=== PATIENT | male | born 2000 | race Caucasian/White ===

== ENCOUNTER 2021-03-15 12:46 | Outpatient (REF) | payer OTHER, SELFPAY ==
[2021-03-15 13:57] LABS: MANUAL DIFF FLAG NO
[2021-03-15 14:10] LABS: Basophils Percent Auto 0.5 % (0-2); Eosinophils Absolute Auto 0.2 X10*3/uL (0.0-0.4); Eosinophils Percent Auto 3.3 % (0-4); Hemoglobin 12.9 g/dl (14.0-18.0); Imm Gran Abs Auto 0.02 X10*3/uL (0.00-0.03); Imm Gran Pct Auto 0.3 % (0.0-0.4); Lymphocytes Absolute Auto 1.9 X10*3/uL (1.2-4.9); Lymphocytes Percent Auto 29.6 % (20-40); Mean Corpuscular HGB Conc 33.9 g/dl (31.0-36.0); Mean Corpuscular Hemoglobin 30.3 pg (27.0-33.0); Mean Corpuscular Volume 89.2 fL (80-98); Mean Platelet Volume 10.9 fL (9.4-12.4); Monocytes Absolute Auto 0.5 X10*3/uL (0.1-1.2); Monocytes Percent Auto 8.4 % (2-11); Neutrophils Absolute Auto 3.7 X10*3/uL (2.0-8.3); Neutrophils Percent Auto 57.9 % (45-73); Platelet Count 269 X10*3/uL (160-400); Red Blood Count 4.26 X10*6/uL (4.60-5.80); Red Cell Distribution Width 13.1 % (11.0-16.0); White Blood Count 6.3 X10*3/uL (4.8-10.8)
[2021-03-15 14:43] LABS: Alanine Aminotransferase 18 U/L (0-40); Albumin Level 4.5 g/dL (3.5-5.0); Alkaline Phosphatase 120 U/L (39-117); Anion Gap 13 (12-20); Aspartate Amino Transferase 21 U/L (5-37); Bilirubin Total 0.5 mg/dL (0.0-1.0); Blood Urea Nitrogen 10 mg/dL (9-16); Calcium 10.3 mg/dL (8.4-10.2); Carbon Dioxide 28 mmol/L (22-29); Chloride 104 mmol/L (96-108); Estimated Glomerular Filt Rate > 60; Glucose Fasting 81 mg/dL (60-99); Potassium 4.2 mmol/L (3.3-5.1); Sodium 141 mmol/L (135-145)
[2021-03-15 15:05] LABS: TSH reflex Free T4 0.31 uIU/mL (0.32-4.0)
[2021-03-15 16:21] LABS: Free T4 (Free Thyroxine) 0.91 ng/dL (0.71-1.85)
== END 2021-03-15 12:47 | disposition home or self-care (01) ==
LOC: HO.WFDLDS 12:46
PROVIDERS: Visit Provider Family Medicine
DX: Z00.00 Encounter for general adult medical examination without abnormal findings (principal); Z15.09 Genetic susceptibility to other malignant neoplasm
CPT/HCPCS: 36415; 80053; 84439; 84443; 85025

== ENCOUNTER 2022-07-12 09:28 | Outpatient (REF) | payer MEDICARE, MEDICAID, SELFPAY ==
[2022-07-12 11:24] LABS: MANUAL DIFF FLAG NO
[2022-07-12 11:41] LABS: Appearance Urine Clear; Color Urine Yellow; Glucose Urine UA Negative (Negative); Leukocyte Esterase Urine Negative (Negative); Nitrite Urine Negative (Negative); PH 6.5 (5.0-9.0); Specific Gravity - Urine 1.025 (1.005-1.025); Urine Blood Negative (Negative); Urine Ketones Negative (Negative); Urine Protein Negative (Neg-Trace)
[2022-07-12 11:47] LABS: Basophils Percent Auto 0.4 % (0-2); Eosinophils Absolute Auto 0.2 X10*3/uL (0.0-0.4); Eosinophils Percent Auto 3.4 % (0-4); Hematocrit 39.8 % (42.0-52.0); Hemoglobin 13.2 g/dl (14.0-18.0); Imm Gran Abs Auto 0.01 X10*3/uL (0.00-0.03); Imm Gran Pct Auto 0.2 % (0.0-0.4); Lymphocytes Absolute Auto 1.8 X10*3/uL (1.2-4.9); Lymphocytes Percent Auto 35.8 % (20-40); Mean Corpuscular HGB Conc 33.2 g/dl (31.0-36.0); Mean Corpuscular Hemoglobin 28.1 pg (27.0-33.0); Mean Corpuscular Volume 84.7 fL (80.0-98.0); Monocytes Absolute Auto 0.4 X10*3/uL (0.1-1.2); Monocytes Percent Auto 7.1 % (2-11); Neutrophils Absolute Auto 2.6 x10*3/uL (2.0-8.3); Neutrophils Percent Auto 53.1 % (45-73); Platelet Count 294 X10*3/uL (160-400); Red Cell Distribution Width 11.9 % (11.0-16.0); White Blood Count 4.9 X10*3/uL (4.8-10.8)
[2022-07-12 13:48] LABS: Alanine Aminotransferase 13 U/L (0-40); Albumin Level 4.6 g/dL (3.5-5.0); Alkaline Phosphatase 116 U/L (39-117); Anion Gap 11 (12-20); Aspartate Amino Transferase 16 U/L (5-37); Bilirubin Total 0.5 mg/dL (0.0-1.0); Blood Urea Nitrogen 18 mg/dL (9-16); Calcium 10.7 mg/dL (8.4-10.2); Carbon Dioxide 31 mmol/L (22-29); Chloride 100 mmol/L (96-108); Cholesterol 159 mg/dL; Estimated Glomerular Filt Rate > 60; Glucose Fasting 93 mg/dL (60-99); HDL Cholesterol 63 mg/dL; LDL Cholesterol Calculated 81 mg/dl; Potassium 4.4 mmol/L (3.3-5.1); Sodium 138 mmol/L (135-145); TSH reflex Free T4 1.69 uIU/mL (0.32-4.0); Total Protein 7.1 g/dL (6.5-8.0); Triglycerides 75 mg/dL
[2022-07-15 08:14] LABS: HBS Num1 0.38 mIU/mL (0-7.99); HBc Num1 0.07 S/CO (0.00-0.79); HBsAGNum1 0.31 S/CO (0.00-0.99); HIV AB/AG Nonreactive (Nonreactive); HIV Num 1 0.08 S/CO (0.00-0.99); Hepatitis B Core Antibody Nonreactive (Nonreactive); Hepatitis B Surface Antigen Negative (Negative); ~HepC Num1 0.08 S/CO (0.00-0.79); ~Hepatitis B Surface Antibody NONREACTIVE (Nonreactive); ~Hepatitis C Antibody Nonreactive (Nonreactive)
[2022-07-15 08:42] LABS: Syphilis Screen Nonreactive (Nonreactive)
== END 2022-07-12 09:29 | disposition home or self-care (01) ==
LOC: HO.WFDLDS 09:28
PROVIDERS: Visit Provider Family Medicine
DX: Z00.00 Encounter for general adult medical examination without abnormal findings (principal); N50.812 Left testicular pain; Z11.3 Encounter for screening for infections with a predominantly sexual mode of transmission
CPT/HCPCS: 36415; 80053; 80061; 81003; 84443; 85025; 86704; 86706; 86780; 86803; 87340; 87389

== ENCOUNTER 2022-08-13 13:16 | Outpatient (REF) | payer MEDICARE, MEDICAID, SELFPAY ==
--- NOTE | ~2022-08-13 | US_ITS ---
EXAMINATION: US SCROTUM CLINICAL INFORMATION: Left testicular lump. COMPARISON: None TECHNIQUE: A sonogram of the scrotum was performed assessing roger-scale appearance and color Doppler flow. Spectral Doppler analysis of the arterial and venous flow were performed in the testes bilaterally. FINDINGS: RIGHT: Right testicle measures 1.5 x 0.6 x 1.1 cm, volume 0.5 mL. No focal testicular parenchymal lesions are visualized. Spectral Doppler analysis of the arterial and venous flow is normal in the right testis. Right epididymal head is normal in size. No right hydrocele or varicocele is seen. Right epididymal Doppler flow is normal. LEFT: Left testicle measures 1.7 x 0.9 x 1.3 cm, volume 1.1 mL. No focal testicular parenchymal lesions are visualized. Spectral Doppler analysis of the arterial and venous flow is normal in the left testis. Left epididymal is not visualized. No left hydrocele or varicocele is seen. Left epididymal Doppler flow is normal. US/US scrotum IMPRESSION: 1. Unremarkable bilateral testes and right epididymis. 2. The left epididymis is not visualized.
== END 2022-08-13 13:17 | disposition home or self-care (01) ==
LOC: HO.US 13:16
PROVIDERS: PCP Family Medicine; Visit Provider Family Medicine
DX: N50.812 Left testicular pain (principal)
CPT/HCPCS: 76870

== ENCOUNTER 2022-12-26 10:06 | Outpatient (REF) | payer MEDICARE, MEDICAID, SELFPAY ==
[2022-12-26 11:15] LABS: MANUAL DIFF FLAG NO
[2022-12-26 11:37] LABS: Basophils Percent Auto 0.8 % (0-2); Eosinophils Absolute Auto 0.2 X10*3/uL (0.0-0.4); Eosinophils Percent Auto 3.6 % (0-4); Hematocrit 37.5 % (42.0-52.0); Hemoglobin 12.8 g/dl (14.0-18.0); Imm Gran Abs Auto 0.01 X10*3/uL (0.00-0.03); Imm Gran Pct Auto 0.2 % (0.0-0.4); Lymphocytes Absolute Auto 1.9 X10*3/uL (1.2-4.9); Lymphocytes Percent Auto 38.4 % (20-40); Mean Corpuscular HGB Conc 34.1 g/dl (31.0-36.0); Mean Corpuscular Hemoglobin 29.2 pg (27.0-33.0); Mean Corpuscular Volume 85.6 fL (80.0-98.0); Mean Platelet Volume 10.7 fL (9.4-12.4); Monocytes Absolute Auto 0.4 X10*3/uL (0.1-1.2); Monocytes Percent Auto 7.6 % (2-11); Neutrophils Absolute Auto 2.5 x10*3/uL (2.0-8.3); Neutrophils Percent Auto 49.4 % (45-73); Platelet Count 319 X10*3/uL (160-400); Red Blood Count 4.38 X10*6/uL (4.60-5.80); Red Cell Distribution Width 12.7 % (11.0-16.0)
[2022-12-26 11:47] LABS: Alanine Aminotransferase 18 U/L (0-40); Albumin Level 4.6 g/dL (3.5-5.0); Alkaline Phosphatase 128 U/L (39-117); Anion Gap 13 (12-20); Aspartate Amino Transferase 19 U/L (5-37); Bilirubin Total 0.4 mg/dL (0.0-1.0); Blood Urea Nitrogen 11 mg/dL (9-16); Calcium 10.3 mg/dL (8.4-10.2); Carbon Dioxide 28 mmol/L (22-29); Chloride 106 mmol/L (96-108); Estimated Glomerular Filt Rate > 60; Glucose Random 97 mg/dL (60-115); Iron 79 mcg/dL (45-160); Percent Iron Saturation 24 % (15-50); Potassium 3.8 mmol/L (3.3-5.1); Sodium 143 mmol/L (135-145); Total Iron Binding Capacity 326 mcg/dL (228-428); Total Protein 7.2 g/dL (6.5-8.0); Unsaturated Iron Binding 247 ug/dL
[2022-12-26 12:21] LABS: Folate 14.5 ng/mL (> or = 4.0); Vitamin B12 674 pg/mL (200-900); Vitamin D 25-OH Total 26.8 ng/mL (>30)
== END 2022-12-26 10:07 | disposition home or self-care (01) ==
LOC: HO.WFDLDS 10:06
PROVIDERS: Visit Provider Family Medicine
DX: Z00.00 Encounter for general adult medical examination without abnormal findings (principal); R10.13 Epigastric pain; E55.9 Vitamin D deficiency, unspecified; E53.8 Deficiency of other specified B group vitamins; D64.9 Anemia, unspecified; R10.9 Unspecified abdominal pain
CPT/HCPCS: 36415; 80053; 82306; 82607; 82746; 83540; 85025

== ENCOUNTER 2023-02-03 08:05 | Outpatient (REF) | payer OTHER, SELFPAY | END 2023-02-03 08:06 | disposition home or self-care (01) | LOC: HO.WFDLNP 08:05 | PROVIDERS: Visit Provider Family Medicine | DX: R10.13 Epigastric pain (principal) | CPT/HCPCS: 87338 ==

== ENCOUNTER 2023-03-04 15:18 | Outpatient (AMB) | payer OTHER, SELFPAY ==
--- NOTE | 2023-03-04 15:20 | MHC.PC.OV ---
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 Accompanied by: Self / Same As Patient Allergies lorazepam [From Ativan] Allergy (Severe, Verified 03/04/23 15:20) Vomiting codeine [CODEINE] Allergy (Unknown, Verified 03/04/23 15:20) UNKNOWN Codeine Phosphate Allergy (Intermediate, Uncoded 03/04/23 10:23) vomitting Tobacco use date assessed: 01/28/23 Dental Screening Dental Screen Date: 03/04/23 Did you have a dental visit in the last 12 months?: Yes Did you have a dental problem in the last 6 months where you did not have access to dental care?: No Was dental information given to patient?: Patient has dentist HPI f/u anemia, labs, chronic conditions HPI Details Patient had recent visit to [facility] for abdominal pain and nausea with vertigo. Had moved his head while sleeping and vertigo started. He was told he had significant nystagmus at home. He went to [place] and was given fluids and ondansetron. Began to feel better and was sent home. 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 Scheduled for follow-up in a few weeks. Still has ongoing mild anemia which Hematology-Oncology is also working up. Elevated calcium level. He is no longer on a calcium Supplement. 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 History of partial surgical removal of colon Family History Mother Brain cancer Lung cancer Maternal Grandmother Lung cancer Sister Bone cancer Social History (Updated 03/04/23 @ 15:27 by Mekhi Serra CMA) Household Members: None Housing: Other Alcohol intake: never Patient Tobacco Use Status: Current everyday Tobacco user Tobacco use type: Cigarette Years Smoked: 6 e-Cigarette/Vaping Use: Currently Using Second Hand Smoke Exposure: No Substance Use Type: Marijuana service: No Current occupational status: unemployed and disabled Current occupational exposures/hazards: No Cognitive needs: No Hearing needs: No Vision needs: No Questionnaire PHQ-9 Over the last 2 weeks, how often have you been bothered by any of the following problems? 1. Little interest or pleasure in doing things: several days 2. Feeling down, depressed, or hopeless: several days 3. Trouble falling or staying asleep, or sleeping too much: several days 4. Feeling tired or having little energy: more than half the days 5. Poor appetite or overeating: several days 6. Feeling bad about yourself - or that you are a failure or have let yourself or your family down: not at all 7. Trouble concentrating on things, such as reading the newspaper or watching television: several days 8. Moving or speaking so slowly that other people could have noticed. Or the opposite - being so fidgety or restless that you have been moving around a lot more than usual: not at all 9. Thoughts that you would be better off or of hurting yourself in some way: not at all Total score: 7 Depression Screening Interpretation: Positive 81949 - PHQ-9 Billing: Yes Source: Developed by Drs. Harris Higginbotham, Carina Hernandez, Burton Martinez and colleagues, with an educational meg from [employer] 6. Thrive Questionnaire Date Thrive assessed: 03/04/23 I am a: Patient What is your living situation today?: I have a steady place to live Within the past 12 months, did the food you bought not last and you didn't have the money to get more?: Never true Within the past 12 months, did you worry whether your food would run out before you got money to buy more?: Never true Do you have trouble paying for medicines?: No Do you have trouble getting transportation to medical appointments?: No Do you have trouble paying your heating and electricity bill?: No Do you have trouble taking care of your child, family member or friend?: No Do you have trouble with day-to-day activities such as bathing, preparing meals, shopping, managing finances, etc.?: No Are you currently unemployed and looking for a job?: No Are you interested in more education?: No Please select the resources that you would like help with: None Currently or been in a relationship where the following occur: no concerns reported LEX-7 AMB Questionnaire LEX-7 Date LEX - 7 assessed: 03/04/23 Feeling nervous, anxious, or on edge: 3 = Nearly every day Not being able to stop or control worryin = Nearly every day Worrying too much about different things: 3 = Nearly every day Trouble relaxin = Several days Being so restless that it is hard to sit still: 0 = Not at all Becoming easily annoyed or irritable: 1 = Several days Feeling afraid as if something awful might happen: 1 = Several days Total LEX-7 score (0-4 normal; 5-9 mild; 10-14 moderate; 15-21 severe): 12 Source: Developed by Drs. Harris Higginbotham, Carina Hernandez, Burton Martinez and colleagues, with an educational meg from [employer] 6. LEX-7 Assessment Billing LEX-7 Assessment Tool: LEX-7 Assessment 38341 Review of Systems Const Denies chills, Denies fatigue, Denies fever(s), Denies headache(s) and Denies weakness ENT Denies dizziness and Denies headache(s) Card Denies chest pain, Denies lightheadedness, Denies dyspnea and Denies other (Palpitations) Resp Denies cough, Denies dyspnea, Denies wheezing and Denies other ( shortness of breath) Musc Denies numbness and Denies tingling Neuro Denies dizziness, Denies headache(s), Denies numbness, Denies tingling, Denies paresthesias and Denies weakness Psych Denies anxiety and Denies depression Endo Denies fatigue Aller/Immun Denies wheezing Physical exam (Primary Care) Vital Signs: Last Vital Signs Pulse 82 03/04/23 15:25 BP 112/60 03/04/23 15:25 Pulse Ox 98 03/04/23 15:25 BMI result Body Mass Index 15.8 Tobacco/Smoking Status: Tobacco use Status Tobacco use date assessed 01/28/23 03/04/23 15:21 Patient Tobacco Use Status Current everyday Tobacco 03/04/23 15:31 Tobacco use type Cigarette 08/01/23 15:27 e-Cigarette/Vaping Use Currently Using 03/04/23 15:27 PHQ-9: PHQ-9 Score PHQ-9: Total score 7 03/04/23 16:18 Depression Screening Interpretation: Positive Thrive Assessment: Date of Thrive Assessment Date Thrive assessed 03/04/23 03/04/23 15:31 Currently or been in a relationship where the following occur: no concerns reported Const General: no acute distress and well developed Nutritional Appearance: well nourished Orientation/consciousness: patient oriented x3 HENMT Head: Yes normocephalic and Yes atraumatic Eyes General: appearance normal, both eyes and all related structures Pupils: Equal, round and reactive pupils present EOM: EOMs intact bilaterally Resp Effort & Inspection: normal respiratory effort Auscultation: clear to auscultation bilaterally Cardio Rate: regular rate Rhythm: regular rhythm Heart sounds: S1 normal heart sound present, S2 normal heart sound present, no gallops, no murmurs and no rubs Neuro General: patient oriented x3 and gait normal Cranial nerves: Yes Equal, round and reactive pupils present Gait exam (Neuro): gait abnormal and Assisted gait required (Ambulates with crutches) Psych Affect: normal affect Assessment and Plan Assessment & Plan (1) Li-Fraumeni syndrome: Code(s): Z15.01 - Genetic susceptibility to malignant neoplasm of breast Plan: Follow-up with Hematology-Oncology (2) Mild anemia: Code(s): D64.9 - Anemia, unspecified Plan: Stable Follow-up with Heme-Onc (3) Vertigo: Code(s): R42 - Dizziness and giddiness Plan: Is symptoms have abated. Has had vertigo previously as well. He will let me know if he has any new symptoms-would refer for vestibular rehab (4) Hypercalcemia: Code(s): E83.52 - Hypercalcemia Plan: Increase hydration Avoid calcium supplements Parathyroid hormone lab still pending Coding Level of Care Code Est Pt Level 4 (26872) Diagnoses Li-Fraumeni syndrome Z15.01 Mild anemia D64.9 Vertigo R42 Hypercalcemia E83.52 Additional Codes LEX-7 Assessment Billing - LEX-7 Assessment Tool: LEX-7 Assessment [id number] ([id number])
[2023-03-04 15:25] VITALS: BP 112/60; PULSE 82; O2SAT 98; BMI 15.8
== END 2023-03-04 16:23 | disposition home or self-care (01) ==
PROVIDERS: PCP Family Medicine; Visit Provider Family Medicine
DX: Z15.01 Genetic susceptibility to malignant neoplasm of breast (principal); D64.9 Anemia, unspecified; R42 Dizziness and giddiness; E83.52 Hypercalcemia
CPT/HCPCS: 99214

== ENCOUNTER → 2023-03-18 10:20 | Outpatient (BNV) | payer OTHER, SELFPAY | PROVIDERS: PCP Family Medicine; Referring Provider Family Medicine; Visit Provider Internal Medicine Medical Oncology | DX: N50.89 Other specified disorders of the male genital organs (principal) | CPT/HCPCS: 99204; 99212; 99213 ==

== ENCOUNTER 2023-03-18 11:02 | Outpatient (REF) | payer OTHER, SELFPAY ==
--- NOTE | ~2023-03-18 | US_ITS ---
EXAMINATION: US SCROTUM CLINICAL INFORMATION: Left testicular mass; history of undescended testes. COMPARISON: Scrotal ultrasound dated 08/13/2022. TECHNIQUE: A sonogram of the scrotum was performed assessing roger-scale appearance and color Doppler flow. Spectral Doppler analysis of the arterial and venous flow were performed in the testes bilaterally. FINDINGS: RIGHT: Right testicle measures 2.1 x 0.6 x 1.7 cm, volume 1.0 mL. No focal testicular parenchymal lesions are visualized. Spectral Doppler analysis of the arterial and venous flow is normal in the right testis. Right epididymal head is normal in size. No right hydrocele or varicocele is seen. Right epididymal Doppler flow is normal. LEFT: Left testicle measures 2.1 x 1.0 x 1.3 cm, volume 1.4 mL. No focal testicular parenchymal lesions are visualized. Spectral Doppler analysis of the arterial and venous flow is normal in the left testis. The left epididymal head is suboptimally visualized but appears to be normal in size. No left hydrocele or varicocele is seen. Left epididymal Doppler flow is normal. US/US scrotum IMPRESSION: Unremarkable ultrasound examination of the bilateral testes and right epididymis. The left epididymis is again suboptimally visualized, without obvious focal finding.
== END 2023-03-18 11:03 | disposition home or self-care (01) ==
LOC: HO.US 11:02
PROVIDERS: PCP Family Medicine; Visit Provider Internal Medicine Medical Oncology
DX: N50.89 Other specified disorders of the male genital organs (principal)
CPT/HCPCS: 76870

== ENCOUNTER 2023-03-24 09:02 | Outpatient (AMB) | payer OTHER, SELFPAY ==
--- NOTE | 2023-03-24 02:10 | A.OFFVIS_ITS ---
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 Intake Note: NEW Patient presents today to established treatment for Testicular Pain: Meds- None Allergies to Antibiotic- No Known Allergies Blood Thinner- None Cone Examiner Required: No Accompanied by: Self / Same As Patient Allergies lorazepam [From Ativan] Allergy (Severe, Verified 03/24/23 09:17) Vomiting codeine [CODEINE] Allergy (Unknown, Verified 03/24/23 09:17) UNKNOWN Codeine Phosphate Allergy (Intermediate, Uncoded 03/24/23 09:17) vomitting HPI HPI Comments History of Present Illness Details Darius is a 23-year-old male who presents today to the office to establish as a new patient for an evaluation of testicular pain. 03/24/2023? 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 He states that at age 1, he had cancer which was removed from the bladder. He states that he went to ER in the past for testicular pain and lump. He states that the lump has recurred 4 weeks ago. He rates the discomfort as 2/10; rarely does he rate the discomfort as 10/10. He has a history of colon cancer and had a total colectomy 12 years ago. He was seen by the oncologist Dr. Driver and underwent a scrotal ultrasound. His family history is significant for bone, lung, and brain cancer. He is currently smoking marijuana and vaping. He is scheduled for a whole body MRI. I discussed further evaluation with him, recommending outpatient Cystoscopy due to his h/o bladder cancer; however he declined at this time. He states that he may consider this pending MRI results. I reviewed the scrotum US results from 03/18/2023 revealed unremarkable ultrasound examination of the bilateral testes and right epididymis. The left epididymis suboptimally visualized, without obvious focal finding. Examination: There was a cyst at the head of left epididymis which was non tender. Evaluation today?UA? leukocytes: negative; blood: negative. Plan: Will send urine for cytology. I have discussed that the lump his is feeling is the left epidydmal cyst Reassured him that there are no testicular masses palpable or noted on US Advised to take Motrin and Tylenol if he experiences the discomfort. He has MRI scheduled thru Oncology. Discussed FU outpatient cystoscopy. Pt declines at this time [facility] Medical History (Updated 03/25/23 @ 17:58 by Nancy Driver MD) Mandibular bone loss Li-Fraumeni syndrome Surgical History History of partial surgical removal of colon Amputated left leg Family History Mother Brain cancer Lung cancer Maternal Grandmother Lung cancer Sister Bone cancer Social History Household Members: None Housing: Other Alcohol intake: never Patient Tobacco Use Status: Current everyday Tobacco user Tobacco use type: Cigarette Years Smoked: 6 e-Cigarette/Vaping Use: Currently Using Second Hand Smoke Exposure: No Substance Use Type: Marijuana service: No Current occupational status: unemployed and disabled Current occupational exposures/hazards: No Cognitive needs: No Hearing needs: No Vision needs: No Review of Systems Const All systems reviewed & are unremarkable except as noted in HPI and below Reports no additional complaints Eyes Reports no additional complaints ENT Reports no additional complaints Card Denies dyspnea Resp Denies cough and Denies dyspnea GI Reports no additional complaints Musc Reports no additional complaints Skin/Breast Denies rash and Denies unusual bruising Neuro Reports no additional complaints Psych Reports no additional complaints Endo Reports no additional complaints Andrew/Lymph Reports no additional complaints Aller/Immun Reports no additional complaints Physical Exam Const General: healthy appearing, no acute distress and well developed Orientation/consciousness: patient oriented x3 HEENT Head: Yes normocephalic and Yes atraumatic Eyes Conjunctivae: conjunctivae normal Neck Neck: Yes normal visual inspection Chest Chest palpation & inspection: normal inspection of the chest Resp Effort & Inspection: normal respiratory effort Cardio Rate: regular rate GI Inspection: Yes normal to inspection Palpation (GI): Soft to palpation Other: Left epidydmal cyst Scrotum: scrotum normal Skin General skin exam: no rashes or lesions noted Neuro General: patient oriented x3 Extrem Other: left leg amputated General: No pedal edema Psych Appearance: grossly normal Affect: normal affect Results AMB Urinalysis, Automated UA Leukoctes 0 Ruby/uL Last Edit by GEETA Ng on 03/24/23 09:33 UA Nitrite Negative Last Edit by GEETA Ng on 03/24/23 09:33 UA Urobilinogen 0.2 mg/dL Last Edit by GEETA Ng on 03/24/23 09:3 3 UA Protein 0 mg/dL Last Edit by GEETA Ng on 03/24/23 09:33 UA pH 6.0 Last Edit by GEETA Ng on 03/24/23 09:33 UA Blood 0 Andrea/uL Last Edit by GEETA Ng on 03/24/23 09:33 UA Specific Nicholson 1.020 Last Edit by GEETA Ng on 03/24/23 09: 33 UA Ketone Negative Last Edit by GEETA Ng on 03/24/23 09:33 UA Bilirubin 0 mg/dL Last Edit by GEETA Ng on 03/24/23 09:33 UA Glucose 0 mg/dL Last Edit by GEETA Ng on 03/24/23 09:33 Results Reviewed Results Reviewed: Laboratory Last Values Urine pH (Auto) 6.0 03/24/23 09:17 Specific Nicholson (Auto) 1.020 03/24/23 09:17 Urine Protein (Auto) 0 mg/dL 03/24/23 09:17 Glucose (UA)(Auto) 0 mg/dL 03/24/23 09:17 Urine Ketones (Auto) Negative 03/24/23 09:17 Urine Blood (Auto) 0 Andrea/uL 03/24/23 09:17 Urine Nitrite (Auto) Negative 03/24/23 09:17 Urine Bilirubin (Auto) 0 mg/dL 03/24/23 09:17 Urine Urobilinogen (Auto) 0.2 mg/dL 03/24/23 09:17 Leukocyte Esterase (Auto) 0 Ruby/uL 03/24/23 09:17 Date of Service: 03/18/23 EXAMINATION: US SCROTUM CLINICAL INFORMATION: Left testicular mass; history of undescended testes. COMPARISON: Scrotal ultrasound dated 08/13/2022. FINDINGS: RIGHT: Right testicle measures 2.1 x 0.6 x 1.7 cm, volume 1.0 mL. No focal testicular parenchymal lesions are visualized. Spectral Doppler analysis of the arterial and venous flow is normal in the right testis. Right epididymal head is normal in size. No right hydrocele or varicocele is seen. Right epididymal Doppler flow is normal. LEFT: Left testicle measures 2.1 x 1.0 x 1.3 cm, volume 1.4 mL. No focal testicular parenchymal lesions are visualized. Spectral Doppler analysis of the arterial and venous flow is normal in the left testis. The left epididymal head is suboptimally visualized but appears to be normal in size. No left hydrocele or varicocele is seen. Left epididymal Doppler flow is normal. IMPRESSION: Unremarkable ultrasound examination of the bilateral testes and right epididymis. The left epididymis is again suboptimally visualized, without obvious focal finding. Assessment & Plan Assessment & Plan (1) Left testicular pain: Code(s): N50.812 - Left testicular pain (2) History of bladder cancer: Code(s): Z85.51 - Personal history of malignant neoplasm of bladder Plan Will send urine for cytology. I have discussed that the lump his is feeling is the left epidydmal cyst Reassured him that there are no testicular masses palpable or noted on US Advised to take Motrin and Tylenol if he experiences the discomfort. He has MRI scheduled thru Oncology. Discussed FU outpatient cystoscopy. Pt declines at this time Orders: Orders AMB Urinalysis Automated 03/24/23 Z13.9 - Encounter for screening, unspecified Urine Cytology 03/24/23 Z85.51 - Personal history of malignant neoplasm of bladder Patient Instructions: The patient had an opportunity to ask questions regarding treatment plan. All questions were answered. Imaging, Laboratory studies and physical exam results were discussed and reviewed in detail. No major barriers to understanding were identified. The patient expressed understanding and agreement with the above treatment plan.? ? ? The patient is aware they should contact our office by phone for worsening of their current condition or the appearance of new symptoms. Compliance is encouraged with any medications and followup testing that is ordered.? ? ? It is a privilege to be allowed the opportunity to participate in the urologic care of your patient. If you have any questions or concerns regarding treatment for the above conditions please do not hesitate to contact me. The office telephone contact is [phone].? ? ? This note is constructed in part using voice recognition software. While every effort has been made to ensure accuracy medical records supervisor errors may have been included.? ? ? Yours sincerely,? ? ? Yanelis Ramachandran MD? Coding Level of Care Code New Pt Level 4 (64926) Diagnoses Left testicular pain N50.812 History of bladder cancer Z85.51
== END 2023-03-24 11:10 | disposition home or self-care (01) ==
PROVIDERS: PCP Family Medicine; Visit Provider Urology
DX: N50.812 Left testicular pain (principal); Z85.51 Personal history of malignant neoplasm of bladder
CPT/HCPCS: 99204

== ENCOUNTER 2023-03-24 09:02 | Outpatient (REF) | payer MEDICARE, MEDICAID, SELFPAY ==
[2023-03-24 17:52] LABS: Urine Cytology See Pathology rpt
== END 2023-03-24 09:03 | disposition home or self-care (01) ==
LOC: HO.LAB 09:02
PROVIDERS: PCP Family Medicine; Visit Provider Urology
DX: N50.812 Left testicular pain (principal); Z85.51 Personal history of malignant neoplasm of bladder
CPT/HCPCS: 81003; 88112; 99202

== ENCOUNTER 2023-06-23 08:19 | Outpatient (AMB) | payer OTHER, SELFPAY ==
[2023-06-23 08:26] VITALS: BP 102/64; PULSE 78; RESP 13; O2SAT 99
--- NOTE | 2023-06-23 08:26 | MHC.PC.OV ---
Vital Signs 06/23/23 08:26 Height 5 ft 5 in BP 102/64 Blood Pressure Location Lt brachial Position Sitting Respiration 13 Pulse 78 Pulse Source Pulse Oximeter Pulse Oximetry (%) 99 Oxygen Delivery Method Room Air Intake Visit Reasons: [facility] [place] Urology - cystoscopy Accompanied by: Self / Same As Patient Allergies lorazepam [From Ativan] Allergy (Severe, Verified 06/23/23 08:36) Vomiting codeine [CODEINE] Allergy (Unknown, Verified 06/23/23 08:36) UNKNOWN Codeine Phosphate Allergy (Intermediate, Uncoded 06/23/23 08:36) vomitting Tobacco use date assessed: 01/28/23 HPI [facility] [place] Urology - cystoscopy HPI Details Li Fraumeni Syndrome [facility] Should have Whole Body MRI Annually Should have GI screening SOB Likely 2nd to Late Chemo effects and Smoking. Should get chest CT Testiculat lump: U/S shows likely Epidydimal cyst MRI shows R Kidney Cyst. Renal U/S Urinary changes and will get Cystoscopy Patient is here for a pre-op for upcoming cystoscopy. Patient reports he was seen by another provider and was concerned for his right lung- way of breathing. Patient reports he has lactating nipples and he would like to have that checked out. They are painful, pressure builds up and he has to squeeze the liquid from his chest. Patient reports he has a painful foot after banging it on metal. Patient reports this hurts more with pressure. Patient is requesting a new RX for [place] crutches/forearm crutches as the ones he currently has are falling apart. [facility] Medical History (Updated 06/23/23 @ 09:28 by Leonel Booth) Mandibular bone loss Li-Fraumeni syndrome Surgical History History of partial surgical removal of colon Amputated left leg Family History Mother Brain cancer Lung cancer Maternal Grandmother Lung cancer Sister Bone cancer Social History Household Members: None Housing: Other Alcohol intake: never Patient Tobacco Use Status: Current everyday Tobacco user Tobacco use type: Cigarette Years Smoked: 6 e-Cigarette/Vaping Use: Currently Using Second Hand Smoke Exposure: No Substance Use Type: Marijuana service: No Current occupational status: unemployed and disabled Current occupational exposures/hazards: No Cognitive needs: No Hearing needs: No Vision needs: No Questionnaire Thrive Questionnaire Date Thrive assessed: 03/04/23 LEX-7 AMB Questionnaire LEX-7 Date LEX - 7 assessed: 03/04/23 Source: Developed by Drs. Harris Higginbotham, Carina Hernandez, Burton Martinez and colleagues, with an educational meg from [employer]. Review of Systems Const Denies chills, Denies fatigue, Denies fever(s), Denies headache(s) and Denies weakness ENT Denies dizziness and Denies headache(s) Card Reports dyspnea Resp Denies cough, Reports dyspnea, Denies wheezing and Denies other (shortness of breath) Musc Denies numbness and Denies tingling Neuro Denies dizziness, Denies headache(s), Denies numbness, Denies tingling and Denies weakness Psych Denies anxiety and Denies depression Endo Denies fatigue Aller/Immun Denies wheezing Physical exam (Primary Care) Vital Signs: Last Vital Signs Pulse 78 06/23/23 08:26 Resp 13 06/23/23 08:26 BP 102/64 06/23/23 08:26 Pulse Ox 99 06/23/23 08:26 Oxygen Delivery Method Room Air 06/23/23 08:26 Tobacco/Smoking Status: Tobacco use Status Tobacco use date assessed 01/28/23 06/23/23 08:39 Patient Tobacco Use Status Current everyday Tobacco 06/23/23 08:39 Tobacco use type Cigarette 06/23/23 08:39 e-Cigarette/Vaping Use Currently Using 06/23/23 08:39 Thrive Assessment: Date of Thrive Assessment Date Thrive assessed 03/04/23 06/23/23 08:39 Const General: well developed; No acute distress Nutritional Appearance: well nourished Orientation/consciousness: patient oriented x3 HENMT Head: Yes normocephalic and Yes atraumatic Eyes General: appearance normal, both eyes and all related structures Pupils: Equal, round and reactive pupils present EOM: EOMs intact bilaterally Resp Other: Crackles down at the bases bilateral bases Effort & Inspection: normal respiratory effort Cardio Rate: regular rate Rhythm: regular rhythm Heart sounds: S1 normal heart sound present, S2 normal heart sound present, no gallops, no murmurs and no rubs Neuro General: patient oriented x3 and gait normal Cranial nerves: Yes Equal, round and reactive pupils present Psych Affect: normal affect Assessment and Plan Assessment & Plan (1) 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 Encouraged?ongoing?cessation. (4) SOB (shortness of breath): Code(s): R06.02 - Shortness of breath Plan: Likely?a?combination?of?late?chemo?affects?and?smoking/vaping Has?CT?scan?schedule Added?PFTs Encouraged?smoking?cessation (5) Cyst of right kidney: Code(s): N28.1 - Cyst of kidney, acquired Plan: Cyst?on?right?kidney?seen?on?whole-body?MRI?this?year. Checking?ultrasound (6) Shortness of breath: Code(s): R06.02 - Shortness of breath Plan: As?above (7) Nipple discharge in male: Code(s): N64.52 - Nipple discharge Plan: Breast?swelling?and?nipple?discharge. Check?prolactin?level Referred?to Endocrine Can?use?hot?water?in?shower?or?how?compresses (8) Breast swelling: Code(s): N63.0 - Unspecified lump in unspecified breast Plan: As?above (9) Amputated left leg: Code(s): S88.912A - Complete traumatic amputation of left lower leg, level unspecified, initial encounter Plan: Needs?new?Mauritian?crutches-ordered (10) Nicotine dependence: Code(s): F17.200 - Nicotine dependence, unspecified, uncomplicated Plan: As?above (11) Anemia: Code(s): D64.9 - Anemia, unspecified Plan: Check?CBC Orders: Orders Pulmonary Test/Procedure Today R06.02 - Shortness of breath Complete Blood Count Auto Diff Today D64.9 - Anemia, unspecified, Z00.00 - Encounter for general adult medical examination without abnormal findings Prolactin Today N64.52 - Nipple discharge Comprehensive Met. Panel Today N64.52 - Nipple discharge Medications: Refilled crutches Walk Easy Crutches - 1 Pair 1 ea 0RF S88.912A - Complete traumatic amputation of left lower leg, level unspecified, initial encounter Coding Level of Care Code Est Pt Level 4 (62710) Diagnoses Li-Fraumeni syndrome Z15.01 History of bladder cancer Z85.51 Smoker F17.200 SOB (shortness of breath) R06.02 Cyst of right kidney N28.1 Nipple discharge in male N64.52 Breast swelling N63.0 Amputated left leg S88.912A Nicotine dependence F17.200 Anemia D64.9
== END 2023-06-23 09:36 | disposition home or self-care (01) ==
PROVIDERS: PCP Family Medicine; Visit Provider Family Medicine
DX: N64.52 Nipple discharge (principal); S88.912A Complete traumatic amputation of left lower leg, level unspecified, initial encounter; Z15.01 Genetic susceptibility to malignant neoplasm of breast; Z85.51 Personal history of malignant neoplasm of bladder; F17.210 Nicotine dependence, cigarettes, uncomplicated; R06.02 Shortness of breath; N28.1 Cyst of kidney, acquired; D64.9 Anemia, unspecified
CPT/HCPCS: 99214

== ENCOUNTER 2023-06-23 09:30 | Outpatient (REF) | payer OTHER, SELFPAY ==
[2023-06-23 11:22] LABS: MANUAL DIFF FLAG NO
[2023-06-23 11:39] LABS: Basophils Percent Auto 0.6 % (0-2); Eosinophils Absolute Auto 0.4 X10*3/uL (0.0-0.4); Eosinophils Percent Auto 5.2 % (0-4); Hemoglobin 13.2 g/dl (14.0-18.0); Imm Gran Abs Auto 0.02 X10*3/uL (0.00-0.03); Imm Gran Pct Auto 0.3 % (0.0-0.4); Lymphocytes Absolute Auto 2.7 X10*3/uL (1.2-4.9); Lymphocytes Percent Auto 40.2 % (20-40); Mean Corpuscular Hemoglobin 28.4 pg (27.0-33.0); Mean Corpuscular Volume 86.2 fL (80.0-98.0); Mean Platelet Volume 10.7 fL (9.4-12.4); Monocytes Absolute Auto 0.5 X10*3/uL (0.1-1.2); Monocytes Percent Auto 6.7 % (2-11); Neutrophils Absolute Auto 3.2 x10*3/uL (2.0-8.3); Platelet Count 366 X10*3/uL (160-400); Red Blood Count 4.64 X10*6/uL (4.60-5.80); Red Cell Distribution Width 13.3 % (11.0-16.0); White Blood Count 6.8 X10*3/uL (4.8-10.8)
[2023-06-23 12:54] LABS: Alanine Aminotransferase 46 U/L (0-40); Albumin Level 4.8 g/dL (3.5-5.0); Alkaline Phosphatase 122 U/L (39-117); Anion Gap 10 (12-20); Aspartate Amino Transferase 33 U/L (5-37); Bilirubin Total 0.3 mg/dL (0.0-1.0); Blood Urea Nitrogen 12 mg/dL (9-16); Calcium 10.9 mg/dL (8.4-10.2); Carbon Dioxide 28 mmol/L (22-29); Chloride 106 mmol/L (96-108); Estimated Glomerular Filt Rate > 60; Glucose Random 90 mg/dL (60-115); Potassium 3.8 mmol/L (3.3-5.1); Sodium 140 mmol/L (135-145); Total Protein 7.7 g/dL (6.5-8.0)
[2023-06-24 08:08] LABS: Prolactin 19.2 ng/mL (2.0-18.0)
== END 2023-06-23 09:31 | disposition home or self-care (01) ==
LOC: HO.WFDLDS 09:30
PROVIDERS: Visit Provider Family Medicine
DX: Z00.00 Encounter for general adult medical examination without abnormal findings (principal); N64.52 Nipple discharge; D64.9 Anemia, unspecified
CPT/HCPCS: 36415; 80053; 84146; 85025

== ENCOUNTER → 2023-06-30 09:53 | Outpatient (REF) | payer OTHER, SELFPAY ==
--- NOTE | ~2023-06-30 | US_ITS ---
EXAMINATION: US RETROPERITONEAL LIMITED (RENAL ONLY) CLINICAL INFORMATION: Renal cyst. COMPARISON: None available. TECHNIQUE: Real-time imaging of the kidneys. FINDINGS: RIGHT KIDNEY: 9.1 x 4.0 x 4.3 cm (SAG x AP x TRV). The kidney is normal in size, contour, and echogenicity. Renal cortical thickness is normal. No calculi or focal parenchymal lesions. No hydronephrosis. LEFT KIDNEY: 9.2 x 4.2 x 4.0 cm (SAG x AP x TRV). The kidney is normal in size, contour, and echogenicity. Renal cortical thickness is normal. At the upper pole, a 6 mm benign, simple cyst is seen, which requires no imaging follow-up. No renal calculi. There is very mild hydronephrosis. US/US renal BI IMPRESSION: 1. There is very mild hydronephrosis. No left hydronephrosis is seen. 2. No solid mass or calculus is seen of the bilateral kidneys.
--- NOTE | 2023-06-30 09:56 | CA_ITS ---
Transthoracic Echocardiogram Patient (Last, First, Middle): Darius Horta, Gender: Male Date of : 2000 Age: 23 Procedure Date: 06/30/2023 Procedure Type: Transthoracic Echocardiogram Location: OP Height: 165.1 cm Weight: 45.36 kg BSA: 1.47 m2 Heart Rate: 61 bpm BP: 130 / 80 mmHg Rn Telephonic: DARLENE/BILL Referring MD: Nancy Driver MD Outsole Flexer: Luis Rutledge MD Symptoms: had adriamycin Study Quality: Adequate ECG Rhythm: Sinus Conclusions: - Normal study Findings Left Ventricle Normal left ventricular size, thickness, and systolic function. The visually estimated ejection fraction is between 60-65%. Diastolic function is normal for age. Peak GLS is -18.8%, within normal limits. Right Ventricle Normal right ventricular cavity size and systolic function. Atria Both atria are normal in size. Interatrial shunt cannot be excluded. Aortic Valve Normal aortic valve structure and function. There is no aortic valve stenosis. There is no aortic valve regurgitation. Mitral Valve Normal mitral valve structure and function. There is trace mitral valve regurgitation. There is no mitral valve stenosis. Pulmonic Valve The pulmonic valve is likely normal. There is trace pulmonic valve regurgitation. Tricuspid Valve Normal tricuspid valve structure. There is trace tricuspid valve regurgitation. The right ventricular systolic pressure is normal. The right ventricular systolic pressure is 19 mmHg. Normal right atrial pressure. There is no evidence of pulmonary hypertension. Great Vessels All visible segments of the aorta are normal in size. The visualized portions of the pulmonary artery and branches are normal. Venous The inferior vena cava is normal in size and collapses greater than 50% with inspiration. Pericardium/Pleural There is no evidence of pericardial effusion. Prior Study Comparison No prior study available for comparison. Measurements 2D Linear Measurements IVSd: 0.53 0.6-0.9/0.6-1.0 cm LVIDd: 4.56 3.9-5.3/4.2-5.9 cm LVIDd Index: 3.10 2.4-3.2/2.2-3.1 cm/m2 LVIDs: 3.39 2.0-3.6 cm LVPWd: 0.63 0.7-1.1 cm LA Diam: 2.80 2.7-3.8/3.0-4.0 cm LAIDs Index: 1.90 1.5-2.3 cm/m2 LV Mass: 95.82 67-162/88-224 g LV Mass Index: 65.18 43-95/49-115 g/m2 LVOT Diam: 1.80 3.0+(-)1.3 cm Mitral Valve MV Pk E: 1.17 MV PK A: 0.35 MV Decel Time: 180.00 E/A: 3.30 E'Lateral: 15.00 E'Medial: 10.10 E/E' Med: 11.60 E/E' Lat: 7.80 PHT: 53.00 MVA PHT: 4.15 Decel Nuckolls: 6.54 Aortic Valve AoV Pk Mario: 0.99 AoV Mn Mario: 0.73 AoV VTI: 0.23 AoV Pk Grad: 4.00 Aov Mn Grad: 2.00 FORTUNATO Cont.VTI: 1.82 LVOT LVOT Pk Mario: 0.78 LVOT Mn Mario: 0.53 LVOT VTI: 0.16 LVOT Pk Grad: 2.00 LVOT Mn Grad: 1.00 LVOT Diam: 1.80 LVOT Area: 2.54 Diastolic Function MV Pk E: 1.17 MV Pk A: 0.35 E/A: 3.30 E'Medial: 10.10 E/E' Med: 11.60 E' Laterial: 15.00 E/E' Lat: 7.80 Right Ventricle TAPSE (mm): 19.90 TVS' Mario: 12.30 Tricuspid Valve TR Pk Mario: 2.02 TR Pk Grad: 16.00 RA Press: 3.00 RVSP: 19.00 Great Vessels Aorta Sinus of Valsalva: 2.58 2.0-3.5 cm Ao Asc: 2.20 2.1-3.4 cm Ao Arch: 2.20 Updated in Other Vendor System with Status of Final Luis Rutledge MD electronically signed on 06/30/2023 3:50:21 PM with status of Final
== END ==
LOC: HO.CARD 09:53
PROVIDERS: PCP Family Medicine; Visit Provider Internal Medicine Medical Oncology
DX: N28.1 Cyst of kidney, acquired (principal); I50.9 Heart failure, unspecified
CPT/HCPCS: 76775; 93306; 93356

== ENCOUNTER → 2023-06-30 09:56 | Outpatient (BNV) | payer OTHER, SELFPAY | PROVIDERS: PCP Family Medicine; Visit Provider Internal Medicine Cardiovascular Disease | DX: I50.9 Heart failure, unspecified (principal) | CPT/HCPCS: 93306 ==

== ENCOUNTER 2023-07-09 10:18 | Outpatient (REF) | payer OTHER, SELFPAY ==
--- NOTE | ~2023-07-09 | CT_ITS ---
EXAMINATION: CT CHEST WITH CONTRAST CLINICAL INFORMATION: Shortness of breath. COMPARISON: None available. TECHNIQUE: Multidetector volumetric CT imaging of the chest was obtained after the administration of 65 mL of Omnipaque 350 intravenous contrast without immediate adverse reactions. Axial MIP volume rendering provided. Sagittal and coronal reformatted images were obtained. This CT examination was performed using dose optimization techniques as appropriate, variously including the following: *Automated exposure control *Adjustment of mA and/or kV according to patient size (this includes techniques or standardized protocols for targeted exams where dose is matched to indication/reason for exam; i.e. extremities or head) *Use of iterative reconstruction technique DLP: 98 mGy-cm FINDINGS: LUNGS: Mildly thick-walled airways with subtle mosaic attenuation suggesting air trapping. No consolidation. Triangular subpleural nodule in the right lower lobe measures 5 mm and is consistent with a parenchymal lymph node. No follow-up imaging is recommended. MEDIASTINUM: Residual thymic tissue in the anterior mediastinum. No mass. No lymphadenopathy. No pericardial effusion. PLEURA: There is no pleural effusion. No pleural mass or thickening. AXILLA: No lymphadenopathy. UPPER ABDOMEN: 1 cm hypoattenuating lesion in segment 7 of the liver likely hemangioma. OSSEOUS STRUCTURES: Unremarkable. CT/CT chest w IV con IMPRESSION: Mild airways disease. No focal pneumonia. 1 cm hypoattenuating lesion in segment 7 of the liver is most likely hemangioma in the absence of a personal history of malignancy and/or chronic liver disease. Correlate clinically. Consider follow-up ultrasound if clinically indicated. Fleischner guidelines were followed.
[2023-07-09] MEDS: iohexoL 350 MG/ML 100 ML INFUS..BTL IV (11:34)
== END 2023-07-09 10:19 | disposition home or self-care (01) ==
LOC: HO.CT 10:18
PROVIDERS: PCP Family Medicine; Visit Provider Internal Medicine Medical Oncology
DX: R06.02 Shortness of breath (principal)
CPT/HCPCS: 71260; Q9967

== ENCOUNTER 2023-07-10 15:41 | Outpatient (AMB) | payer OTHER, SELFPAY ==
--- NOTE | 2023-07-10 15:42 | A.OFFVIS_ITS ---
Intake Intake Visit Reasons: Discuss Cysto hydrodistention Intake Note: Patient presents today via phone to discuss Cystoscopy Meds- None Allergies to Antibiotic- No Known Allergies Blood Thinner- None Hand Model Required: No Accompanied by: Self / Same As Patient Allergies lorazepam [From Ativan] Allergy (Severe, Verified 08/01/23 09:44) Vomiting, manic Codeine Phosphate Allergy (Severe, Uncoded 08/01/23 09:44) vomitting HPI HPI Comments History of Present Illness Details Darius is a 23-year-old male who presents today via Tele-health visit for a follow-up. 07/10/2023? He is followed today to discuss cystoscopy. He was last seen by me on 03/24/2023, urine was sent for cytology which came back with atypical cells. 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 He states that at age 1, he had cancer which was removed from the bladder. His family history is significant for bone, lung, and brain cancer. He is currently smoking marijuana and vaping. I previously recommended outpatient Cystoscopy due to his h/o bladder cancer; which he declined but agrees to proceed at this time Whole body MRI results 05/26/23-- new 9 mm indeterminal left kidney lesion. 06/30/23 US RENAL --At the upper pole, a 6 mm benign, simple cyst is seen, which requires no imaging follow-up. No renal calculi. There is very mild hydronephrosis. Review of charts: Last visit: 03/24/2023? He states that he went to ER in the past for testicular pain and lump. He states that the lump has recurred 4 weeks ago. He rates the discomfort as 2/10; rarely does he rate the discomfort as 10/10. He has a history of colon cancer and had a total colectomy 12 years ago. He was seen by the oncologist Dr. Driver and underwent a scrotal ultrasound. I reviewed the scrotum US results from 03/18/2023 revealed unremarkable ultrasound examination of the bilateral testes and right epididymis. The left epididymis suboptimally visualized, without obvious focal finding. Examination: There was a cyst at the head of left epididymis which was non tender. 07/10/2023: Plan: I reviewed the plan for cystoscopy in OR under anaesthesia and possible bladder biopsy and this will be arranged through office staff. Left kidney lesion on MRI corresponds to simple cyst on fu renal ultrasound [facility] Medical History (Updated 08/03/23 @ 08:13 by Yanelis Ramachandran MD) Multiple body piercings History of colon cancer History of bone cancer Hx of bladder cancer Anxiety Chronic bronchitis Renal cyst History of chemotherapy PONV (postoperative nausea and vomiting) PTSD (post-traumatic stress disorder) Colostomy in place Nausea and vomiting Abdominal pain ADHD Depression Mandibular bone loss Li-Fraumeni syndrome Surgical History (Updated 08/01/23 @ 09:37 by Yecenia Abraham, RN) Hx of abdominal surgery History of removal of Port-a-Cath History of left lower limb amputation Hx of colectomy History of partial surgical removal of colon Amputated left leg Family History Mother Brain cancer Lung cancer Maternal Grandmother Lung cancer Sister Bone cancer Social History (Updated 08/01/23 @ 09:42 by Yecenia Abraham, RN) Household Members: None Housing: Other Are you a primary geriatric personal care aide to a significant other at home: No Do you presently have visiting nurse or other home services: No Alcohol intake: never Comment: aware of trip hazard Patient Tobacco Use Status: Former Tobacco user Tobacco use type: Cigarette Years Smoked: 6 e-Cigarette/Vaping Use: Currently Using Frequency of e-Cigarette/Vaping Use: vapes daily marijuana and nicotine Second Hand Smoke Exposure: No Use of substances other than those prescribed or required for medical reasons: Yes Substance Use Type: Marijuana Substance Use Frequency: Daily Have you been hit, kicked, punched, or otherwise hurt by someone within the past year? If so, by whom?: No Are you DNR?: No Advance Directives: No Advance Directives Information Provided: Yes Advance Directives on File: No Recently lost weight without trying: No Poor oral hygiene: No service: No Current occupational status: unemployed and disabled Current occupational exposures/hazards: No Cognitive needs: No Hearing needs: No Vision needs: No Review of Systems Const All systems reviewed & are unremarkable except as noted in HPI and below Reports no additional complaints Eyes Reports no additional complaints ENT Reports no additional complaints Card Denies dyspnea Resp Denies cough and Denies dyspnea GI Reports no additional complaints Musc Reports no additional complaints Skin/Breast Denies rash and Denies unusual bruising Neuro Reports no additional complaints Psych Reports no additional complaints Endo Reports no additional complaints Andrew/Lymph Reports no additional complaints Aller/Immun Reports no additional complaints Results Reviewed Results Reviewed: Date of Service: 06/30/23 EXAMINATION: US RETROPERITONEAL LIMITED (RENAL ONLY) CLINICAL INFORMATION: Renal cyst. COMPARISON: None available. FINDINGS: RIGHT KIDNEY: 9.1 x 4.0 x 4.3 cm (SAG x AP x TRV). The kidney is normal in size, contour, and echogenicity. Renal cortical thickness is normal. No calculi or focal parenchymal lesions. No hydronephrosis. LEFT KIDNEY: 9.2 x 4.2 x 4.0 cm (SAG x AP x TRV). The kidney is normal in size, contour, and echogenicity. Renal cortical thickness is normal. At the upper pole, a 6 mm benign, simple cyst is seen, which requires no imaging follow-up. No renal calculi. There is very mild hydronephrosis. IMPRESSION: 1. There is very mild hydronephrosis. No left hydronephrosis is seen. 2. No solid mass or calculus is seen of the bilateral kidneys. Collected:03/24/23 Diagnosis Urine, cytology: Rare atypical urothelial cells. COMMENT: Review of the cytology preparation demonstrates a mildly cellular specimen composed of few squames and urothelial cells in a background of abundant crystals. A rare group of urothelial cells show mild cytologic atypia. Clinical History History of malignant neoplasm of bladder Material Received Urine Gross Description 35 cc clear yellow fluid Assessment & Plan Assessment & Plan (1) History of bladder cancer: Code(s): Z85.51 - Personal history of malignant neoplasm of bladder (2) Abnormal urine cytology: Code(s): R82.89 - Other abnormal findings on cytological and histological examination of urine (3) Renal cyst, left: Code(s): N28.1 - Cyst of kidney, acquired Plan I reviewed the plan for cystoscopy in OR under anaesthesia and possible bladder biopsy and this will be arranged through office staff. Patient Instructions: The patient had an opportunity to ask questions regarding treatment plan. All questions were answered. Imaging, Laboratory studies and physical exam results were discussed and reviewed in detail. No major barriers to understanding were identified. The patient expressed understanding and agreement with the above treatment plan. The patient is aware they should contact our office by phone for worsening of their current condition or the appearance of new symptoms. Compliance is encouraged with any medications and followup testing that is ordered. It is a privilege to be allowed the opportunity to participate in the urologic care of your patient. If you have any questions or concerns regarding treatment for the above conditions please do not hesitate to contact me. The office telephone contact is [phone]. This note is constructed in part using voice recognition software. While every effort has been made to ensure accuracy supervisor braiding errors may have been included. Yours sincerely, Yanelis Ramachandran MD Telehealth Telehealth Location of provider rendering services: practice address Location of patient: address on file Patient Identification confirmed using: Name, : Yes Telehealth method: voice only Patient verbally consented to treatment: Yes Patient verbally consented to billing insurance company: Yes Patient informed of any privacy concerns related to visit: Yes Minutes spent on Phone/Video with Pt.: 24 Coding Level of Care Code Tele Est Pt Level 4 (85266) Diagnoses History of bladder cancer Z85.51 Abnormal urine cytology R82.89 Renal cyst, left N28.1
--- OUTSIDE RECORDS SUMMARY | 2023-07-10 15:43 | XMS_ITS | Continuity of Care Document ---
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 wash hands thoroughly after application apply to clean, dry, intact skin, # 30 application, 5 Refills, Maintenance, 06/09/17 16:27:27 Start Date: 06/09/17 Status: Ordered clonidine 0.2 mg oral tablet 1 tablet = 0.2 mg, By Mouth, Daily at bedtime, # 90 tablet, 0 Refills, Maintenance Start Date: 02/19/12 Stop Date: 05/19/12 Status: Ordered cyproheptadine 4 mg oral tablet 1 tablet = 4 mg, By Mouth, 2 times a day, for 30 days, # 60 tablet, 11 Refills, Acute 10/05/16 16:49:05, 10/11/15 16:49:05, Tablet, 1 tablet By Mouth 2 times a day,x30 days Start Date: 10/11/15 Stop Date: 10/05/16 Status: Ordered Detrol By Mouth, 2 times a day, 0 Refills, Maintenance, 10/07/13 13:56:29 Start Date: 10/07/13 Status: Ordered Detrol 1 mg oral tablet 1 tablet = 1 mg, By Mouth, 2 times a day, 0 Refills, Maintenance Start Date: 07/19/11 Status: Ordered fluoxetine 10 mg oral tablet 1 tablet = 10 mg, By Mouth, Daily, # 30 tablet, 1 Refills, Maintenance Start Date: 02/17/12 Status: Ordered Gloves See Instructions, PRN, # 1 box, Refills 11, Tot. Refills 11, Maintenance, for ostomy care, Medical gloves for 0stomy care disp # 1 month supply, 01/22/16 12:01:00, Compound Start Date: 01/22/16 Status: Ordered methylphenidate 10 mg oral tablet See Instructions, 1/2 tablet By Mouth at noon after lunch, for ADHD, # 30 tablet, 0 Refills, Maintenance, Tablet Start Date: 02/17/12 Status: Ordered Multivitamin By Mouth, Daily, 0 Refills, Maintenance, 10/27/14 16:59:32 Start Date: 10/27/14 Status: Ordered Nutritional Supplements See Instructions, # 62 bottle, Refills 11, Tot. 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 Refills 11, Maintenance, Jennifer colostomy bags #[id number] and all associated supplies change bag as directed disp# 1 month supply DX: Colon Cancer; Li Fraumeni Syndrome, 02/16/18 17:02:41 EDT, Compound Start Date: 02/16/18 Status: Ordered Periactin Tablet 4 mg, By Mouth, 3 times a day, Maintenance, 10/07/13 13:56:22 Start Date: 10/07/13 Status: Ordered Ritalin LA 20 mg oral capsule, extended release 1 capsule = 20 mg, By Mouth, Daily in AM, # 60 capsule, 0 Refills, Maintenance, CR Capsule Start Date: 02/17/12 Status: Ordered Wellbutrin By Mouth, 0 Refills, Maintenance, 10/27/14 16:58:50 Start Date: 10/27/14 Status: Ordered Problem List Condition Effective Dates Status Health Status Inform ant ADHD - Attention deficit dis order with hyperactivity(Confirmed) Active 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) 06/23/10 Active Clostridium difficile colitis(Confirmed) Active Deferred condition on [place] II(Confirmed) Active Delayed puberty(Confirmed) Active Depressive Disorder, Not Els ewhere Classified(Confirmed) Active Depressive Disorder, Not Els ewhere Classified(Confirmed) 06/23/10 Active Oppositional defiant disorder(Confirmed) Active Osteogenic sarcoma(Confirmed) Active Phantom pain(Confirmed) Active 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 inhaled glass yesterday from a broken weed jar. No sob or diff breathing; Reason: Other:; Chest Pain; ClinicalQuestion(s): Other: COMPARISON: 05/06/2009. FINDINGS: LINES AND TUBES: None. LUNGS AND PLEURA: Clear lungs. Normal pulmonary vascularity. No pleural effusion. No pneumothorax. HEART, MEDIASTINUM AND JAN: Heart is normal in size. Normal upper mediastinal and hilar contour. BONES AND SOFT TISSUES: No acute abnormality. IMPRESSION: No acute abnormality. WSN: [id number] Ordering Physician: Shea Craig Dictated By: Kermit Merrill MD Dictated Date/Time: 10/14/21 10:50 p Reviewed By: Kermit Merrill MD Signed By: Kermit Merrill MD Signed Date/Time: 10/14/21 10:50 pm Transcribed By: BIRGIT Transcribed Date/Time: 10/14/21 10:49 pm Vital Signs Most recent to oldest [Reference Range]: 1 2 3 Oxygen Saturation [94-100 %] 98 % (10/14/21 11:07 PM) 99 % (10/14/21 9:43 PM) 99 % (10/14/21 9:26 PM) Pulse Rate [55-90 bpm] 92 bpm *H* (10/14/21 11:07 PM) 100 bpm *H* (10/14/21 9:43 PM) 81 bpm (10/14/21 9:26 PM) Blood Pressure [90-138/55-84 mm Hg] 145/92mm Hg *H* (10/14/21 11:07 PM) 146/100mm Hg *H* (10/14/21 9:43 PM) 156/109mm Hg *H* (10/14/21 9:26 PM) Respiratory Rate [16-30 br/min] 18 br/min (10/14/21 11:07 PM) 20 br/min (10/14/21 9:43 PM) 16 br/min (10/14/21 9:26 PM) Temperature [96.8-100.4 DegF] 98.2 DegF (10/14/21 9:26 PM) Mode of Delivery (Oxygen) Room air (10/14/21 11:07 PM) Room air (10/14/21 9:43 PM) Room air (10/14/21 9:26 PM) Blood pressure sites Arm, left (10/14/21 11:07 PM) Arm, left (10/14/21 9:43 PM) Arm, right (10/14/21 9:26 PM) Temperature Route Oral (10/14/21 9:26 PM) Social History Social History Type Response Tobacco Use: 4 or less cigar ettes(less than 1/4 pack)/day in last 30 days. Sex
--- OUTSIDE RECORDS SUMMARY | 2023-07-10 15:43 | XMS_ITS | Continuity of Care Document ---
Author Name Unknown Organization [facility] Address [address] [place] [phone]- Care Team Providers Care Office Professional Name Role Phone Jessica DEMPSEY, Eddie Calvo Primary Care Physician [place] [facility] [place] Date(s): 06/06/21 - 07/06/21 [facility] [address] [place] [phone]- Attending Physician: Hoa Pierson Admitting Physician: Hoa Pierson Referring Physician: AdmtrHoa Allergies, Adverse Reactions, Alerts Substance Reaction Severity [...] units, Refills 11, Tot. 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 Sex
--- OUTSIDE RECORDS SUMMARY | 2023-07-10 15:43 | XMS_ITS | Continuity of Care Document ---
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 Role Phone Jessica DEMPSEY, Eddie Calvo Primary Care Physician Encounter [facility] [place] Date(s): 06/06/21 - 03/13/22 [facility] [address] [place] [phone]- Discharge Disposition: A-D/C Home Attending Physician: Kevin Adames MD Admitting Physician: Kevin Adames MD Referring Physician: Not on Staff, Referring MD Allergies, Adverse Reactions, Alerts Substance Reaction Severity Status codeine 1, 2 Codeine allergy Active Ativan Active 1error 2tylenol with codeine Immunizations Given and Recorded Vaccine Date Status Refusal Reason tetanus/diphtheria/pertussis, acel(Tdap) 08/30/19 Recorded influenza virus vaccine, inactivated 08/14/18 Girma rded influenza virus vaccine, inactivated 08/06/16 Girma rded influenza virus vaccine, inactivated 06/10/15 Grima rded influenza virus vaccine, inactivated 07/12/14 Girma rded influenza virus vaccine, inactivated 05/30/11 Girma rded Meningococcal Conjugate Vaccine 03/09/15 Recorded Hepatitis A Pediatric Vaccine 03/09/15 Recorded Medications cloNIDine 0.1 mg oral tablet 0.1 mg, By Mouth, 2 times a day, # 14 tablet, Refills 0, Tot. Refills 0, Maintenance, 02/28/22 12:11:00 EDT, Route to Pharmacy Electronically, [facility]/pharmacy #[id number], Partial fill upon patient request ifthe prescription is for a schedule II opioid drug.,... 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) 06/23/10 Active Clostridium difficile colitis(Confirmed) Active Deferred condition on [place] II(Confirmed) Active Delayed puberty(Confirmed) Active Depressive Disorder, Not Els ewhere Classified(Confirmed) Active Depressive Disorder, Not Els ewhere Classified(Confirmed) 06/23/10 Active Oppositional defiant disorder(Confirmed) 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
--- OUTSIDE RECORDS SUMMARY | 2023-07-10 15:43 | XMS_ITS | Summary of Care ---
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 Activ e Ativan HYPERACTIVITY Active 1mother not sure if allergic but reports rash with use Problem List Condition Confirmation Course Effective Dates Status Health St atus Informant Li-Fraumeni syndrome Confirmed Active Patient Care team information Personnel Name: SUMMER JAVIER MD Address: Address: [address] [place] [id number]
== END 2023-07-10 16:15 | disposition home or self-care (01) ==
LOC: HO.HUSH 15:41
PROVIDERS: PCP Family Medicine; Visit Provider Urology
DX: Z85.51 Personal history of malignant neoplasm of bladder (principal); R82.89 Other abnormal findings on cytological and histological examination of urine; N28.1 Cyst of kidney, acquired
CPT/HCPCS: 99443

== ENCOUNTER → 2023-07-10 15:41 | Outpatient (BNVA) | payer OTHER, SELFPAY | PROVIDERS: PCP Family Medicine; Visit Provider Urology ==

== ENCOUNTER 2023-08-05 09:51 | Day surgery (SDC) | payer OTHER, SELFPAY ==
[2023-07-31 16:34] VITALS: BMI 15.4
[2023-08-01 09:30] VITALS: BMI 16.6
--- NOTE | 2023-08-01 10:59 | HO.ANESPROP2 ---
HPI - Anesthesia Eval Consult details Narrative: 23yo M for Cystoscopy w/ possible Bladder Biopsy Li-Fraumeni syndrome - s/p ostomy, left leg amp Follows with Stacie Cohen and Dr Driver locally. PONV Hx ETOH abuse - none x 10 months PMFSH Active Problems Active Problems: All Active Problems (Updated 08/01/23 @ 09:37 by Yecenia Abraham, RN) Anemia (Acute) Breast swelling (Acute) Nipple discharge in male (Acute) Shortness of breath (Acute) Cyst of right kidney (Acute) Smoker (Acute) History of bladder cancer (Acute) Epididymal cyst (Acute) Nicotine dependence (Acute) Hypercalcemia (Acute) Vertigo (Acute) Li-Fraumeni syndrome (Acute) Chest discomfort (Acute) Epigastric pain (Acute) Mild anemia (Acute) Fatigue (Acute) Adult general medical exam (Acute) Abdominal pain (Acute) Left testicular pain (Acute) Anxiety with depression (Acute) Bug bite with infection (Acute) Alcohol abuse (Acute) Intermittent palpitations (Acute) Homelessness (Acute) Dermatitis (Acute) Anxiety (Acute) Li-Fraumeni syndrome (Acute) Paronychia of great toe (Acute) Li-Fraumeni syndrome (Acute) Amputated left leg (Acute) Past Medical History Medical History Multiple body piercings History of colon cancer History of bone cancer Hx of bladder cancer Anxiety Chronic bronchitis Renal cyst History of chemotherapy PONV (postoperative nausea and vomiting) PTSD (post-traumatic stress disorder) Colostomy in place Nausea and vomiting Abdominal pain ADHD Depression Mandibular bone loss Li-Fraumeni syndrome Family History Family History Mother Brain cancer Lung cancer Maternal Grandmother Lung cancer Sister Bone cancer Surgical History Surgical History Hx of abdominal surgery History of removal of Port-a-Cath History of left lower limb amputation Hx of colectomy History of partial surgical removal of colon Amputated left leg Social History Social History (Updated 08/01/23 @ 09:42 by Yecenia Abraham, RN) Household Members: None Housing: Other Are you a primary career professional to a significant other at home: No Do you presently have visiting nurse or other home services: No Alcohol intake: never Comment: aware of trip hazard Patient Tobacco Use Status: Former Tobacco user Tobacco use type: Cigarette Years Smoked: 6 e-Cigarette/Vaping Use: Currently Using Second Hand Smoke Exposure: No Substance Use Type: Marijuana service: No Current occupational status: unemployed and disabled Current occupational exposures/hazards: No Cognitive needs: No Hearing needs: No Vision needs: No Meds Allergies Allergy/AdvReac Type Severity Reaction Status Date / Time lorazepam [From Ativan] Allergy Severe Vomiting, Verified 08/05/23 10:08 manic Codeine Phosphate Allergy Severe vomitting Uncoded 08/05/23 10:08 Home Medications Medication Instructions Recorded Confirmed Last Taken Type trazodone 50 mg tablet 50 mg PO BEDTIME 05/05/23 07/08/23 Unknown History Exam Height,Weight and Vital Signs: Height 5 ft 5.04 in Weight 45.359 kg Pertinent Lab Results Pertinent Lab Results: Laboratory Tests 06/23/23 09:31 WBC 6.8 Hgb 13.2 L Hct 40.0 L Plt Count 366 Sodium 140 Potassium 3.8 Chloride 106 Carbon Dioxide 28 BUN 12 Creatinine 0.68 Narrative Narrative: ECHO 06/2023 Conclusions: - Normal study Assessment and Plan Assessment Anesthesia Assessment: Chart Reviewed
[2023-08-05] VITALS (8 sets, daily range): BP systolic 88–135; BP diastolic 36–90; PULSE 51–89; RESP 16–18; TEMP 36.3–36.9; O2SAT 99–100
[2023-08-05] MEDS: Lactated Ringers 1,000 ML 100 ML IVCONT (10:12)
--- NOTE | 2023-08-05 11:11 | HO.ANESPROP2 ---
[facility] Active Problems Active Problems: All Active Problems (Updated 08/03/23 @ 08:13 by Yanelis Ramachandran MD) Renal cyst, left (Acute) Abnormal urine cytology (Acute) Anemia (Acute) Breast swelling (Acute) Nipple discharge in male (Acute) Shortness of breath (Acute) Cyst of right kidney (Acute) Smoker (Acute) History of bladder cancer (Acute) Epididymal cyst (Acute) Nicotine dependence (Acute) Hypercalcemia (Acute) Vertigo (Acute) Li-Fraumeni syndrome (Acute) Chest discomfort (Acute) Epigastric pain (Acute) Mild anemia (Acute) Fatigue (Acute) Adult general medical exam (Acute) Abdominal pain (Acute) Left testicular pain (Acute) Anxiety with depression (Acute) Bug bite with infection (Acute) Alcohol abuse (Acute) Intermittent palpitations (Acute) Homelessness (Acute) Dermatitis (Acute) Anxiety (Acute) Li-Fraumeni syndrome (Acute) Paronychia of great toe (Acute) Li-Fraumeni syndrome (Acute) Amputated left leg (Acute) Past Medical History Medical History Multiple body piercings History of colon cancer History of bone cancer Hx of bladder cancer Anxiety Chronic bronchitis Renal cyst History of chemotherapy PONV (postoperative nausea and vomiting) PTSD (post-traumatic stress disorder) Colostomy in place Nausea and vomiting Abdominal pain ADHD Depression Mandibular bone loss Li-Fraumeni syndrome Family History Family History Mother Brain cancer Lung cancer Maternal Grandmother Lung cancer Sister Bone cancer Family history of problems with anesthesia: No Surgical History Surgical History Hx of abdominal surgery History of removal of Port-a-Cath History of left lower limb amputation Hx of colectomy History of partial surgical removal of colon Amputated left leg History of Problems with Anesthesia: Yes Social History Social History (Updated 08/01/23 @ 09:42 by Yecenia Abraham RN) Household Members: None Housing: Other Are you a primary director long term care to a significant other at home: No Do you presently have visiting nurse or other home services: No Alcohol intake: never Comment: aware of trip hazard Patient Tobacco Use Status: Former Tobacco user Tobacco use type: Cigarette Years Smoked: 6 e-Cigarette/Vaping Use: Currently Using Frequency of e-Cigarette/Vaping Use: vapes daily marijuana and nicotine Second Hand Smoke Exposure: No Use of substances other than those prescribed or required for medical reasons: Yes Substance Use Type: Marijuana Substance Use Frequency: Daily Have you been hit, kicked, punched, or otherwise hurt by someone within the past year? If so, by whom?: No Are you DNR?: No Advance Directives: No Advance Directives Information Provided: Yes Advance Directives on File: No Recently lost weight without trying: No Poor oral hygiene: No service: No Current occupational status: unemployed and disabled Current occupational exposures/hazards: No Cognitive needs: No Hearing needs: No Vision needs: No Meds Allergies Allergy/AdvReac Type Severity Reaction Status Date / Time lorazepam [From Ativan] Allergy Severe Vomiting, Verified 08/05/23 10:08 manic Codeine Phosphate Allergy Severe vomitting Uncoded 08/05/23 10:08 Active Medications: Current Medications Fentanyl (Fentanyl Citrate/Pf 100 Mcg/2 Ml Vial) 25 mcg IVPUSH Q5M PRN; Protocol PRN Reason: Pain, Moderate(Pain Scale 4-6) Lactated Ringer's (Lr) 1,000 mls @ 100 mls/hr IVCONT .Q10H TRACI Last Admin: 08/05/23 10:12 Dose: 100 mls/hr Ondansetron HCl (Ondansetron Hcl 4 Mg/2 Ml Vial) 4 mg IVPUSH ONCE PRN PRN Reason: Nausea and Vomiting Home Medications Medication Instructions Recorded Confirmed Last Taken Type trazodone 50 mg tablet 50 mg PO BEDTIME 05/05/23 07/08/23 Unknown History Exam Height,Weight and Vital Signs: Height 5 ft 5.04 in Weight 45.359 kg Last Vital Signs Temp 98.1 F 08/05/23 10:27 Pulse 89 08/05/23 10:27 Resp 18 08/05/23 10:27 BP 130/83 08/05/23 10:27 Pulse Ox 99 08/05/23 10:27 O2 Del Method Room Air 08/05/23 10:27 Airway Mallampati Class: I TM Dist: >3cm Neck ROM: Full Loose/Missing/Broken Teeth: No Heart: rrr Lungs: clear Assessment and Plan Final Anesthetic Review Family History of Problems with Anesthesia: No History of Problems with Anesthesia: Yes ASA Class: III Final Preanesthetic Review: No Changes in Pt Med Stat, Meds/Allgs Chart Reviewed, Consent Obtained/Reviewed and Anes Risks/Benef Reviewed Patient Risk: Intermediate Procedure Risk: Low Anesthetic Plan Anesthetic Plan: GA Disposition: Standard PACU
--- NOTE | 2023-08-05 11:18 | MHC.SHP ---
Pre-Procedural Eval Section A Date of Service: 08/05/23 The patient is an INPATIENT: No The History & Physical has been completed within 30 days and I have reviewed it.: Yes Section B Chief Complaint: Personal history of malignant neoplasm of bladder Allergies: Allergies Allergy/AdvReac Type Severity Reaction Status Date / Time lorazepam [From Ativan] Allergy Severe Vomiting, Verified 08/05/23 10:08 manic Codeine Phosphate Allergy Severe vomitting Uncoded 08/05/23 10:08 Exam Surgical H&P Exam: Normal: HEENT, Normal: Heart, Normal: Lungs and Normal: Neurological Plan Diagnosis/Plan: Unchanged I have reviewed the history and physical and performed a pertinent physical examination on my patient. No changes have occurred unless specified. Cystoscopy bladder biopsy Time Spent With Patient Time: Total time managing care of this patient today ____ minutes.
--- NOTE | 2023-08-05 12:15 | PC.NURSE ---
Dr. Garcia aware that scopolamine patch was ordered and pulled and that patient refused it once opened. returned into bottom drawer of [facility], pharmacy aware.
--- NOTE | 2023-08-05 12:33 | W.PM.OPN ---
Operative Note Operative Note Date of Service: 08/05/23 Narrative: PREOP DIAGNOSIS: History of bladder cancer, atypical cytology POSTOP DIAGNOSIS: History of bladder cancer, atypical cytology PROCEDURE: CYSTOSCOPY SURGEON: Yanelis Ramachandran MD ANESTHESIA: General Findings: bladder mucosa - no suspicious lesions visualized Details of procedure: The patient was brought into the operating room placed on the OR table in supine position. 2 g of Ancef IV. General anesthesia was administered. The patient was repositioned into lithotomy position, prepped and draped in the usual sterile fashion. Time-out was done per protocol. A pediatric 13 fr cystoscope was placed transurethrally into the bladder. The prostatic urethra was atrophic. The entire bladder was visualized. There were no suspicious bladder lesions seen. The cystoscope was removed. 2% lidocaine urojet was passed transurethrally into the bladder. The patient was brought out of anesthesia and taken to recovery in stable condition. Complications: None Drains: None
[2023-08-05] MEDS: Phenazopyridine HCL 100 MG TABLET PO (12:45)
[2023-08-05] MEDS: ondansetron HCL 4 MG/2 ML VIAL IVPUSH (13:25)
--- NOTE | 2023-08-05 13:55 | PC.NURSE ---
patient with vomiting and see zofran with effect.
== END 2023-08-05 14:01 | disposition home or self-care (01) ==
PROVIDERS: PCP Family Medicine; Visit Provider Urology
PROC: (CPT 52000; principal; 2023-08-05 11:30)
DX: R89.6 Abnormal cytological findings in specimens from other organs, systems and tissues (principal); Z85.51 Personal history of malignant neoplasm of bladder; Z88.5 Allergy status to narcotic agent; Z88.8 Allergy status to other drugs, medicaments and biological substances; Z85.038 Personal history of other malignant neoplasm of large intestine; Z90.49 Acquired absence of other specified parts of digestive tract; Z85.830 Personal history of malignant neoplasm of bone; Z89.612 Acquired absence of left leg above knee; F17.210 Nicotine dependence, cigarettes, uncomplicated
CPT/HCPCS: 52000; J0690; J1100; J2250; J2405; J2704; J3010

== ENCOUNTER → 2023-08-05 09:51 | Outpatient (BNV) | payer OTHER, SELFPAY | PROVIDERS: PCP Family Medicine; Visit Provider Urology | DX: R89.6 Abnormal cytological findings in specimens from other organs, systems and tissues (principal); Z85.51 Personal history of malignant neoplasm of bladder | CPT/HCPCS: 52000 ==

== ENCOUNTER 2023-08-15 10:26 | Outpatient (REF) | payer OTHER, SELFPAY ==
--- NOTE | ~2023-08-15 | US_ITS ---
EXAMINATION: US ABDOMEN COMPLETE CLINICAL INFORMATION: Liver lesion. COMPARISON: CT chest 07/09/2023. Renal ultrasound 06/30/2023. TECHNIQUE: Real-time imaging of the abdominal viscera. FINDINGS: PANCREAS: Normal. ABDOMINAL AORTA: The proximal, mid, and distal segments are normal in caliber. INFERIOR VENA CAVA: Visualized portions are normal. LIVER: Liver has normal size and contour. 1 cm hyperechoic lesion within hepatic segment 7 is consistent with a cavernous hemangioma. It is visible on the recent chest CT from 07/09/2023. Otherwise, liver is unremarkable. GALLBLADDER: Normal. The gallbladder is physiologically distended without evidence of stones, sludge, polyps, wall thickening or pericholecystic fluid. COMMON BILE DUCT: Normal in caliber measuring 0.3 cm in diameter. RIGHT KIDNEY: Normal. No hydronephrosis. No renal calculi or focal parenchymal lesions. The kidney measures approximately 9.2 cm in maximum dimension. LEFT KIDNEY: No hydronephrosis. No renal calculi or focal parenchymal lesions. The kidney measures approximately 9 cm in maximum dimension. SPLEEN: Normal. The spleen measures 8.7 cm in maximum dimension. FREE FLUID: None. US/US abdomen complete IMPRESSION: Small, 1 cm hyperechoic focus in hepatic segment 7 is consistent with a cavernous hemangioma.
== END 2023-08-15 10:27 | disposition home or self-care (01) ==
LOC: HO.US 10:26
PROVIDERS: PCP Family Medicine; Visit Provider Internal Medicine Medical Oncology
DX: K76.9 Liver disease, unspecified (principal)
CPT/HCPCS: 76700

== ENCOUNTER 2023-09-05 13:59 | Outpatient (AMB) | payer OTHER, SELFPAY ==
--- NOTE | 2023-09-05 14:03 | A.OFFVIS_ITS ---
Intake Intake Visit Reasons: FU outpatient cystoscopy Intake Note: Patient presents today for Outpatient Cystoscopy: Meds- None Allergies to Antibiotic- No Known Allergies Blood Thinner- None Proced Tech Required: No Accompanied by: Self / Same As Patient Allergies lorazepam [From Ativan] Allergy (Severe, Verified 08/05/23 10:08) Vomiting, manic Codeine Phosphate Allergy (Severe, Uncoded 08/05/23 10:08) vomitting HPI HPI Comments History of Present Illness Details Darius is a 23-year-old male who presents today for a follow-up. S/P outpatient cystoscopy. 09/05/23--I have reviewed cystoscopy findi ngs, small bladder, no suspicious bladder lesions, Darius states he had increased urgency and frequency post procedure and now he is back to baseline where he complains of intermittent bedwetting. I have discussed use of anticholinergics. He declines at this time but will consider for future if symptoms worsen. He states he smokes marijuana. 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 He states that at age 1, he had cancer which was removed from the bladder. His family history is significant for bone, lung, and brain cancer. He is currently smoking marijuana and vaping. Results: Whole body MRI results 05/26/23-- new 9 mm indeterminal left kidney lesion. 06/30/23 US RENAL --At the upper pole, a 6 mm benign, simple cyst is seen, which requires no imaging follow-up. No renal calculi. There is very mild hydronephrosis. scrotum US results from 03/18/2023 revealed unremarkable ultrasound examination of the bilateral testes and right epididymis. The left epididymis suboptimally visualized, without obvious focal finding. Examination: There was a cyst at the head of left epididymis which was non tender. 09/05/23: Plan: FU in one year, pt will ca ll if bladder spasm symptoms worsen PFSH Medical History (Updated 09/05/23 @ 16:29 by Yanelis Ramachandran MD) Multiple body piercings History of colon cancer History of bone cancer Hx of bladder cancer Anxiety Chronic bronchitis Renal cyst History of chemotherapy PONV (postoperative nausea and vomiting) PTSD (post-traumatic stress disorder) Colostomy in place Nausea and vomiting Abdominal pain ADHD Depression Mandibular bone loss Li-Fraumeni syndrome Surgical History (Updated 09/05/23 @ 14:05 by GEETA Ng) Hx of cystoscopy Hx of abdominal surgery History of removal of Port-a-Cath History of left lower limb amputation Hx of colectomy History of partial surgical removal of colon Amputated left leg Family History Mother Brain cancer Lung cancer Maternal Grandmother Lung cancer Sister Bone cancer Social History (Updated 08/01/23 @ 09:42 by Yecenia Abraham RN) Household Members: None Housing: Other Are you a primary care management specialist to a significant other at home: No Do you presently have visiting nurse or other home services: No Alcohol intake: never Comment: aware of trip hazard Patient Tobacco Use Status: Former Tobacco user Tobacco use type: Cigarette Years Smoked: 6 e-Cigarette/Vaping Use: Currently Using Second Hand Smoke Exposure: No Substance Use Type: Marijuana service: No Current occupational status: unemployed and disabled Current occupational exposures/hazards: No Cognitive needs: No Hearing needs: No Vision needs: No Review of Systems Const All systems reviewed & are unremarkable except as noted in HPI and below Reports no additional complaints Eyes Reports no additional complaints ENT Reports no additional complaints Card Denies dyspnea Resp Denies cough and Denies dyspnea GI Reports no additional complaints Musc Reports no additional complaints Skin/Breast Denies rash and Denies unusual bruising Neuro Reports no additional complaints Psych Reports no additional complaints Endo Reports no additional complaints Andrew/Lymph Reports no additional complaints Aller/Immun Reports no additional complaints Results AMB Urinalysis, Automated UA Leukoctes 0 Ruby/uL Last Edit by GEETA Ng on 09/05/23 14:28 UA Nitrite Negative Last Edit by GEETA Ng on 09/05/23 14:28 UA Urobilinogen 0.2 mg/dL Last Edit by Lisa Carvajal, A on 09/05/23 14:2 8 UA Protein 0 mg/dL Last Edit by Lisa Carvajal, A on 09/05/23 14:28 UA pH 6.0 Last Edit by Lisa Carvajal, A on 09/05/23 14:28 UA Blood 0 Andrea/uL Last Edit by Lisa Carvajal, A on 09/05/23 14:28 UA Specific Cobb 1.015 Last Edit by Lisa Carvajal, A on 09/05/23 14: 28 UA Ketone Negative Last Edit by Lisa Carvajal A on 09/05/23 14:28 UA Bilirubin 0 mg/dL Last Edit by Lisa Carvajal A on 09/05/23 14:28 UA Glucose 0 mg/dL Last Edit by Lisa Carvajal A on 09/05/23 14:28 Results Reviewed Results Reviewed: Laboratory Last Values Urine pH (Auto) 6.0 09/05/23 14:27 Specific Cobb (Auto) 1.015 09/05/23 14:27 Urine Protein (Auto) 0 mg/dL 09/05/23 14:27 Glucose (UA)(Auto) 0 mg/dL 09/05/23 14:27 Urine Ketones (Auto) Negative 09/05/23 14:27 Urine Blood (Auto) 0 Andrea/uL 09/05/23 14:27 Urine Nitrite (Auto) Negative 09/05/23 14:27 Urine Bilirubin (Auto) 0 mg/dL 09/05/23 14:27 Urine Urobilinogen (Auto) 0.2 mg/dL 09/05/23 14:27 Leukocyte Esterase (Auto) 0 Ruby/uL 09/05/23 14:27 Assessment & Plan Assessment & Plan (1) History of bladder cancer: Code(s): Z85.51 - Personal history of malignant neoplasm of bladder (2) Renal cyst, left: Code(s): N28.1 - Cyst of kidney, acquired (3) Bladder spasms: Code(s): N32.89 - Other specified disorders of bladder (4) Enureses: Code(s): R32 - Unspecified urinary incontinence Plan FU in one year, pt will call if bladder spasm symptoms worsen Orders: Orders AMB Urinalysis Automated 09/05/23 Z13.9 - Encounter for screening, unspecified Patient Instructions: The patient had an opportunity to ask questions regarding treatment plan. All questions were answered. Imaging, Laboratory studies and physical exam results were discussed and reviewed in detail. No major barriers to understanding were identified. The patient expressed understanding and agreement with the above treatment plan. The patient is aware they should contact our office by phone for worsening of their current condition or the appearance of new symptoms. Compliance is encouraged with any medications and followup testing that is ordered. It is a privilege to be allowed the opportunity to participate in the urologic care of your patient. If you have any questions or concerns regarding treatment for the above conditions please do not hesitate to contact me. The office telephone contact is [phone]. This note is constructed in part using voice recognition software. While every effort has been made to ensure accuracy business applications manager errors may have been included. Yours sincerely, Yanelis Ramachandran MD Coding Level of Care Code Est Pt Level 4 (31232) Diagnoses History of bladder cancer Z85.51 Renal cyst, left N28.1 Bladder spasms N32.89 Enureses R32
== END 2023-09-05 14:50 | disposition home or self-care (01) ==
PROVIDERS: PCP Family Medicine; Visit Provider Urology
DX: Z85.51 Personal history of malignant neoplasm of bladder (principal); N28.1 Cyst of kidney, acquired; N32.89 Other specified disorders of bladder; R32 Unspecified urinary incontinence
CPT/HCPCS: 99214

== ENCOUNTER → 2023-09-05 13:59 | Outpatient (BNVA) | payer OTHER, SELFPAY | PROVIDERS: PCP Family Medicine; Visit Provider Urology | DX: N28.1 Cyst of kidney, acquired (principal); N32.89 Other specified disorders of bladder; R32 Unspecified urinary incontinence; Z85.51 Personal history of malignant neoplasm of bladder | CPT/HCPCS: 81003; 99212 ==

== ENCOUNTER 2023-09-12 16:29 | Outpatient (AMB) | payer OTHER, SELFPAY ==
[2023-09-12 16:52] VITALS: BP 120/66; PULSE 72; O2SAT 98
--- NOTE | 2023-09-12 16:52 | MHC.PC.OV ---
Vital Signs 09/12/23 16:52 Weight 97 lb BP 120/66 Pulse 72 Pulse Source Pulse Oximeter Pulse Oximetry (%) 98 Oxygen Delivery Method Room Air Intake Visit Reasons: Follow up anemia,labs,chronic conditions Intake Note: Patient is here fto follow up on anemia, labs, and chronic conditions. Allergies lorazepam [From Ativan] Allergy (Severe, Verified 09/12/23 16:53) Vomiting, manic shellfish derived Allergy (Mild, Verified 09/12/23 16:55) throat swelling Codeine Phosphate Allergy (Severe, Uncoded 09/12/23 16:53) vomitting Tobacco use date assessed: 09/12/23 HPI Follow up anemia,labs,chronic conditions HPI Details 23 y/o male presents to f/u anemia, labs, chronic conditions. Hx of bladder cancer - recently seen Urology 09/05/23 for f/u s/p outpatient cystoscopy. Stable anemia. CT scan 07/09/23 showed 1cm hypoattenuating lesion in segment 7 of the liver - most likely hemangioma in the absence of a personal history of malignancy and/or chronic liver disease. [facility] Medical History (Updated 09/12/23 @ 17:05 by Leonel Booth) Multiple body piercings History of colon cancer History of bone cancer Hx of bladder cancer Anxiety Chronic bronchitis Renal cyst History of chemotherapy PONV (postoperative nausea and vomiting) PTSD (post-traumatic stress disorder) Colostomy in place Nausea and vomiting Abdominal pain ADHD Depression Mandibular bone loss Li-Fraumeni syndrome Surgical History Hx of cystoscopy Hx of abdominal surgery History of removal of Port-a-Cath History of left lower limb amputation Hx of colectomy History of partial surgical removal of colon Amputated left leg Family History Mother Brain cancer Lung cancer Maternal Grandmother Lung cancer Sister Bone cancer Social History Household Members: None Housing: Other Are you a primary emergency care attendant to a significant other at home: No Do you presently have visiting nurse or other home services: No Alcohol intake: never Comment: aware of trip hazard Patient Tobacco Use Status: Former Tobacco user Tobacco use type: Cigarette Years Smoked: 6 e-Cigarette/Vaping Use: Currently Using Second Hand Smoke Exposure: No Substance Use Type: Marijuana service: No Current occupational status: unemployed and disabled Current occupational exposures/hazards: No Cognitive needs: No Hearing needs: No Vision needs: No Questionnaire PHQ-9 Over the last 2 weeks, how often have you been bothered by any of the following problems? 1. Little interest or pleasure in doing things: not at all 2. Feeling down, depressed, or hopeless: not at all 3. Trouble falling or staying asleep, or sleeping too much: not at all 4. Feeling tired or having little energy: not at all 5. Poor appetite or overeating: not at all 6. Feeling bad about yourself - or that you are a failure or have let yourself or your family down: not at all 7. Trouble concentrating on things, such as reading the newspaper or watching television: not at all 8. Moving or speaking so slowly that other people could have noticed. Or the opposite - being so fidgety or restless that you have been moving around a lot more than usual: not at all 9. Thoughts that you would be better off or of hurting yourself in some way: not at all Total score: 0 Source: Developed by Drs. Harris Higginbotham, Carina Hernandez, Burton Martinez and colleagues, with an educational meg from [employer]. Thrive Questionnaire Date Thrive assessed: 09/12/23 I am a: Patient What is your living situation today?: I have a steady place to live Within the past 12 months, did the food you bought not last and you didn't have the money to get more?: Never true Within the past 12 months, did you worry whether your food would run out before you got money to buy more?: Never true Do you have trouble paying for medicines?: No Do you have trouble getting transportation to medical appointments?: No Do you have trouble paying your heating and electricity bill?: No Do you have trouble taking care of your child, family member or friend?: No Do you have trouble with day-to-day activities such as bathing, preparing meals, shopping, managing finances, etc.?: Yes Are you currently unemployed and looking for a job?: No Are you interested in more education?: Yes THRIVE Score: 0 AUDIT C Alcohol Use Questionnaire (AUDIT-C) 1. How often do you have a drink containing alcohol?: Never 3. How often do you have six or more drinks on one occasion?: Never Total Score: 0 LEX-7 AMB Questionnaire LEX-7 Date LEX - 7 assessed: 09/12/23 Feeling nervous, anxious, or on edge: 0 = Not at all Not being able to stop or control worryin = Not at all Worrying too much about different things: 0 = Not at all Trouble relaxin = Not at all Being so restless that it is hard to sit still: 0 = Not at all Becoming easily annoyed or irritable: 0 = Not at all Feeling afraid as if something awful might happen: 0 = Not at all Total LEX-7 score (0-4 normal; 5-9 mild; 10-14 moderate; 15-21 severe): 0 Source: Developed by Drs. Harris Higginbotham, Carina Hernandez, Burton Martinez and colleagues, with an educational meg from [employer]. Review of Systems Const Denies chills, Denies fatigue, Denies fever(s), Denies headache(s) and Denies weakness ENT Denies dizziness and Denies headache(s) Card Denies chest pain, Denies lightheadedness, Denies dyspnea and Denies other (Palpitations) Resp Denies cough, Denies dyspnea, Denies wheezing and Denies other ( shortness of breath) Musc Denies numbness and Denies tingling Neuro Denies dizziness, Denies headache(s), Denies numbness, Denies tingling, Denies paresthesias and Denies weakness Psych Denies anxiety and Denies depression Endo Denies fatigue Aller/Immun Denies wheezing Physical exam (Primary Care) Vital Signs: Last Vital Signs Pulse 72 09/12/23 16:52 BP 120/66 09/12/23 16:52 Pulse Ox 98 09/12/23 16:52 Oxygen Delivery Method Room Air 09/12/23 16:52 Tobacco/Smoking Status: Tobacco use Status Tobacco use date assessed 09/12/23 09/12/23 16:56 Patient Tobacco Use Status Former Tobacco user 09/12/23 16:56 Tobacco use type Cigarette 09/12/23 16:56 e-Cigarette/Vaping Use Currently Using 09/12/23 16:56 PHQ-9: PHQ-9 Score PHQ-9: Total score 0 09/12/23 16:58 Thrive Assessment: Date of Thrive Assessment Date Thrive assessed 09/12/23 09/12/23 17:02 Const General: no acute distress and well developed Nutritional Appearance: well nourished Orientation/consciousness: patient oriented x3 HENMT Head: Yes normocephalic and Yes atraumatic Eyes General: appearance normal, both eyes and all related structures Pupils: Equal, round and reactive pupils present EOM: EOMs intact bilaterally Resp Effort & Inspection: normal respiratory effort Auscultation: clear to auscultation bilaterally Cardio Rate: regular rate Rhythm: regular rhythm Heart sounds: S1 normal heart sound present, S2 normal heart sound present, no gallops, no murmurs and no rubs Neuro General: patient oriented x3 and gait normal Cranial nerves: Yes Equal, round and reactive pupils present Psych Affect: normal affect Assessment and Plan Assessment & Plan (1) Anemia: Code(s): D64.9 - Anemia, unspecified Plan: Mild?stable?anemia (2) Hx of bladder cancer: Code(s): Z85.51 - Personal history of malignant neoplasm of bladder Plan: Now?followed?by?Urology No?current?concerns?except?has?bladder?spasms.??They?discussed?anticholinergics?but?he?declined He?can?follow-up?with?them?again?if?he?has?more?problems?otherwise?will?follow-up?in a?year (3) Smoker: Code(s): F17.200 - Nicotine dependence, unspecified, uncomplicated Plan: He?has?stopped?smoking?any?nicotine?product Congratulated?patient?and?his?lung?exam?is?improved. CT?does?so?some lung?changes?and?I?encouraged?him?to?remain?abstinent?of?nicotine?products.??Encouraged?weaning?and?cessation?of?cannabis?products. (4) Bladder spasms: Code(s): N32.89 - Other specified disorders of bladder Plan: As?above (5) Nipple discharge in male: Code(s): N64.52 - Nipple discharge Plan: This?has?stopped Followed?by?endocrinology (6) Li-Fraumeni syndrome: Code(s): Z15.01 - Genetic susceptibility to malignant neoplasm of breast Plan: Currently?stable Follow-up?with?Hematology-Oncology?as?recommended (7) Shortness of breath: Code(s): R06.02 - Shortness of breath Plan: Improved?with?cessation?of?nicotine?products?and?I?encouraged?weaning?and?cessation?of?cannabis (8) Low testosterone: Code(s): R79.89 - Other specified abnormal findings of blood chemistry Plan: Now?on?AndroGel?and?doing?well. Continue?medication?and?follow-up?with?endocrinology (9) Hemangioma: Code(s): D18.00 - Hemangioma unspecified site Plan: Small?hemangioma?seen?on?chest?CT?scan?incidentally and?confirmed?as?hemangioma?on?ultrasound Stable Orders: Orders Comprehensive [place]. Panel Fast Today Z00.00 - Encounter for general adult medical examination without abnormal findings Lipid Panel Today Z00.00 - Encounter for general adult medical examination without abnormal findings UA and rflx microscopic Today Z00.00 - Encounter for general adult medical examination without abnormal findings Vitamin D 25-OH Total Today E55.9 - Vitamin D deficiency, unspecified Complete Blood Count Auto Diff Today D64.9 - Anemia, unspecified, Z00.00 - Encounter for general adult medical examination without abnormal findings Microalbumin, Random (w Creat) Today I10 - Essential (primary) hypertension TSH reflex Free T4 Today Z00.00 - Encounter for general adult medical examination without abnormal findings Coding Level of Care Code Est Pt Level 4 (65531) Diagnoses Anemia D64.9 Hx of bladder cancer Z85.51 Smoker F17.200 Bladder spasms N32.89 Nipple discharge in male N64.52 Li-Fraumeni syndrome Z15.01 Shortness of breath R06.02 Low testosterone R79.89 Hemangioma D18.00
== END 2023-09-12 17:00 ==
PROVIDERS: PCP Family Medicine; Visit Provider Family Medicine
DX: D64.9 Anemia, unspecified (principal); Z85.51 Personal history of malignant neoplasm of bladder; F17.200 Nicotine dependence, unspecified, uncomplicated; N32.89 Other specified disorders of bladder; N64.52 Nipple discharge; Z15.01 Genetic susceptibility to malignant neoplasm of breast; R06.02 Shortness of breath; R79.89 Other specified abnormal findings of blood chemistry; D18.00 Hemangioma unspecified site
CPT/HCPCS: 99214

== ENCOUNTER 2024-01-12 11:20 | Outpatient (AMB) | payer OTHER, SELFPAY ==
[2024-01-12 11:22] VITALS: BP 132/80; PULSE 76; O2SAT 98; BMI 15.0
--- NOTE | 2024-01-12 11:22 | A.OFFPC_ITS ---
Vital Signs 01/12/24 11:22 Height 5 ft 5.04 in Weight 90 lb 2 oz BMI 15.0 BP 132/80 Blood Pressure Location Lt brachial Position Sitting Pulse 76 Pulse Source Pulse Oximeter Pulse Oximetry (%) 98 Oxygen Delivery Method Room Air Intake Visit Reasons: CPE Intake Note: Patient is here today for a physical, and still c/o pain in his left testicle. Patient also complains of an ingrown toe nail. Allergies lorazepam [From Ativan] Allergy (Severe, Verified 01/12/24 11:28) Vomiting, manic shellfish derived Allergy (Mild, Verified 01/12/24 11:28) throat swelling Codeine Phosphate Allergy (Severe, Uncoded 01/12/24 11:28) vomitting Tobacco use date assessed: 01/12/24 Dental Screening Dental Screen Date: 01/12/24 Did you have a dental visit in the last 12 months?: Yes Did you have a dental problem in the last 6 months where you did not have access to dental care?: No Was dental information given to patient?: Patient has dentist HPI CPE HPI Details 23 y/o male presents for a CPE with f/u labs. Recent labs show stable anemia. Pt reports concentrated urine and drinks a good amount of water per day. He does report some dysuria. Has complaints of ongoing L testicular pain. Pt reports work up for this was an epididymal cyst. Has complaints of ingrown toe nail. [facility] Medical History (Updated 01/12/24 @ 12:16 by Leonel Booth) Multiple body piercings History of colon cancer History of bone cancer Hx of bladder cancer Anxiety Chronic bronchitis Renal cyst History of chemotherapy PONV (postoperative nausea and vomiting) PTSD (post-traumatic stress disorder) Colostomy in place Nausea and vomiting Abdominal pain ADHD Depression Mandibular bone loss Li-Fraumeni syndrome Surgical History (Updated 10/07/23 @ 10:50 by Nancy Driver MD) Hx of cystoscopy Hx of abdominal surgery History of removal of Port-a-Cath History of left lower limb amputation Hx of colectomy History of partial surgical removal of colon Amputated left leg Family History Mother Brain cancer Lung cancer Maternal Grandmother Lung cancer Sister Bone cancer Social History Household Members: None Housing: Other Are you a primary janitor caretaker to a significant other at home: No Do you presently have visiting nurse or other home services: No Alcohol intake: never Comment: aware of trip hazard Patient Tobacco Use Status: Former Tobacco user Tobacco use type: Cigarette Years Smoked: 6 e-Cigarette/Vaping Use: Former Use (stopped 6 months ago.) Second Hand Smoke Exposure: No Substance Use Type: Marijuana service: No Current occupational status: unemployed and disabled Current occupational exposures/hazards: No Cognitive needs: No Hearing needs: No Vision needs: No Questionnaire PHQ-9 Over the last 2 weeks, how often have you been bothered by any of the following problems? 1. Little interest or pleasure in doing things: not at all 2. Feeling down, depressed, or hopeless: not at all 3. Trouble falling or staying asleep, or sleeping too much: not at all 4. Feeling tired or having little energy: not at all 5. Poor appetite or overeating: not at all 6. Feeling bad about yourself - or that you are a failure or have let yourself or your family down: not at all 7. Trouble concentrating on things, such as reading the newspaper or watching television: not at all 8. Moving or speaking so slowly that other people could have noticed. Or the opposite - being so fidgety or restless that you have been moving around a lot more than usual: not at all 9. Thoughts that you would be better off or of hurting yourself in some way: not at all Total score: 0 Depression Screening Interpretation: Negative Depression Screening Done: Yes Source: Developed by Drs. Harris Higginbotham, Carina Hernandez, Burton Martinez and colleagues, with an educational meg from [employer]. Thrive Questionnaire Date Thrive assessed: 01/12/24 I am a: Patient What is your living situation today?: I have a steady place to live Within the past 12 months, did the food you bought not last and you didn't have the money to get more?: Never true Within the past 12 months, did you worry whether your food would run out before you got money to buy more?: Never true Do you have trouble paying for medicines?: No Do you have trouble getting transportation to medical appointments?: No Do you have trouble paying your heating and electricity bill?: No Do you have trouble taking care of your child, family member or friend?: No Do you have trouble with day-to-day activities such as bathing, preparing meals, shopping, managing finances, etc.?: No Are you currently unemployed and looking for a job?: No Are you interested in more education?: No THRIVE Score: 0 AUDIT C Alcohol Use Questionnaire (AUDIT-C) 1. How often do you have a drink containing alcohol?: Never 3. How often do you have six or more drinks on one occasion?: Never Total Score: 0 LEX-7 AMB Questionnaire LEX-7 Date LEX - 7 assessed: 01/12/24 Feeling nervous, anxious, or on edge: 0 = Not at all Not being able to stop or control worryin = Not at all Worrying too much about different things: 0 = Not at all Trouble relaxin = Not at all Being so restless that it is hard to sit still: 0 = Not at all Becoming easily annoyed or irritable: 0 = Not at all Feeling afraid as if something awful might happen: 0 = Not at all Total LEX-7 score (0-4 normal; 5-9 mild; 10-14 moderate; 15-21 severe): 0 Source: Developed by Drs. Harris Higginbotham, Carina Hernandez, Burton Martinez and colleagues, with an educational meg from [employer]. Review of Systems Const Denies chills, Denies fatigue, Denies fever(s), Denies headache(s) and Denies weakness Eyes Denies change in vision ENT Denies dizziness, Denies headache(s), Denies hearing loss, Denies nasal congestion, Denies sinus pain, Denies sinus pressure and Denies sore throat Card Denies chest pain, Denies lightheadedness, Denies dyspnea and Denies other (palpitations) Resp Denies cough, Denies dyspnea and Denies wheezing GI Denies abdominal pain, Denies melena, Denies hematochezia, Denies change in bowel habits, Denies dyspepsia and Denies nausea Denies hematuria and Denies dysuria Musc Denies abnormal gait, Denies myalgias, Denies arthralgias, Denies numbness and Denies tingling Skin/Breast Denies rash, Denies unusual bruising and Denies wounds Neuro Denies abnormal gait, Denies dizziness, Denies headache(s), Denies memory loss, Denies numbness, Denies Sensory deficit (Neuro), Denies tingling and Denies w eakness Psych Denies anxiety, Denies depression and Denies memory loss Endo Denies cold intolerance, Denies fatigue, Denies heat intolerance, Denies p olydipsia and Denies polyuria Andrew/Lymph Denies easy bleeding and Denies easy bruising Aller/Immun Denies wheezing Physical exam (Primary Care) Vital Signs: Last Vital Signs Pulse 76 01/12/24 11:22 BP 132/80 01/12/24 11:22 Pulse Ox 98 01/12/24 11:22 Oxygen Delivery Method Room Air 01/12/24 11:22 BMI result Body Mass Index 15.0 Tobacco/Smoking Status: Tobacco use Status Tobacco use date assessed 01/12/24 01/12/24 11:35 Patient Tobacco Use Status Former Tobacco user 01/12/24 11:26 Tobacco use type Cigarette 01/12/24 11:26 e-Cigarette/Vaping Use Former Use (stopped 6 months 01/12/24 11:35 ago.) PHQ-9: PHQ-9 Score PHQ-9: Total score 0 01/12/24 12:05 Depression Screening Interpretation: Negative Thrive Assessment: Date of Thrive Assessment Date Thrive assessed 01/12/24 01/12/24 11:40 Const General: no acute distress, well developed, alert and awake Nutritional Appearance: well nourished and underweight Orientation/consciousness: patient oriented x3 HENMT Head: Yes normocephalic and Yes atraumatic Ears: hearing grossly normal bilaterally and TM's normal bilaterally General nose exam: Normal external nose present and Normal nares present Mouth: Normal oral and palatal mucosa present and moist mucous membranes Teeth and gingiva: dentition normal Throat: Yes posterior oropharynx normal Eyes General: appearance normal, both eyes and all related structures Pupils: Equal, round and reactive pupils present and Pupil accommodation reflex normal EOM: EOMs intact bilaterally Neck Neck: Yes normal visual inspection, Yes no lymphadenopathy and Yes trachea midline Thyroid: Thyroid normal Carotids: no bruits Lymphatic: no lymphadenopathy noted Chest Chest palpation & inspection: normal inspection of the chest Resp Effort & Inspection: normal respiratory effort Auscultation: clear to auscultation bilaterally Cardio Rate: regular rate Rhythm: regular rhythm Heart sounds: S1 normal heart sound present, S2 normal heart sound present, no gallops, no murmurs and no rubs Bruits: no abdominal aortic bruits and no carotid bruits GI Palpation (GI): No Abdominal aortic bruit present, Soft to palpation, nontender, No hepatosplenomegaly present and No Rebound tenderness present Auscultation: normal bowel sounds General: Yes no CVA tenderness Back/Spine/Pelvis Back: no CVA tenderness Cervical Spine: cervical ROM normal and No Cervical spine tenderness Thoracic/Lumbar Spine: thoraco-lumbar ROM normal, No pain with thoraco-lumbar ROM, No thoracic spinal tenderness and No lumbar spinal tenderness Skin Lesions: no lesions Rashes: no rashes Trauma: no lacerations or abrasions Wounds: no wounds Nails: normal Neuro General: patient oriented x3 and No gait normal Cranial nerves: Yes Equal, round and reactive pupils present Cognition (Neuro): normal cognition Gait exam (Neuro): gait abnormal Motor exam (neuro): 5/5 motor strength present throughout Sensory Exam: No Sensory deficit (Neuro) Deep tendon reflexes (DTR's): Right patellar reflex intensity grade: 2+ and Left patellar reflex intensity grade: 2+ Extrem Other: Amuptated L leg General: Yes normal to inspection and No edema Left lower extremity: abnormal to inspection and abnormal ROM Psych Appearance: grossly normal Affect: normal affect Attitude: cooperative Thought process: Normal thought process present Results AMB Urinalysis, Automated UA Leukoctes 0 Ruby/uL Last Edit by Radha Garrett CMA on 01/12/24 12:05 UA Nitrite Negative Last Edit by Radha Garrett CMA on 01/12/24 12:05 UA Urobilinogen 3.5 mg/dL Last Edit by Radha Garrett CMA on 01/12/24 12:05 UA Protein 15 mg/dL Last Edit by Radha Garrett CMA on 01/12/24 12:05 UA pH 6.0 Last Edit by Radha Garrett CMA on 01/12/24 12:05 UA Blood 10 Andrea/uL Last Edit by Radha Garrett CMA on 01/12/24 12:05 UA Specific [place] 1.030 Last Edit by Radha Garrett CMA on 01/12/24 12:0 5 UA Ketone Negative Last Edit by Radha Garrett CMA on 01/12/24 12:05 UA Bilirubin 0 mg/dL Last Edit by Radha Garrett CMA on 01/12/24 12:05 UA Glucose 0 mg/dL Last Edit by Radha Garrett CMA on 01/12/24 12:05 Results Reviewed Results Reviewed: Laboratory Last Values Urine pH (Auto) 6.0 01/12/24 12:01 Specific [place] (Auto) 1.030 01/12/24 12:01 Urine Protein (Auto) 15 mg/dL 01/12/24 12:01 Glucose (UA)(Auto) 0 mg/dL 01/12/24 12:01 Urine Ketones (Auto) Negative 01/12/24 12:01 Urine Blood (Auto) 10 Andrea/uL 01/12/24 12:01 Urine Nitrite (Auto) Negative 01/12/24 12:01 Urine Bilirubin (Auto) 0 mg/dL 01/12/24 12:01 Urine Urobilinogen (Auto) 3.5 mg/dL 01/12/24 12:01 Leukocyte Esterase (Auto) 0 Ruby/uL 01/12/24 12:01 Assessment and Plan Assessment & Plan (1) Adult general medical exam: Code(s): Z00.00 - Encounter for general adult medical examination without abnormal findings Plan: 23-year-old?male?presents?for?complete?physical?exam Encouraged?healthy?diet?with?active?lifestyle?and?plenty?of?exercise (2) 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 He?drinks?plenty?of?water?but?lets?himself?cycle?between?well?hydrated?and?mildl y?dehydrated Maintain?good?hydration?throughout?your?day Call?or?return?to?office?if?worsens?or?not?improving (5) Amputated left leg: Code(s): S88.912A - Complete traumatic amputation of left lower leg, level unspecified, initial encounter (6) Anemia: Code(s): D64.9 - Anemia, unspecified Plan: Stable Follow-up?with?Hematology-Oncology?as?recommended (7) Left testicular pain: Code(s): N50.812 - Left testicular pain Plan: History?of?testicular cysts/epididymal?cyst Follow-up?with?urology Orders: Orders AMB Urinalysis Automated Today R30.0 - Dysuria Coding Level of Care Code Est Pt Level 3 (13651) Est Pt Prev Care 18-39y(81314) Diagnoses Adult general medical exam Z00.00 Li-Fraumeni syndrome Z15.01 Hx of bladder cancer Z85.51 Dysuria R30.0 Amputated left leg S88.912A Anemia D64.9 Left testicular pain N50.812
== END 2024-01-12 12:30 | disposition home or self-care (01) ==
PROVIDERS: PCP Family Medicine; Visit Provider Family Medicine
DX: Z00.00 Encounter for general adult medical examination without abnormal findings (principal); Z15.01 Genetic susceptibility to malignant neoplasm of breast; S88.912A Complete traumatic amputation of left lower leg, level unspecified, initial encounter; R30.0 Dysuria; Z85.51 Personal history of malignant neoplasm of bladder; D64.9 Anemia, unspecified; N50.812 Left testicular pain
CPT/HCPCS: 81003; 99395

== ENCOUNTER 2024-11-02 14:25 | Outpatient (AMB) | payer OTHER, SELFPAY ==
--- NOTE | 2024-11-02 14:31 | A.OFFPC_ITS ---
Vital Signs 11/02/24 14:42 Height 5 ft 5 in Weight 93 lb BMI 15.5 BP 100/60 Blood Pressure Location Rt brachial Position Sitting Respiration 14 Pulse 71 Pulse Source Pulse Oximeter Temp 99.0 F Temp Source Oral Pulse Oximetry (%) 97 Oxygen Delivery Method Room Air Intake Visit Reasons: f/u chronic conditions Intake Note: patient is scheduled to follow up for chronic conditions Community Outreach Advocate Required: No Allergies lorazepam [From Ativan] Allergy (Severe, Verified 11/02/24 14:41) Vomiting, manic shellfish derived Allergy (Mild, Verified 11/02/24 14:41) throat swelling Codeine Phosphate Allergy (Severe, Uncoded 06/14/24 14:20) vomitting Medication List - Last Reconciled 11/02/24 by Eddie Lopez MD crutches Walk Easy Crutches - 1 Pair crutches Walk Easy Crutches - 1 Pair multivitamin 1 tab PO QAM 30 days testosterone 2 pumps topical DAILY Tobacco use date assessed: 01/12/24 Dental Screening Dental Screen Date: 01/12/24 HPI f/u chronic conditions HPI Details 24 y/o male presents to f/u blood pressu re, labs, chronic conditions. BP had been occasionally mildly elevated. Blood pressure today 100/60, 71p. He notes mood continues to fluctuate. He continues to f/u with a therapist. He currently feels steady as far as his mood goes. [facility] Medical History Multiple body piercings History of colon cancer History of bone cancer Hx of bladder cancer Anxiety Chronic bronchitis Renal cyst History of chemotherapy PONV (postoperative nausea and vomiting) PTSD (post-traumatic stress disorder) Colostomy in place Nausea and vomiting Abdominal pain ADHD Depression Mandibular bone loss Li-Fraumeni syndrome Surgical History Hx of cystoscopy Hx of abdominal surgery History of removal of Port-a-Cath History of left lower limb amputation Hx of colectomy History of partial surgical removal of colon Amputated left leg Family History Mother Brain cancer Lung cancer Maternal Grandmother Lung cancer Sister Bone cancer Social History Household Members: None Housing: Other Are you a primary care coordination manager to a significant other at home: No Do you presently have visiting nurse or other home services: No Alcohol intake: never Comment: aware of trip hazard Patient Tobacco Use Status: Former Tobacco user Tobacco use type: Cigarette Years Smoked: 6 e-Cigarette/Vaping Use: Former Use (stopped 6 months ago.) Second Hand Smoke Exposure: No Substance Use Type: Marijuana service: No Current occupational status: unemployed and disabled Current occupational exposures/hazards: No Cognitive needs: No Hearing needs: No Vision needs: No Questionnaire PHQ-9 Over the last 2 weeks, how often have you been bothered by any of the following problems? 1. Little interest or pleasure in doing things: not at all 2. Feeling down, depressed, or hopeless: not at all 3. Trouble falling or staying asleep, or sleeping too much: not at all 4. Feeling tired or having little energy: not at all 5. Poor appetite or overeating: not at all 6. Feeling bad about yourself - or that you are a failure or have let yourself or your family down: not at all 7. Trouble concentrating on things, such as reading the newspaper or watching television: not at all 8. Moving or speaking so slowly that other people could have noticed. Or the opposite - being so fidgety or restless that you have been moving around a lot more than usual: not at all 9. Thoughts that you would be better off or of hurting yourself in some way: not at all Total score: 0 Depression Screening Interpretation: Negative Depression Screening Done: Yes 26483 - PHQ-9 Billing: Yes Source: Developed by Drs. Harris Higginbotham, Carina Hernandez, Burton Martinez and colleagues, with an educational meg from [employer]. Thrive Questionnaire Date Thrive assessed: 11/02/24 I am a: Patient What is your living situation today?: I choose not to answer this question Within the past 12 months, did the food you bought not last and you didn't have the money to get more?: I choose not to answer this question Within the past 12 months, did you worry whether your food would run out before you got money to buy more?: I choose not to answer this question Do you have trouble paying for medicines?: No Do you have trouble getting transportation to medical appointments?: No Do you have trouble paying your heating and electricity bill?: No Do you have trouble taking care of your child, family member or friend?: No Do you have trouble with day-to-day activities such as bathing, preparing meals, shopping, managing finances, etc.?: No Are you currently unemployed and looking for a job?: No Are you interested in more education?: No Please select the resources that you would like help with: None Currently or been in a relationship where the following occur: I choose not to answer THRIVE Score: 0 AUDIT C Alcohol Use Questionnaire (AUDIT-C) 1. How often do you have a drink containing alcohol?: Never 3. How often do you have six or more drinks on one occasion?: Never Total Score: 0 Score Reviewed/Action Taken: Yes LEX-7 AMB Questionnaire LEX-7 Date LEX - 7 assessed: 11/02/24 Feeling nervous, anxious, or on edge: 0 = Not at all Not being able to stop or control worryin = Not at all Worrying too much about different things: 0 = Not at all Trouble relaxin = Not at all Being so restless that it is hard to sit still: 0 = Not at all Becoming easily annoyed or irritable: 0 = Not at all Feeling afraid as if something awful might happen: 0 = Not at all Total LEX-7 score (0-4 normal; 5-9 mild; 10-14 moderate; 15-21 severe): 0 Source: Developed by Drs. Harris Higginbotham, Carina Hernandez, Burton Martinez and colleagues, with an educational meg from [employer]. LEX-7 Assessment Billing LEX-7 Assessment Tool: LEX-7 Assessment 92289 Review of Systems Const Denies chills, Denies fatigue, Denies fever(s), Denies headache(s) and Denies weakness ENT Denies dizziness and Denies headache(s) Card Denies dyspnea Resp Denies cough, Denies dyspnea, Denies wheezing and Denies other (shortness of breath) Musc Denies numbness and Denies tingling Neuro Denies dizziness, Denies headache(s), Denies numbness, Denies tingling and Denies weakness Psych Denies anxiety and Denies depression Endo Denies fatigue Aller/Immun Denies wheezing Physical exam (Primary Care) Vital Signs: Last Vital Signs Temp 99.0 F 11/02/24 14:42 Pulse 71 11/02/24 14:42 Resp 14 11/02/24 14:42 BP 100/60 11/02/24 14:42 Pulse Ox 97 11/02/24 14:42 Oxygen Delivery Method Room Air 11/02/24 14:42 BMI result Body Mass Index 15.5 Tobacco/Smoking Status: Tobacco use Status Tobacco use date assessed 01/12/24 11/02/24 14:48 Patient Tobacco Use Status Former Tobacco user 11/02/24 14:48 Tobacco use type Cigarette 11/02/24 14:48 e-Cigarette/Vaping Use Former Use (stopped 6 months 11/02/24 14:48 ago.) PHQ-9: PHQ-9 Score PHQ-9: Total score 0 11/02/24 14:48 Depression Screening Interpretation: Negative Thrive Assessment: Date of Thrive Assessment Date Thrive assessed 11/02/24 11/02/24 14:48 Currently or been in a relationship where the following occur: I choose not to answer Const General: well developed; No acute distress Nutritional Appearance: well nourished and underweight Orientation/consciousness: patient oriented x3 HENMT Head: Yes normocephalic and Yes atraumatic Eyes General: appearance normal, both eyes and all related structures Pupils: Equal, round and reactive pupils present EOM: EOMs intact bilaterally Resp Effort & Inspection: normal respiratory effort Neuro General: patient oriented x3 and gait normal Cranial nerves: Yes Equal, round and reactive pupils present Psych Affect: normal affect Coding Level of Care Code Est Pt Level 3 (92966) Diagnoses Li-Fraumeni syndrome Z15.01 Anxiety with depression F41.8 Additional Codes LEX-7 Assessment Billing - LEX-7 Assessment Tool: LEX-7 Assessment 22331 ([id number]) PHQ-9 - 42158 - PHQ-9 Billing: Yes ([id number]) Assessment & Plan Assessment & Plan (1) 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 I?am?recommending?an?exercise?regimen?and?have?written?a?letter?in?support?of membership?to?a?gym with?personal?net trainer?if?available. Orders: Orders Complete Blood Count Auto Diff Today Z00.00 - Encounter for general adult medical examination without abnormal findings Microalbumin, Random (w Creat) Today I10 - Essential (primary) hypertension TSH reflex Free T4 Today Z00.00 - Encounter for general adult medical examination without abnormal findings Comprehensive [place]. Panel Fast Today Z00.00 - Encounter for general adult medical examination without abnormal findings Lipid Panel Today Z00.00 - Encounter for general adult medical examination without abnormal findings UA CC w/rflx Micro + Cult Today Z00.00 - Encounter for general adult medical examination without abnormal findings
[2024-11-02 14:42] VITALS: BP 100/60; PULSE 71; RESP 14; TEMP 37.2; O2SAT 97; BMI 15.5
--- OUTSIDE RECORDS SUMMARY | 2024-11-02 17:15 | XMS_ITS | Encounter Summary ---
Author Organization [facility] Address [address] [place] [phone] Phone Care Team Providers Care Immigration Coordinator Name Role Phone Merlene Hyde MD Primary Care Provider [phone] Encounter Details Date Type Department Care Team (Late st Contact Info) Description 03/11/2018 Patient Outreach [facility] [address] [place] [address] Merlene Hyde MD [address] [place] [address] Social History Tobacco Use Types Packs/Day Years Used Date Smoking Tobacco: Every Day Comments:Never smoker Alcohol Use Standard Drinks/Week Comments Yes 0 (1 standard drink = 0.6 oz pur e alcohol) Sex and Gender Information Value Date Recorded Sex Assigned at Not on file Legal Sex Male 4:57 PM EDT Gender Identity Not on file Sexual Orientation Not on file documented as of this encounter Plan of Treatment Not on file documented as of this encounter Visit Diagnoses Not on filedocumented in this encounter Care Teams Immigration Coordinator Relationship Specialty Start Date End Date Merlene Hyde MD [address] [place] [address] PCP - General 03/14/17 09/26/22 documented as of this encounter
--- OUTSIDE RECORDS SUMMARY | 2024-11-02 17:15 | XMS_ITS | Encounter Summary ---
Author Organization [facility] Address [address] [place] [address] Phone Care Team Providers Care Wheel And Pinion Inspector Name Role Phone Merlene Hyde MD Primary Care Provider [phone] Encounter Details Date Type Department Care Team (Late st Contact Info) Description 02/19/2010 Documentation [facility] [place] [address] [place] [address] Family Medicine, Physician [address] [place] [address] Social History Tobacco Use Types Packs/Day Years Used Date Smoking Tobacco: Never Assessed Sex and Gender Information Value Date Recorded Sex Assigned at Not on file Legal Sex Male 4:57 PM EDT Gender Identity Not on file Sexual Orientation Not on file documented as of this encounter Plan of Treatment Not on file documented as of this encounter Visit Diagnoses Not on filedocumented in this encounter Care Teams Wheel And Pinion Inspector Relationship Specialty Start Date End Date Merlene Hyde MD [address] [place] [address] [place] [address] PCP - General 03/14/17 09/26/22 documented as of this encounter
--- OUTSIDE RECORDS SUMMARY | 2024-11-02 17:15 | XMS_ITS | Encounter Summary ---
Author Organization [facility] Address [address] [place] [address] Phone Care Team Providers Care Slitter And Rewinder Name Role Phone Merlene Hyde MD Primary Care Provider [phone] Encounter Details Date Type Department Care Team (Late st Contact Info) Description 05/20/2018 Patient Outreach [facility] 150 [place] [address] Merlene Hyde MD 150 [place] [address] Social History Tobacco Use Types Packs/Day Years [...] on filedocumented in this encounter Care Teams Slitter And Rewinder Relationship Specialty Start Date End Date Merlene Hyde MD 150 [place] [address] PCP - General 03/14/17 09/26/22 documented as of this encounter
--- OUTSIDE RECORDS SUMMARY | 2024-11-02 17:15 | XMS_ITS | Encounter Summary ---
Author Organization [facility] Address [address] [place] [address] Phone Care Team Providers Care Operator Ground Based Air Defence Name Role Phone Merlene Hyde MD Primary Care Provider [phone] Encounter Details Date Type Department Care Team (Late st Contact Info) Description 12/18/2017 Patient Outreach [facility] [place] 150 [place] [address] Merlene Hyde MD 150 [place], [place] 8[address]40 Social History Tobacco Use Types Packs/Day Years Used Date Smoking Tobacco: Never Comments:Never smoker Sex and Gender Information Value Date Recorded Sex Assigned at Not on file Legal Sex Male 4:57 PM EDT Gender Identity Not on file Sexual Orientation Not on file documented as of this encounter Progress Notes * Fabiola Herrera RN - 12/18/2017 12:19 PM EDT Thank you Jeny! documented in this encounter Plan of Treatment Not on file documented as of this encounter Visit Diagnoses Not on filedocumented in this encounter Care Teams Operator Ground Based [employer] Defence Relationship Specialty Start Date End Date Merlene Hyde MD [address] [place] [address] PCP - General 03/14/17 09/26/22 documented as of this encounter
--- OUTSIDE RECORDS SUMMARY | 2024-11-02 17:15 | XMS_ITS | Encounter Summary ---
Author Organization [facility] Address [address] [place] [address] Phone Care Team Providers Care Investigator Narcotics Name Role Phone Merlene Hyde MD Primary Care Provider Encounter Details Date Type Department Care Team (Late st Contact Info) Description 11/10/2015 Documentation [facility] [place] Family Medicine [address] [place] [address] Family Medicine, Physician [address] [place] [address] Social History Tobacco Use Types Packs/Day Years [...] on filedocumented in this encounter Care Teams Investigator Narcotics Relationship Specialty Start Date End Date Merlene Hyde MD [address] [place] [address] [place] [address] PCP - General 03/14/17 09/26/22 documented as of this encounter
--- OUTSIDE RECORDS SUMMARY | 2024-11-02 17:15 | XMS_ITS | Encounter Summary ---
Author Organization [facility] Address [address] [place] [address] Phone Care Team Providers Care Sub Arc Operator Name Role Phone Merlene Hyde MD Primary Care Provider [phone] Encounter Details Date Type Department Care Team (Late st Contact Info) Description 06/01/2013 Documentation [facility] [place] [address] [place] [address] Family Medicine, Physician [address] [place] [address] Social History Tobacco Use Types Packs/Day Years [...] on filedocumented in this encounter Care Teams Sub Arc Operator Relationship Specialty Start Date End Date Merlene Hyde MD [address] [place] [address] [place] [address] PCP - General 03/14/17 09/26/22 documented as of this encounter
--- OUTSIDE RECORDS SUMMARY | 2024-11-02 17:15 | XMS_ITS | Encounter Summary ---
Author Organization [facility] Address [address] [place] [address] Phone Care Team Providers Care Bleach Machine Operator Name Role Phone Merlene Hyde MD Primary Care Provider [phone] Encounter Details Date Type Department Care Team (Late st Contact Info) Description 09/29/2018 Patient Outreach [facility] [place] 150 [place] [address] Merlene Hyde MD 150 [place] [address] Social History Tobacco Use Types Packs/Day Years [...] as of this encounter Progress Notes * Merlene Hyde MD - 09/29/2018 2:05 PM EST That's unfortunate truly; if you speak to him again, you can ask him if he would rather just go seea urologist for an opinion about his testicle rather than having ultrasound done first; his anatomyis different given his surgeries and it was not a straightforward exam--so yes it definitely needs evaluation--but if he would go see a urologist that would be an ok first step; please let me know what he wants to do; thanks documented in this encounter Plan of Treatment Not on file documented as of this encounter Visit Diagnoses Not on filedocumented in this encounter Care Teams Bleach Machine Operator Relationship Specialty Start Date End Date Merlene Hyde MD 150 [facility] CAR[place] Garcia [address] PCP - General 03/14/17 09/26/22 documented as of this encounter
--- OUTSIDE RECORDS SUMMARY | 2024-11-02 17:15 | XMS_ITS | Encounter Summary ---
Author Organization [facility] Address [address] [place] [address] Phone Care Team Providers Care Maintenance Of Way Clerk Name Role Phone Merlene Hyde MD Primary Care Provider [phone] Encounter Details Date Type Department Care Team (Late st Contact Info) Description 04/24/2018 Patient Outreach [facility] [place] [address] [place] [address] Merlene Hyde MD 150 [place] [address] Social History Tobacco Use Types Packs/Day Years [...] Progress Notes * Merlene Hyde MD - 04/24/2018 9:57 AM EDT Agree; thanks documented in this encounter Plan of Treatment Not on file documented as of this encounter Visit Diagnoses Not on filedocumented in this encounter Care Teams Maintenance Of Way Clerk Relationship Specialty Start Date End Date Merlene Hyde MD 150 [place] [address] PCP - General 03/14/17 09/26/22 documented as of this encounter
--- OUTSIDE RECORDS SUMMARY | 2024-11-02 17:15 | XMS_ITS | Encounter Summary ---
Author Organization [facility] Address [address] [place] [address] Phone Care Team Providers Care Time Signal Wirer Name Role Phone Merlene Hyde MD Primary Care Provider [phone] Encounter Details Date Type Department Care Team (Late st Contact Info) Description 10/21/2013 Documentation [facility] [place] [address] [place] [address] Family Medicine, Physician [address] [place] [address] Social History Tobacco Use Types Packs/Day Years [...] on filedocumented in this encounter Care Teams Time Signal Wirer Relationship Specialty Start Date End Date Merlene Hyde MD [address] [place] [address] [place] [address] PCP - General 03/14/17 09/26/22 documented as of this encounter
--- OUTSIDE RECORDS SUMMARY | 2024-11-02 17:15 | XMS_ITS | Encounter Summary ---
Author Organization [facility] Address [address] [place] [address] Phone Care Team Providers Care Landscape Artist Name Role Phone Merlene Hyde MD Primary Care Provider [phone] Encounter Details Date Type Department Care Team (Late st Contact Info) Description 04/16/2013 Documentation [facility] [place] [address] [place] [address] Family Medicine, Physician [address] [place] [address] Social History Tobacco Use Types Packs/Day Years [...] on filedocumented in this encounter Care Teams Landscape Artist Relationship Specialty Start Date End Date Merlene Hyde MD [address] [place] [address] [place] [address] PCP - General 03/14/17 09/26/22 documented as of this encounter
--- OUTSIDE RECORDS SUMMARY | 2024-11-02 17:15 | XMS_ITS | Encounter Summary ---
Author Organization [facility] Address [address] [place] [address] Phone Care Team Providers Care Lathmaker Name Role Phone Merlene Hyde MD Primary Care Provider [phone] Encounter Details Date Type Department Care Team (Late st Contact Info) Description 12/22/2015 Documentation [facility] [place] [address] [place] [address] Family Medicine, Physician [address] [place] [address] Social History Tobacco Use Types Packs/Day Years [...] on filedocumented in this encounter Care Teams Lathmaker Relationship Specialty Start Date End Date Merlene Hyde MD [address] [place] [address] [place] [address] PCP - General 03/14/17 09/26/22 documented as of this encounter
--- OUTSIDE RECORDS SUMMARY | 2024-11-02 17:15 | XMS_ITS | Encounter Summary ---
Author Organization [facility] Address [address] [place] [address] Phone Care Team Providers Care Automated Teller Manager Name Role Phone Merlene Hyde MD Primary Care Provider [phone] Encounter Details Date Type Department Care Team (Late st Contact Info) Description 10/15/2013 Documentation [facility] [place] [address] [place] [address] Family Medicine, Physician [address] [place] [address] Social History Tobacco Use Types Packs/Day Years [...] on filedocumented in this encounter Care Teams Automated Teller Manager Relationship Specialty Start Date End Date Merlene Hyde MD [address] [place] [address] [place] [address] PCP - General 03/14/17 09/26/22 documented as of this encounter
--- OUTSIDE RECORDS SUMMARY | 2024-11-02 17:15 | XMS_ITS | Encounter Summary ---
Author Organization [facility] Address [address] [place] [address] Phone Care Team Providers Care Customer Engagement Specialist Name Role Phone Merlene Hyde MD Primary Care Provider [phone] Reason for Visit * Reason Onset Date Comments Cancel appointment tomorrow 10/06/2018 Encounter Details Date Type Department Care Team (Late st Contact Info) Description 10/06/2018 Patient Outreach [facility] 150 [place] [address] Merlene Hyde MD 150 [place] [address] Cancel appointment tomorrow Social History Tobacco Use Types Packs/Day Years [...] on filedocumented in this encounter Care Teams Customer Engagement Specialist Relationship Specialty Start Date End Date Merlene Hyde MD 150 [place] [address] PCP - General 03/14/17 09/26/22 documented as of this encounter
--- OUTSIDE RECORDS SUMMARY | 2024-11-02 17:15 | XMS_ITS | Encounter Summary ---
Author Organization [facility] Address [address] [place] [address] Phone Care Team Providers Care Pulvi Mixer Operator Name Role Phone Merlene Hyde MD Primary Care Provider [phone] Encounter Details Date Type Department Care Team (Late st Contact Info) Description 04/18/2015 [place] [facility] [place] [facility] [place] [address] [place] [address] Family Medicine, Physician [address] [place] [address] Social History Tobacco Use Types Packs/Day Years [...] on filedocumented in this encounter Care Teams Pulvi Mixer Operator Relationship Specialty Start Date End Date Merlene Hyde MD [address] [place] [address] [place] [address] PCP - General 03/14/17 09/26/22 documented as of this encounter
--- OUTSIDE RECORDS SUMMARY | 2024-11-02 17:15 | XMS_ITS | Encounter Summary ---
Author Organization [facility] Address [address] [place] [address] Phone Care Team Providers Care Roll Picker Name Role Phone Merlene Hyde MD Primary Care Provider [phone] Reason for Visit * Reason Onset Date Comments Follow-up 10/01/2018 Encounter Details Date Type Department Care Team (Late st Contact Info) Description 10/01/2018 Patient Outreach [facility] [place] 150 [place] [address] Merlene Hyde MD [address] [place] [address] Follow-up Social History Tobacco Use Types Packs/Day Years [...] Progress Notes * Merlene Hyde MD - 10/01/2018 3:11 PM EST Okay; thanks documented in this encounter Plan of Treatment Not on file documented as of this encounter Visit Diagnoses Not on filedocumented in this encounter Care Teams Roll Picker Relationship Specialty Start Date End Date Merlene Hyde MD [address] [place] [address] [place] Garcia [address] PCP - General 03/14/17 09/26/22 documented as of this encounter
--- OUTSIDE RECORDS SUMMARY | 2024-11-02 17:15 | XMS_ITS | Encounter Summary ---
Author Organization [facility] Address [address] [place] [address] Phone Care Team Providers Care Host/Hostess Restaurant Name Role Phone Merlene Hyde MD Primary Care Provider [phone] Encounter Details Date Type Department Care Team (Late st Contact Info) Description 09/09/2018 Patient Outreach [facility] 150 [place] [address] Merlene Hyde MD 150 [place] [address] Social History Tobacco Use Types Packs/Day Years [...] Progress Notes * Merlene Hyde MD - 09/09/2018 11:59 PM EST Seen today; thanks for the update documented in this encounter Plan of Treatment Not on file documented as of this encounter Visit Diagnoses Not on filedocumented in this encounter Care Teams Host/Hostess Restaurant Relationship Specialty Start Date End Date Merlene Hyde MD 150 [place] [address] PCP - General 03/14/17 09/26/22 documented as of this encounter
--- OUTSIDE RECORDS SUMMARY | 2024-11-02 17:15 | XMS_ITS | Encounter Summary ---
Author Organization [facility] Address [address] [place] [address] Phone Care Team Providers Care Sign Language Teacher Name Role Phone Merlene Hyde MD Primary Care Provider [phone] Reason for Visit * Reason Onset Date Comments Cancel appointment 10/06/2018 Encounter Details Date Type Department Care Team (Late st Contact Info) Description 10/06/2018 Patient Outreach [facility] [place] 150 [place] [address] Merlene Hyde MD 150 [place] [address] Cancel appointment Social History Tobacco Use Types Packs/Day Years [...] Progress Notes * Merlene Hyde MD - 10/06/2018 7:55 AM EST So discouraging * Merlene Hyde MD - 10/06/2018 7:55 AM EST Thank you for your persistence documented in this encounter Plan of Treatment Not on file documented as of this encounter Visit Diagnoses Not on filedocumented in this encounter Care Teams Sign Language Teacher Relationship Specialty Start Date End Date Merlene Hyde MD [address] [place] [address] [place] Garcia [address] PCP - General 03/14/17 09/26/22 documented as of this encounter
--- OUTSIDE RECORDS SUMMARY | 2024-11-02 17:15 | XMS_ITS | Encounter Summary ---
Author Organization [facility] Address [address] [place] [address] Phone Care Team Providers Care Frozen Pie Maker Name Role Phone Merlene Hyde MD Primary Care Provider [phone] Reason for Visit * Reason Onset Date Comments Dentist appointment 10/05/2018 Encounter Details Date Type Department Care Team (Late st Contact Info) Description 10/05/2018 Patient Outreach [facility] [place] 150 [place] [address] Merlene Hyde MD 150 [place] [address] Dentist appointment Social History Tobacco Use Types Packs/Day [...] Progress Notes * Merlene Hyde MD - 10/05/2018 9:12 AM EST Okay; what number and email do you use to reach him? I'd like to try to reach out-thanks * Merlene Hyde MD - 10/05/2018 9:12 AM EST Very upsetting that he's not following through; I tried calling the phone number you gave me And itwent right to voicemail twice , but said it's not set up * Merlene Hyde MD - 10/05/2018 9:12 AM EST Noted; thanks; will try to reach him documented in this encounter Plan of Treatment Not on file documented as of this encounter Visit Diagnoses Not on filedocumented in this encounter Care Teams Frozen Pie Maker Relationship Specialty Start Date End Date Merlene Hyde MD [address] [place] [address] [place] Garcia [address] PCP - General 03/14/17 09/26/22 documented as of this encounter
--- OUTSIDE RECORDS SUMMARY | 2024-11-02 17:15 | XMS_ITS | Encounter Summary ---
Author Organization [facility] Address [address] [place] [address] Phone Care Team Providers Care Vascular Surgeon Name Role Phone Merlene Hyde MD Primary Care Provider [phone] Encounter Details Date Type Department Care Team (Late st Contact Info) Description 09/03/2013 Documentation [facility] [place] [address] [place] [address] Family Medicine, Physician [address] [place] [address] Social History Tobacco Use Types Packs/Day Years [...] on filedocumented in this encounter Care Teams Vascular Surgeon Relationship Specialty Start Date End Date Merlene Hyde MD [address] [place] [address] [place] [address] PCP - General 03/14/17 09/26/22 documented as of this encounter
--- OUTSIDE RECORDS SUMMARY | 2024-11-02 17:15 | XMS_ITS | Encounter Summary ---
Author Organization [facility] Address [address] [place] [address] Phone Care Team Providers Care Field Care Coordinator Name Role Phone Merlene Hyde MD Primary Care Provider [phone] Encounter Details Date Type Department Care Team (Late st Contact Info) Description 05/27/2018 Patient Outreach [facility] [place] 150 [place] [address] Merlene Hyde MD 150 [place] [address] Social History Tobacco Use Types Packs/Day Years [...] Progress Notes * Merlene Hyde MD - 05/27/2018 3:29 PM EDT Thank you for all of the follow ups and the updated info documented in this encounter Plan of Treatment Not on file documented as of this encounter Visit Diagnoses Not on filedocumented in this encounter Care Teams Field Care Coordinator Relationship Specialty Start Date End Date Merlene Hyde MD [address] [place] [address] [place] Garcia [address] PCP - General 03/14/17 09/26/22 documented as of this encounter
--- OUTSIDE RECORDS SUMMARY | 2024-11-02 17:15 | XMS_ITS | Encounter Summary ---
Author Organization [facility] Address [address] [place] [address] Phone Care Team Providers Care Venetian Blind Machine Operator Name Role Phone Merlene Hyde MD Primary Care Provider Encounter Details Date Type Department Care Team (Late st Contact Info) Description 02/06/2018 Patient Outreach [facility] 150 [place] [address] Merlene Hyde MD 150 [place] [address] Social History Tobacco Use Types Packs/Day Years [...] on filedocumented in this encounter Care Teams Venetian Blind Machine Operator Relationship Specialty Start Date End Date Merlene Hyde MD 150 [place] [address] PCP - General 03/14/17 09/26/22 documented as of this encounter
--- OUTSIDE RECORDS SUMMARY | 2024-11-02 17:15 | XMS_ITS | Encounter Summary ---
Author Organization [facility] Address [address] [place] [address] Phone Care Team Providers Care Medical Service Representative Name Role Phone Merlene Hyde MD Primary Care Provider [phone] Encounter Details Date Type Department Care Team (Late st Contact Info) Description 05/22/2018 Patient Outreach [facility] [place] 150 [place] [address] Merlene Hyde MD 150 [place] [address] Social History Tobacco Use Types Packs/Day Years [...] Progress Notes * Merlene Hyde MD - 05/22/2018 2:25 PM EDT So frustrating! Thanks for trying to follow through documented in this encounter Plan of Treatment Not on file documented as of this encounter Visit Diagnoses Not on filedocumented in this encounter Care Teams Medical Service Representative Relationship Specialty Start Date End Date Merlene Hyde MD 150 [facility] [place] [address] PCP - General 03/14/17 09/26/22 documented as of this encounter
--- OUTSIDE RECORDS SUMMARY | 2024-11-02 17:15 | XMS_ITS | Encounter Summary ---
Author Organization [facility] Address [address] [place] [address] Phone Care Team Providers Care Nutrition Services Assistant Name Role Phone Merlene Hyde MD Primary Care Provider [phone] Reason for Visit * Reason Onset Date Comments Missed appointments 09/22/2018 Encounter Details Date Type Department Care Team (Late st Contact Info) Description 09/22/2018 Patient Outreach [facility] [place] 150 [place] [address] Merlene Hyde MD 150 [place] [address] Missed appointments Social History Tobacco Use Types Packs/Day Years [...] Progress Notes * Merlene Hyde MD - 09/22/2018 12:39 PM EST Okay; thanks documented in this encounter Plan of Treatment Not on file documented as of this encounter Visit Diagnoses Not on filedocumented in this encounter Care Teams Nutrition Services Assistant Relationship Specialty Start Date End Date Merlene Hyde MD [address] [place] [address] [place] Garcia [address] PCP - General 03/14/17 09/26/22 documented as of this encounter
--- OUTSIDE RECORDS SUMMARY | 2024-11-02 17:15 | XMS_ITS | Encounter Summary ---
Author Organization [facility] Address [address] [place] [address] Phone Care Team Providers Care Arc Welder Apprentice Name Role Phone Merlene Hyde MD Primary Care Provider [phone] Encounter Details Date Type Department Care Team (Late st Contact Info) Description 04/23/2018 Patient Outreach [facility] [place] 150 [place] [address] Merlene Hyde MD 150 [place] [address] Social History Tobacco Use Types Packs/Day Years [...] Progress Notes * Merlene Hyde MD - 04/23/2018 8:48 AM EDT Noted; thank you documented in this encounter Plan of Treatment Not on file documented as of this encounter Visit Diagnoses Not on filedocumented in this encounter Care Teams Arc Welder Apprentice Relationship Specialty Start Date End Date Merlene Hyde MD 150 [place] [address] PCP - General 03/14/17 09/26/22 documented as of this encounter
--- OUTSIDE RECORDS SUMMARY | 2024-11-02 17:15 | XMS_ITS | Encounter Summary ---
Author Organization [facility] Address [address] [place] [address] Phone Care Team Providers Care Histology Tech Name Role Phone Merlene Hyde MD Primary Care Provider [phone] Encounter Details Date Type Department Care Team (Late st Contact Info) Description 03/02/2018 Patient Outreach [facility] 150 [place] [address] Merlene Hyde MD 150 [place] [address] Social History Tobacco Use Types Packs/Day Years [...] on filedocumented in this encounter Care Teams Histology Tech Relationship Specialty Start Date End Date Merlene Hyde MD 150 [place] [address] PCP - General 03/14/17 09/26/22 documented as of this encounter
--- OUTSIDE RECORDS SUMMARY | 2024-11-02 17:15 | XMS_ITS | Encounter Summary ---
Author Organization [facility] Address [address] [place] [address] Phone Care Team Providers Care Infection Control Nurse Name Role Phone Merlene Hyde MD Primary Care Provider [phone] Encounter Details Date Type Department Care Team (Late st Contact Info) Description 02/15/2014 Documentation [facility] [place] Family Medicine [address] [place] [address] Family Medicine, Physician [address] [place] [address] Social History Tobacco Use Types Packs/Day Years [...] on filedocumented in this encounter Care Teams Infection Control Nurse Relationship Specialty Start Date End Date Merlene Hyde MD [address] [place] [address] [place] [address] PCP - General 03/14/17 09/26/22 documented as of this encounter
--- OUTSIDE RECORDS SUMMARY | 2024-11-02 17:15 | XMS_ITS | Encounter Summary ---
Author Organization [facility] Address [address] [place] [address] Phone Care Team Providers Care Automotive Teacher Name Role Phone Merlene Hyde MD Primary Care Provider [phone] Encounter Details Date Type Department Care Team (Late st Contact Info) Description 03/11/2018 Patient Outreach [facility] [place] 150 [place] [address] Merlene Hyde MD 150 [place] [address] Social History Tobacco Use Types Packs/Day Years [...] Progress Notes * Merlene Hyde MD - 03/11/2018 8:52 AM EDT Great; thank you documented in this encounter Plan of Treatment Not on file documented as of this encounter Visit Diagnoses Not on filedocumented in this encounter Care Teams Automotive Teacher Relationship Specialty Start Date End Date Merlene Hyde MD 150 [place] [address] PCP - General 03/14/17 09/26/22 documented as of this encounter
--- OUTSIDE RECORDS SUMMARY | 2024-11-02 17:15 | XMS_ITS | Encounter Summary ---
Author Organization [facility] Address [address] [place] [address] Phone Care Team Providers Care Presiding Judge Name Role Phone Merlene Hyde MD Primary Care Provider [phone] Encounter Details Date Type Department Care Team (Late st Contact Info) Description 04/14/2018 Patient Outreach [facility] 150 [place] [address] Merlene Hyde MD 150 [place] [address] Social History Tobacco Use Types Packs/Day Years [...] on filedocumented in this encounter Care Teams Presiding Judge Relationship Specialty Start Date End Date Merlene Hyde MD 150 [place] [address] PCP - General 03/14/17 09/26/22 documented as of this encounter
--- OUTSIDE RECORDS SUMMARY | 2024-11-02 17:15 | XMS_ITS | Encounter Summary ---
Author Organization [facility] Address [address] [place] [address] Phone Care Team Providers Care Sales Administration Specialist Name Role Phone Merlene Hyde MD Primary Care Provider [phone] Encounter Details Date Type Department Care Team (Late st Contact Info) Description 05/07/2018 Patient Outreach [facility] 150 [place] [address] Merlene Hyde MD 150 [place] [address] Social History Tobacco Use Types Packs/Day Years [...] on filedocumented in this encounter Care Teams Sales Administration Specialist Relationship Specialty Start Date End Date Merlene Hyde MD 150 [place] [address] PCP - General 03/14/17 09/26/22 documented as of this encounter
--- OUTSIDE RECORDS SUMMARY | 2024-11-02 17:15 | XMS_ITS | Encounter Summary ---
Author Organization [facility] Address [address] [place] [address] Phone Care Team Providers Care Fire Alarm Repairer Name Role Phone Merlene Hyde MD Primary Care Provider Encounter Details Date Type Department Care Team (Late st Contact Info) Description 02/18/2018 Patient Outreach [facility] [place] 150 [place] [address] Merlene Hyde MD 150 [place] [address] Social History Tobacco Use Types Packs/Day Years Used Date Smoking Tobacco: Never Comments:Never smoker Sex and Gender Information Value Date Recorded Sex Assigned at Not on file Legal Sex Male 4:57 PM EDT Gender Identity Not on file Sexual Orientation Not on file documented as of this encounter Progress Notes * Merlene Hyde MD - 02/18/2018 1:29 PM EDT Wow...so disheartening again to hear this; thanks for reaching out to Michelle as well; hopefully he'll come to our appointment documented in this encounter Plan of Treatment Not on file documented as of this encounter Visit Diagnoses Not on filedocumented in this encounter Care Teams Fire Alarm Repairer Relationship Specialty Start Date End Date Merlene Hyde MD [address] [place] [address] CARIE Garcia [address] PCP - General 03/14/17 09/26/22 documented as of this encounter
--- OUTSIDE RECORDS SUMMARY | 2024-11-02 17:15 | XMS_ITS | Encounter Summary ---
Author Organization [facility] Address [address] [place] [address] Phone Care Team Providers Care Scaffold Worker Name Role Phone Merlene Hyde MD Primary Care Provider [phone] Encounter Details Date Type Department Care Team (Late st Contact Info) Description 12/31/2017 Patient Outreach [facility] [place] 150 [place] [address] Merlene Hyde MD 150 [place], [place] [phone] Social History Tobacco Use Types Packs/Day Years Used Date Smoking Tobacco: Never Comments:Never smoker Sex and Gender Information Value Date Recorded Sex Assigned at Not on file Legal Sex Male 4:57 PM EDT Gender Identity Not on file Sexual Orientation Not on file documented as of this encounter Progress Notes * Merlene Hyde MD - 12/31/2017 8:38 AM EDT Thanks for your note--that's very unfortunate and so sad to hear documented in this encounter Plan of Treatment Not on file documented as of this encounter Visit Diagnoses Not on filedocumented in this encounter Care Teams Scaffold Worker Relationship Specialty Start Date End Date Merlene Hyde MD 150 [place] [address] PCP - General 03/14/17 09/26/22 documented as of this encounter
--- OUTSIDE RECORDS SUMMARY | 2024-11-02 17:15 | XMS_ITS | Encounter Summary ---
Author Organization [facility] Address [address] [place] [address] Phone Care Team Providers Care Trade Show Specialist Name Role Phone Merlene Hyde MD Primary Care Provider [phone] Encounter Details Date Type Department Care Team (Late st Contact Info) Description 10/13/2013 Documentation [facility] [place] [address] [place] [address] Family Medicine, Physician [address] [place] [address] Social History Tobacco Use Types Packs/Day Years [...] on filedocumented in this encounter Care Teams Trade Show Specialist Relationship Specialty Start Date End Date Merlene Hyde MD [address] [place] [address] [place] [address] PCP - General 03/14/17 09/26/22 documented as of this encounter
--- OUTSIDE RECORDS SUMMARY | 2024-11-02 17:15 | XMS_ITS | Encounter Summary ---
Author Organization [facility] Address [address] [place] [address] Phone Care Team Providers Care Primary Grade Teacher Name Role Phone Merlene Hyde MD Primary Care Provider [phone] Encounter Details Date Type Department Care Team (Late st Contact Info) Description 05/25/2018 Patient Outreach [facility] [place] 150 [place] [address] Merlene Hyde MD 150 [place] [address] Social History Tobacco Use Types Packs/Day Years [...] Progress Notes * Merlene Hyde MD - 05/25/2018 12:54 PM EDT Wow--so upsetting to hear--thanks for your follow through documented in this encounter Plan of Treatment Not on file documented as of this encounter Visit Diagnoses Not on filedocumented in this encounter Care Teams Primary Grade Teacher Relationship Specialty Start Date End Date Merlene Hyde MD [address] [place] [address] CARIE Garcia [address] PCP - General 03/14/17 09/26/22 documented as of this encounter
--- OUTSIDE RECORDS SUMMARY | 2024-11-02 17:15 | XMS_ITS | Encounter Summary ---
Author Organization [facility] Address [address] [place] [address] Phone Care Team Providers Care Cement Worker Name Role Phone Merlene Hyde MD Primary Care Provider [phone] Reason for Visit * Reason Onset Date Comments Follow-up 10/02/2018 Encounter Details Date Type Department Care Team (Late st Contact Info) Description 10/02/2018 Patient Outreach [facility] [place] 150 [place] [address] Merlene Hyde MD [address] [place] [address] Follow-up Social History Tobacco Use Types Packs/Day [...] Progress Notes * Merlene Hyde MD - 10/02/2018 11:29 AM EST Noted; thank you documented in this encounter Plan of Treatment Not on file documented as of this encounter Visit Diagnoses Not on filedocumented in this encounter Care Teams Cement Worker Relationship Specialty Start Date End Date Merlene Hyde MD [address] [place] [address] CARIE Garcia [address] PCP - General 03/14/17 09/26/22 documented as of this encounter
--- OUTSIDE RECORDS SUMMARY | 2024-11-02 17:15 | XMS_ITS | Encounter Summary ---
Author Organization [facility] Address [address] [place] [address] Phone Care Team Providers Care Supervisor Salvage Name Role Phone Merlene Hyde MD Primary Care Provider [phone] Encounter Details Date Type Department Care Team (Late st Contact Info) Description 01/02/2018 Patient Outreach [facility] 150 [place] [address] Merlene Hyde MD 150 [place] [address] Social History Tobacco Use Types Packs/Day Years [...] on filedocumented in this encounter Care Teams Supervisor Salvage Relationship Specialty Start Date End Date Merlene Hyde MD 150 [place] [address] PCP - General 03/14/17 09/26/22 documented as of this encounter
--- OUTSIDE RECORDS SUMMARY | 2024-11-02 17:15 | XMS_ITS | Encounter Summary ---
Author Organization [facility] Address [address] [place] [address] Phone Care Team Providers Care Wire Hanger Name Role Phone Merlene Hyde MD Primary Care Provider [phone] Encounter Details Date Type Department Care Team (Late st Contact Info) Description 05/26/[address] [facility] [place] Family Medicine [address] [place] [address] Family Medicine, Physician [address] [place] [address] Social History Tobacco Use Types Packs/Day Years [...] on filedocumented in this encounter Care Teams Wire Hanger Relationship Specialty Start Date End Date Merlene Hyde MD [address] [place] [address] [place] [address] PCP - General 03/14/17 09/26/22 documented as of this encounter
--- OUTSIDE RECORDS SUMMARY | 2024-11-02 17:15 | XMS_ITS | Encounter Summary ---
Author Organization [facility] Address [address] [place] [address] Phone Care Team Providers Care Loom Overhauler Name Role Phone Merlene Hyde MD Primary Care Provider [phone] Encounter Details Date Type Department Care Team (Late st Contact Info) Description 05/24/2013 Documentation [facility] [place] [address] [place] [address] Family Medicine, Physician [address] [place] [address] Social History Tobacco Use Types Packs/Day Years [...] on filedocumented in this encounter Care Teams Loom Overhauler Relationship Specialty Start Date End Date Merlene Hyde MD [address] [place] [address] [place] [address] PCP - General 03/14/17 09/26/22 documented as of this encounter
--- OUTSIDE RECORDS SUMMARY | 2024-11-02 17:15 | XMS_ITS | Encounter Summary ---
Author Organization [facility] Address [address] [place] [address] Phone Care Team Providers Care Fudge Candy Maker Name Role Phone Merlene Hyde MD Primary Care Provider [phone] Encounter Details Date Type Department Care Team (Late st Contact Info) Description 03/18/2018 Patient Outreach [facility] [place] 150 [place] [address] Merlene Hyde MD 150 [place] [address] Social History Tobacco Use Types Packs/Day Years [...] Progress Notes * Merlene Hyde MD - 03/18/2018 2:15 PM EDT Thanks for following through documented in this encounter Plan of Treatment Not on file documented as of this encounter Visit Diagnoses Not on filedocumented in this encounter Care Teams Fudge Candy Maker Relationship Specialty Start Date End Date Merlene Hyde MD [address] [place] [address] PCP - General 03/14/17 09/26/22 documented as of this encounter
--- OUTSIDE RECORDS SUMMARY | 2024-11-02 17:15 | XMS_ITS | Encounter Summary ---
Author Organization [facility] Address [address] [place] [address] Phone Care Team Providers Care Nitroglycerin Separator Operator Name Role Phone Merlene Hyde MD Primary Care Provider [phone] Reason for Visit * Reason Onset Date Comments MRI and Xray 09/24/2018 Encounter Details Date Type Department Care Team (Late st Contact Info) Description 09/24/2018 Patient Outreach [facility] [place] 150 [place] [address] Merlene Hyde MD 150 [place] [address] MRI and Xray Social History Tobacco Use Types Packs/Day Years [...] Progress Notes * Merlene Hyde MD - 09/24/2018 11:59 PM EST Okay; thanks documented in this encounter Plan of Treatment Not on file documented as of this encounter Visit Diagnoses Not on filedocumented in this encounter Care Teams Nitroglycerin Separator Operator Relationship Specialty Start Date End Date Merlene Hyde MD 150 [facility] CARIE Garcia [address] PCP - General 03/14/17 09/26/22 documented as of this encounter
--- OUTSIDE RECORDS SUMMARY | 2024-11-02 17:15 | XMS_ITS | Encounter Summary ---
Author Organization [facility] Address [address] [place] [address] Phone Care Team Providers Care Director Of Assessing Name Role Phone Merlene Hyde MD Primary Care Provider [phone] Encounter Details Date Type Department Care Team (Late st Contact Info) Description 03/03/2018 Patient Outreach [facility] [place] 150 [place] [address] Merlene Hyde MD 150 [place] [address] Social History Tobacco Use Types Packs/Day Years [...] Progress Notes * Merlene Hyde MD - 03/03/2018 11:16 AM EDT Thank you for your help; when you talk with aunt, can you remind her to make a follow up with me? He needs a longer period of time for this appointment so she's not going to be able to make it last minute I have no idea what the paperwork will look like; I don't usually verify the need for disability, so hopefully that's not what he needs If he wants disability reinstated, I believe he needs to go to the office of disabilities and put that request in documented in this encounter Plan of Treatment Not on file documented as of this encounter Visit Diagnoses Not on filedocumented in this encounter Care Teams Director Of Assessing Relationship Specialty Start Date End Date Merlene Hyde MD [address] [place] [address] CARIE Garcia [address] PCP - General 03/14/17 09/26/22 documented as of this encounter
--- OUTSIDE RECORDS SUMMARY | 2024-11-02 17:15 | XMS_ITS | Encounter Summary ---
Author Organization [facility] Address [address] [place] [address] Phone Care Team Providers Care Door To Door Lead Generation Name Role Phone Merlene Hyde MD Primary Care Provider [phone] Encounter Details Date Type Department Care Team (Late st Contact Info) Description 12/18/2017 Patient Outreach [facility] [place] 150 [place] [address] Merlene Hyde MD 150 [place], [place] [id number] Social History Tobacco Use Types Packs/Day Years Used Date Smoking Tobacco: Never Comments:Never smoker Sex and Gender Information Value Date Recorded Sex Assigned at Not on file Legal Sex Male 4:57 PM EDT Gender Identity Not on file Sexual Orientation Not on file documented as of this encounter Progress Notes * Merlene Hyde MD - 12/18/2017 2:43 PM EDT Thank you for your notes and appreciate the input on this very complex young man documented in this encounter Plan of Treatment Not on file documented as of this encounter Visit Diagnoses Not on filedocumented in this encounter Care Teams Door To Door Lead Generation Relationship Specialty Start Date End Date Merlene Hyde MD 150 [place], [place] [phone] PCP - General 03/14/17 09/26/22 documented as of this encounter
--- OUTSIDE RECORDS SUMMARY | 2024-11-02 17:15 | XMS_ITS | Encounter Summary ---
Author Organization [facility] Address [address] [place] [address] Phone Care Team Providers Care Accounts Receivable Executive Name Role Phone Merlene Hyde MD Primary Care Provider [phone] Reason for Visit * Reason Onset Date Comments Case closed 12/02/2018 Encounter Details Date Type Department Care Team (Late st Contact Info) Description 12/02/2018 Patient Outreach [facility] [place] 150 [place] [address] Merlene Hyde MD 150 [place] [address] Case closed Social History Tobacco Use Types Packs/Day Years [...] Progress Notes * Merlene Hyde MD - 12/02/2018 10:55 AM EDT Tried calling 2 numbers on file and neither one was working documented in this encounter Plan of Treatment Not on file documented as of this encounter Visit Diagnoses Not on filedocumented in this encounter Care Teams Accounts Receivable Executive Relationship Specialty Start Date End Date Merlene Hyde MD [address] [place] [address] CARIE Garcia [address] PCP - General 03/14/17 09/26/22 documented as of this encounter
--- OUTSIDE RECORDS SUMMARY | 2024-11-02 17:15 | XMS_ITS | Encounter Summary ---
Author Organization [facility] Address [address] [place] [address] Phone Care Team Providers Care Marshmallow Machine Worker Name Role Phone Merlene Hyde MD Primary Care Provider [phone] Encounter Details Date Type Department Care Team (Late st Contact Info) Description 07/26/2015 Documentation [facility] [place] Family Medicine [address] [place] [address] Family Medicine, Physician [address] [place] [address] Social History Tobacco Use Types Packs/Day Years [...] on filedocumented in this encounter Care Teams Marshmallow Machine Worker Relationship Specialty Start Date End Date Merlene Hyde MD [address] [place] [address] [place] [address] PCP - General 03/14/17 09/26/22 documented as of this encounter
--- OUTSIDE RECORDS SUMMARY | 2024-11-02 17:15 | XMS_ITS | Encounter Summary ---
Author Organization [facility] Address [address] [place] [address] Phone Care Team Providers Care Disaster Or Damage Control Specialist Name Role Phone Merlene Hyde MD Primary Care Provider [phone] Encounter Details Date Type Department Care Team (Late st Contact Info) Description 05/14/2018 Patient Outreach [facility] [place] 150 [place] [address] Merlene Hyde MD [address] [place] [address] Social History Tobacco Use Types Packs/Day Years [...] Progress Notes * Merlene Hyde MD - 05/14/2018 2:02 PM EDT Thanks for following up documented in this encounter Plan of Treatment Not on file documented as of this encounter Visit Diagnoses Not on filedocumented in this encounter Care Teams Disaster Or Damage Control Specialist Relationship Specialty Start Date End Date Merlene Hyde MD [address] [place] [address] PCP - General 03/14/17 09/26/22 documented as of this encounter
--- OUTSIDE RECORDS SUMMARY | 2024-11-02 17:15 | XMS_ITS | Clinical Summary ---
Author Organization [facility] Address [address] [place] [address] Phone Care Team Providers Care Curriculum Advisory Teacher Name Role Phone Unavailable Primary Care Provider Unavailabl e Allergies Active Allergy Reactions Criticality Noted Date Comments Codeine Other reaction(s): Medications No known medications Active Problems Problem Noted Date Diagnosed Date Self-injurious behavior 08/19/2018 Assessment & Plan (08/19/2018 9:07 PM EST): Denies SI but clearly having difficulties; connected him with therapist here from [facility] who will make appt with him and who will help facilitate psychiatric referral; advised if makes appt with therapist and keeps it, then could make f/u with me and we can discuss starting anti-depressant medicine while await psychiatric referral (will need step up referral program initiated) Generalized anxiety disorder 03/04/2018 Assessment & Plan (03/04/2018 2:17 PM EDT): Reviewed that I don't prescribe medications like ativan, but only consider daily preventive treatment like SSRI's However he needs to discontinue marijuana use prior to starting medication and I need to know that he's serious/committed to reconnecting with his providers--me and his specialists because I need to see him on a regular basis in order to prescribe anti-anxiety medication I stressed the need to see a therapist; he met with Ayanna from [facility] today who will make a referral for [facility] --intensive care coordination and hopefully for a 3d animator as well S/P AKA (above knee amputation), 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 Assessment & Plan (03/04/2018 2:18 PM EDT): Needs new supports/crutches given he has had left hemipelvectomy; advised appointment with ortho and likely OT Counseling and coordination of care 12/30/2017 Assessment & Plan (03/04/2018 2:19 PM EDT): sanitation worker Jeny Atkins present for exam and discussed with Ervin and his aunt how she can help him get re-connected to specialists and with us and will help him make appointments to get him back on track Colostomy in place 03/14/2016 Assessment & Plan (03/04/2018 2:13 PM EDT): Refer to GI for evaluation/management ADHD (attention deficit hyperactivity disorder) 07/11/2014 Assessment & Plan (08/19/2018 9:09 PM EST): Discussed neuropsych testing with Ervin--he is in agreement to have it done and will sign release so that Jeny Atkins can get copy of IEP from his old high school to the neuropsych eval 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 Assessment & Plan (08/19/2018 9:08 PM EST): In process of getting back hooked up with [facility]--has gone once; will be having MRI and multiple other appointments; see CC message from Jeny Atkins about all of the appointments she's setting up for him Assessment & Plan (03/04/2018 2:14 PM EDT): Needs to follow up with [facility] because they do surveillance MRI's on a regular basis looking for cancers since he is at high risk for new cancers Long discussion about decreasing/stopping all smoking-tobacco/MJ/etc-both because so poor for his health/mind but also given his high chance of recurrent cancer Overactive bladder 07/11/2014 Assessment & Plan (03/04/2018 2:18 PM EDT): Follow up with urology Depressive disorder 01/21/2012 Assessment & Plan (09/10/2018 4:56 PM EST): Strongly encouraged to make appt with counselor; reviewed reasons why and how they could be helpful; but advised to make f/u with me in 2 weeks and will consider starting SSRI at that point if he is willing Assessment & Plan (03/04/2018 2:20 PM EDT): Abnormal screens; certainly concerning signs of self-harm/cutting/etc; denies present SI; strongly encouraged therapist to work with him; will consider medication at follow up appointment 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 Resolved Problems Problem Noted Date Diagnosed Date Resolved Date Encounter for counseling for care management of patient with chronic conditions and complex health needs using nurse-based model 09/30/2014 03/04/2018 Immunizations Immunization Administration Dates Next Due DTaP 5 08/27/2002, 9,1998,07/20,1998 H1N1 05/22/2009 HPV, Quadrivalent 09/24/2013,05/20/2013,02/13/20 13 Hep A, ped/adol 03/09/2015,02/12/2013 Hep B, ped/adol 1998,1998,1998 Hib (PRP-T) 07/09/1999, 9,1998,05/05 IPV 08/27/2002, 9,1998,05/05 Influenza Split 05/20/2013,06/16/2012,05/21/2010 Influenza, injectable, quadrivalent 06/10/2015 Influenza, injectable, quadr ivalent, preservative free 08/14/2018 Influenza, injectable, trivalent 05/22/2009,12/2007,05/14/2007 MMR 04/26/2004,02/23/1999 Meningococcal Conj (Menactra) MCV4P 03/09/2015,0 11/07/2009 OPV 08/27/2002 Pneumococcal Polysaccharide 07/08/2008 Tdap 11/07/2009 Varicella 01/09/2009,02/23/1999 Social History Tobacco Use Types Packs/Day Years Used Date Smoking Tobacco: Every Day Comments:Never smoker Alcohol Use Standard Drinks/Week Comments Yes 0 (1 standard drink = 0.6 oz pur e alcohol) Sex and Gender Information Value Date Recorded Sex Assigned at Not on file Legal Sex Male 4:57 PM EDT Gender Identity Not on file Sexual Orientation Not on file Last Filed Vital Signs Vital Sign Reading Time Taken Comments Blood Pressure 120/70 09/10/2018 2:34 PM EST Pulse 89 09/10/2018 2:34 PM EST Temperature 36.9 ??C (98.4 ??F) 09/10/2018 2:34 PM ES T Respiratory Rate - - Oxygen Saturation - - Inhaled Oxygen Concentration - - Weight 38.2 kg (84 lb 3.2 oz) 09/10/2018 2:34 PM EST Height 163.8 cm (5' 4.5 ) 09/10/2018 2:34 PM EST Body Mass Index 14.23 09/10/2018 2:34 PM EST Plan of Treatment Health Maintenance Due Date Last Done Comments DTaP,Tdap,and Td Vaccines (7 - Td or Tdap) 11/08/2019 11/07/2009, 08/27/2002, 07/12/1999, Additional history exists Influenza Vaccines (#1) 2024 08/14/19 19, 06/10/2015, 05/20/2013, Additional history exists COVID-19 Vaccine ( season) 2024 Hepatitis B Vaccines Completed 1998, 1998, 1998 HIB Vaccines Completed 07/09/1999, 09/1998, 1998, Additional history exists IPV Vaccines Completed 08/27/2002, 08/05, 02/23/1999, Additional history exists MMR Vaccines Completed 04/26/2004, 02/23/1999 Pneumococcal Vaccine Aged Out 07/08/2008 No long er eligible based on patient's age to complete this topic Varicella Vaccines Completed 01/09/2009, 02/23/1999 HPV Vaccines Completed 09/24/2013, 05/04, 02/12/2013 Hepatitis A Vaccines Completed 03/09/2015, 02/13/20 13 Meningococcal Vaccine Completed 03/09/2015, 010 Men B Vaccine Aged Out No longer elig [place] based on patient's age to complete this topic Insurance [facility] NON PCC
--- OUTSIDE RECORDS SUMMARY | 2024-11-02 17:15 | XMS_ITS | Encounter Summary ---
Author Organization [facility] Address [address] [place] [address] Phone Care Team Providers Care Die Cutter Apprentice Name Role Phone Merlene Hyde MD Primary Care Provider Encounter Details Date Type Department Care Team (Late st Contact Info) Description 11/22/2015 Documentation [facility] [place] Family Medicine [address] [place] [address] Family Medicine, Physician [address] [place] [address] Social History Tobacco Use Types Packs/Day Years [...] on filedocumented in this encounter Care Teams Die Cutter Apprentice Relationship Specialty Start Date End Date Merlene Hyde MD [address] [place] [address] [place] [address] PCP - General 03/14/17 09/26/22 documented as of this encounter
--- OUTSIDE RECORDS SUMMARY | 2024-11-02 17:15 | XMS_ITS | Encounter Summary ---
Author Organization [facility] Address [address] [place] [address] Phone Care Team Providers Care Reactor Fueling Supervisor Name Role Phone Merlene Hyde MD Primary Care Provider [phone] Encounter Details Date Type Department Care Team (Late st Contact Info) Description 11/18/2015 Documentation [facility] [place] Family Medicine [address] [place] [address] Family Medicine, Physician [address] [place] [address] Social History Tobacco Use Types Packs/Day Years [...] on filedocumented in this encounter Care Teams Reactor Fueling Supervisor Relationship Specialty Start Date End Date Merlene Hyde MD [address] [place] [address] [place] [address] PCP - General 03/14/17 09/26/22 documented as of this encounter
--- OUTSIDE RECORDS SUMMARY | 2024-11-02 17:15 | XMS_ITS | Encounter Summary ---
Author Organization [facility] Address [address] [place] [address] Phone Care Team Providers Care Compact Assembler Name Role Phone Merlene Hyde MD Primary Care Provider [phone] Encounter Details Date Type Department Care Team (Late st Contact Info) Description 04/20/2018 Patient Outreach [facility] [place] [address] [place] [address] Merlene Hyde MD 150 [place] [address] Social History Tobacco Use Types Packs/Day Years [...] Progress Notes * Merlene Hyde MD - 04/20/2018 1:59 PM EDT Thank you! documented in this encounter Plan of Treatment Not on file documented as of this encounter Visit Diagnoses Not on filedocumented in this encounter Care Teams Compact Assembler Relationship Specialty Start Date End Date Merlene Hyde MD 150 [place] [address] PCP - General 03/14/17 09/26/22 documented as of this encounter
--- OUTSIDE RECORDS SUMMARY | 2024-11-02 17:15 | XMS_ITS | Encounter Summary ---
Author Organization [facility] Address [address] [place] [address] Phone Care Team Providers Care Tea Tree Farmer Name Role Phone Merlene Hyde MD Primary Care Provider [phone] Encounter Details Date Type Department Care Team (Late st Contact Info) Description 04/23/2018 Patient Outreach [facility] [place] 150 [place] [address] Merlene Hyde MD 150 [place], [place] [phone] Social History Tobacco Use Types Packs/Day Years [...] Notes * Merlene Hyde MD - 04/23/2018 11:59 PM EDT thanks documented in this encounter Plan of Treatment Not on file documented as of this encounter Visit Diagnoses Not on filedocumented in this encounter Care Teams Tea Tree Farmer Relationship Specialty Start Date End Date Merlene Hyde MD 150 [place] [address] PCP - General 03/14/17 09/26/22 documented as of this encounter
--- OUTSIDE RECORDS SUMMARY | 2024-11-02 17:15 | XMS_ITS | Encounter Summary ---
Author Organization [facility] Address [address] [place] [address] Phone Care Team Providers Care Sales And Marketing Vice President Name Role Phone Merlene Hyde MD Primary Care Provider [phone] Reason for Visit * Reason Onset Date Comments Services for pt 09/28/2018 Encounter Details Date Type Department Care Team (Late st Contact Info) Description 09/28/2018 Patient Outreach [facility] 150 [place] [address] Merlene Hyde MD 150 [place] [address] Services for pt Social History Tobacco Use Types Packs/Day Years [...] filedocumented in this encounter Care Teams Sales And Marketing Vice President Relationship Specialty Start Date End Date Merlene Hyde MD 150 [place] [address] PCP - General 03/14/17 09/26/22 documented as of this encounter
--- OUTSIDE RECORDS SUMMARY | 2024-11-02 17:15 | XMS_ITS | Encounter Summary ---
Author Organization [facility] Address [address] [place] [address] Phone Care Team Providers Care Childcare Aide Name Role Phone Merlene Hyde MD Primary Care Provider [phone] Encounter Details Date Type Department Care Team (Late st Contact Info) Description 05/27/2018 Patient Outreach [facility] 150 [place] [address] Merlene Hyde MD 150 [place] [address] Social History Tobacco Use Types Packs/Day Years [...] on filedocumented in this encounter Care Teams Childcare Aide Relationship Specialty Start Date End Date Merlene Hyde MD 150 [place] [address] PCP - General 03/14/17 09/26/22 documented as of this encounter
--- OUTSIDE RECORDS SUMMARY | 2024-11-02 17:16 | XMS_ITS | Encounter Summary ---
Author Organization [facility] Address [address] [place] [address] Phone Care Team Providers Care Tester Electronic Scale Name Role Phone Merlene Hyde MD Primary Care Provider [phone] Encounter Details Date Type Department Care Team (Late st Contact Info) Description 07/16/2018 Patient Outreach [facility] 150 [place] [address] Merlene Hyde MD 150 [place] [address] Social History Tobacco Use Types Packs/Day Years [...] on filedocumented in this encounter Care Teams Tester Electronic Scale Relationship Specialty Start Date End Date Merlene Hyde MD 150 [place] [address] PCP - General 03/14/17 09/26/22 documented as of this encounter
--- OUTSIDE RECORDS SUMMARY | 2024-11-02 17:16 | XMS_ITS | Encounter Summary ---
Author Organization [facility] Address [address] [place] [address] Phone Care Team Providers Care Cooperative Extension Agent Name Role Phone Merlene Hyde MD Primary Care Provider [phone] Reason for Visit * Reason Onset Date Comments Unable to make contact with pt 11/10/2018 Encounter Details Date Type Department Care Team (Late st Contact Info) Description 11/10/2018 Patient Outreach [facility] [place] 150 [place] [address] Merlene Hyde MD 150 [place] [address] Unable to make contact with pt Social History Tobacco Use Types Packs/Day [...] Progress Notes * Merlene Hyde MD - 11/10/2018 1:07 PM EDT Thanks for the update documented in this encounter Plan of Treatment Not on file documented as of this encounter Visit Diagnoses Not on filedocumented in this encounter Care Teams Cooperative Extension Agent Relationship Specialty Start Date End Date Merlene Hyde MD [address] [place] [address] CAR[place] Garcia [address] PCP - General 03/14/17 09/26/22 documented as of this encounter
--- OUTSIDE RECORDS SUMMARY | 2024-11-02 17:16 | XMS_ITS | Encounter Summary ---
Author Organization [facility] Address [address] [place] [address] Phone Care Team Providers Care Ramp Lead Name Role Phone Merlene Hyde MD Primary Care Provider [phone] Reason for Visit * Reason Onset Date Comments Remind of appointment 11/25/2018 Encounter Details Date Type Department Care Team (Late st Contact Info) Description 11/25/2018 Patient Outreach [facility] [place] 150 [place] [address] Merlene Hyde MD [address] [place] [address] Remind of appointment Social History Tobacco Use Types Packs/Day [...] Progress Notes * Merlene Hyde MD - 11/25/2018 1:45 PM EDT noted documented in this encounter Plan of Treatment Not on file documented as of this encounter Visit Diagnoses Not on filedocumented in this encounter Care Teams Ramp Lead Relationship Specialty Start Date End Date Merlene Hyde MD [address] [facility] CAR[place] Garcia [address] PCP - General 03/14/17 09/26/22 documented as of this encounter
--- OUTSIDE RECORDS SUMMARY | 2024-11-02 17:16 | XMS_ITS | Encounter Summary ---
Author Organization [facility] Address [address] [place] [address] Phone Care Team Providers Care General Education Instructor Name Role Phone Merlene Hyde MD Primary Care Provider [phone] Reason for Visit * Reason Onset Date Comments Meet at appointment 09/09/2018 Encounter Details Date Type Department Care Team (Late st Contact Info) Description 09/09/2018 Patient Outreach [facility] [place] 150 [place] [address] Merlene Hyde MD 150 [place] [address] Meet at appointment Social History Tobacco Use Types Packs/Day [...] Notes * Merlene Hyde MD - 09/09/2018 1:53 PM EST Noted; thank you; and yes I would think he should see surgeon for colostomy care as well as GI; will assess lump when I see him; but will likely need ultrasound documented in this encounter Plan of Treatment Not on file documented as of this encounter Visit Diagnoses Not on filedocumented in this encounter Care Teams General Education Instructor Relationship Specialty Start Date End Date Merlene Hyde MD [address] [place] [address] CAR[place] Garcia [address] PCP - General 03/14/17 09/26/22 documented as of this encounter
--- OUTSIDE RECORDS SUMMARY | 2024-11-02 17:16 | XMS_ITS | Encounter Summary ---
Author Organization [facility] Address [address] [place] [address] Phone Care Team Providers Care Compact Assembler Name Role Phone Merlene Hyde MD Primary Care Provider [phone] Reason for Visit * Reason Onset Date Comments neuropsych testing 09/08/2018 Encounter Details Date Type Department Care Team (Late st Contact Info) Description 09/08/2018 Patient Outreach [facility] [place] 150 [place] [address] Merlene Hyde MD 150 [place] [address] neuropsych testing Social History Tobacco Use Types Packs/Day Years [...] Progress Notes * Merlene Hyde MD - 09/08/2018 1:50 PM EST Thank you documented in this encounter Plan of Treatment Not on file documented as of this encounter Visit Diagnoses Not on filedocumented in this encounter Care Teams Compact Assembler Relationship Specialty Start Date End Date Merlene Hyde MD [address] [place] [address] CAR[place] Garcia [address] PCP - General 03/14/17 09/26/22 documented as of this encounter
--- OUTSIDE RECORDS SUMMARY | 2024-11-02 17:16 | XMS_ITS | Encounter Summary ---
Author Organization [facility] Address [address] [place] [address] Phone Care Team Providers Care Yard Loader Operator Name Role Phone Merlene Hyde MD Primary Care Provider [phone] Encounter Details Date Type Department Care Team (Late st Contact Info) Description 07/20/2018 Patient Outreach [facility] 150 [place] [address] Merlene Hyde MD 150 [place] [address] Social History Tobacco Use Types Packs/Day Years [...] on filedocumented in this encounter Care Teams Yard Loader Operator Relationship Specialty Start Date End Date Merlene Hyde MD 150 [place] [address] PCP - General 03/14/17 09/26/22 documented as of this encounter
--- OUTSIDE RECORDS SUMMARY | 2024-11-02 17:16 | XMS_ITS | Encounter Summary ---
Author Organization [facility] Address [address] [place] [address] Phone Care Team Providers Care Ballistics Expert Forensic Name Role Phone Merlene Hyde MD Primary Care Provider [phone] Encounter Details Date Type Department Care Team (Late st Contact Info) Description 05/01/2011 Documentation [facility] [place] [address] [place] [address] Family Medicine, Physician [address] [place] [address] Social History Tobacco Use Types Packs/Day Years [...] on filedocumented in this encounter Care Teams Ballistics Expert Forensic Relationship Specialty Start Date End Date Merlene Hyde MD [address] [place] [address] [place] [address] PCP - General 03/14/17 09/26/22 documented as of this encounter
--- OUTSIDE RECORDS SUMMARY | 2024-11-02 17:16 | XMS_ITS | Encounter Summary ---
Author Organization [facility] Address [address] [place] [address] Phone Care Team Providers Care Seam Stayer Name Role Phone Merlene Hyde MD Primary Care Provider [phone] Reason for Visit * Reason Onset Date Comments Remind of appointment 10/26/2018 Encounter Details Date Type Department Care Team (Late st Contact Info) Description 10/26/2018 Patient Outreach [facility] [place] 150 [place] [address] Merlene Hyde MD [address] [place] [address] Remind of appointment Social History Tobacco Use [...] Progress Notes * Merlene Hyde MD - 10/26/2018 1:10 PM EDT Thanks for the update documented in this encounter Plan of Treatment Not on file documented as of this encounter Visit Diagnoses Not on filedocumented in this encounter Care Teams Seam Stayer Relationship Specialty Start Date End Date Merlene Hyde MD 150 [facility] Er CAR[place] Garcia [address] PCP - General 03/14/17 09/26/22 documented as of this encounter
--- OUTSIDE RECORDS SUMMARY | 2024-11-02 17:16 | XMS_ITS | Encounter Summary ---
Author Organization [facility] Address [address] [place] [address] Phone Care Team Providers Care Service Dismantler Name Role Phone Merlene Hyde MD Primary Care Provider [phone] Reason for Visit * Reason Onset Date Comments cancel appointment 10/16/2018 Encounter Details Date Type Department Care Team (Late st Contact Info) Description 10/16/2018 Patient Outreach [facility] [place] 150 [place] [address] Merlene Hyde MD 150 [place] [address] cancel appointment Social History Tobacco Use Types Packs/Day [...] Progress Notes * Merlene Hyde MD - 10/16/2018 9:08 AM EDT Thank you documented in this encounter Plan of Treatment Not on file documented as of this encounter Visit Diagnoses Not on filedocumented in this encounter Care Teams Service Dismantler Relationship Specialty Start Date End Date Merlene Hyde MD [address] [place] [address] CAR[place] Garcia [address] PCP - General 03/14/17 09/26/22 documented as of this encounter
--- OUTSIDE RECORDS SUMMARY | 2024-11-02 17:16 | XMS_ITS | Encounter Summary ---
Author Organization [facility] Address [address] [place] [address] Phone Care Team Providers Care Power Switchboard Operator Name Role Phone Merlene Hyde MD Primary Care Provider Encounter Details Date Type Department Care Team (Late st Contact Info) Description 01/07/2017 Documentation [facility] [place] Family Medicine [address] [place] [address] Family Medicine, Physician [address] [place] [address] Social History Tobacco Use Types Packs/Day Years [...] on filedocumented in this encounter Care Teams Power Switchboard Operator Relationship Specialty Start Date End Date Merlene Hyde MD [address] [place] [address] [place] [address] PCP - General 03/14/17 09/26/22 documented as of this encounter
--- OUTSIDE RECORDS SUMMARY | 2024-11-02 17:16 | XMS_ITS | Encounter Summary ---
Author Organization [facility] Address [address] [place] [address] Phone Care Team Providers Care Port Warden Name Role Phone Merlene Hyde MD Primary Care Provider [phone] Encounter Details Date Type Department Care Team (Late st Contact Info) Description 11/13/2016 Documentation [facility] [place] Family Medicine [address] [place] [address] Family Medicine, Physician [address] [place] [address] Social History Tobacco Use Types Packs/Day Years [...] on filedocumented in this encounter Care Teams Port Warden Relationship Specialty Start Date End Date Merlene Hyde MD [address] [place] [address] [place] [address] PCP - General 03/14/17 09/26/22 documented as of this encounter
--- OUTSIDE RECORDS SUMMARY | 2024-11-02 17:16 | XMS_ITS | Encounter Summary ---
Author Organization [facility] Address [address] [place] [address] Phone Care Team Providers Care Xerox Machine Mechanic Name Role Phone Merlene Hyde MD Primary Care Provider [phone] Encounter Details Date Type Department Care Team (Late st Contact Info) Description 03/20/2017 Conversion Encounter [facility] - [address] [address] Social History Tobacco Use Types Packs/Day Years [...] on filedocumented in this encounter Care Teams Xerox Machine Mechanic Relationship Specialty Start Date End Date Merlene Hyde MD [address] [place] [address] PCP - General 03/14/17 09/26/22 documented as of this encounter
--- OUTSIDE RECORDS SUMMARY | 2024-11-02 17:16 | XMS_ITS | Encounter Summary ---
Author Organization [facility] Address [address] [place] [address] Phone Care Team Providers Care Electrical Assemblies Supervisor Name Role Phone Merlene Hyde MD Primary Care Provider [phone] Encounter Details Date Type Department Care Team (Late st Contact Info) Description 11/03/2018 Patient Outreach [facility] [place] 150 [place] [address] Merlene Hyde MD 150 [place] [address] Social History Tobacco Use Types Packs/Day Years [...] Progress Notes * Merlene Hyde MD - 11/03/2018 12:11 PM EDT Thank you for your efforts. documented in this encounter Plan of Treatment Not on file documented as of this encounter Visit Diagnoses Not on filedocumented in this encounter Care Teams Electrical Assemblies Supervisor Relationship Specialty Start Date End Date Merlene Hyde MD 150 [place] [address] PCP - General 03/14/17 09/26/22 documented as of this encounter
--- OUTSIDE RECORDS SUMMARY | 2024-11-02 17:16 | XMS_ITS | Encounter Summary ---
Author Organization [facility] Address [address] [place] [address] Phone Care Team Providers Care International Student Advisor Name Role Phone Merlene Hyde MD Primary Care Provider [phone] Encounter Details Date Type Department Care Team (Late st Contact Info) Description 09/03/2018 Patient Outreach [facility] [place] 150 [place] [address] Merlene Hyde MD 150 [place] [address] Social History Tobacco Use Types Packs/Day Years [...] Progress Notes * Merlene Hyde MD - 09/03/2018 8:25 AM EST Oh that's so upsetting; thank you for continuing to reach out to him; if you have a phone number that's working please let me know and I'll try to reach him too; thanks documented in this encounter Plan of Treatment Not on file documented as of this encounter Visit Diagnoses Not on filedocumented in this encounter Care Teams International Student Advisor Relationship Specialty Start Date End Date Merlene Hyde MD 150 [facility] CARIE Garcia [address] PCP - General 03/14/17 09/26/22 documented as of this encounter
--- OUTSIDE RECORDS SUMMARY | 2024-11-02 17:16 | XMS_ITS | Encounter Summary ---
Author Organization [facility] Address [address] [place] [address] Phone Care Team Providers Care Clerk Guide Name Role Phone Merlene Hyde MD Primary Care Provider Reason for Visit * Reason Onset Date Comments Follow up appointments 11/17/2018 Encounter Details Date Type Department Care Team (Late st Contact Info) Description 11/17/2018 Patient Outreach [facility] 150 [place] [address] Merlene Hyde MD 150 [place] [address] Follow up appointments Social History Tobacco Use Types Packs/Day [...] on filedocumented in this encounter Care Teams Clerk Guide Relationship Specialty Start Date End Date Merlene Hyde MD 150 [place] [address] PCP - General 03/14/17 09/26/22 documented as of this encounter
--- OUTSIDE RECORDS SUMMARY | 2024-11-02 17:16 | XMS_ITS | Encounter Summary ---
Author Organization [facility] Address [address] [place] [address] Phone Care Team Providers Care Pm Head Cook Name Role Phone Merlene Hyde MD Primary Care Provider Encounter Details Date Type Department Care Team (Late st Contact Info) Description 06/16/2018 Patient Outreach [facility] [place] 150 [place] [address] Merlene Hyde MD 150 [place] [address] Social History Tobacco Use Types Packs/Day Years [...] Progress Notes * Merlene Hyde MD - 06/16/2018 3:26 PM EST Noted; thank you; I will be putting in a request for a neuropsych assessment given his 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
--- OUTSIDE RECORDS SUMMARY | 2024-11-02 17:16 | XMS_ITS | Encounter Summary ---
Author Organization [facility] Address [address] [place] [address] Phone Care Team Providers Care Dog Groomer Name Role Phone Merlene Hyde MD Primary Care Provider [phone] Encounter Details Date Type Department Care Team (Late st Contact Info) Description 06/09/2018 Patient Outreach [facility] [place] 150 [place] [address] Merlene Hyde MD 150 [place], [place] [phone] Social History Tobacco Use Types Packs/Day Years [...] Progress Notes * Merlene Hyde MD - 06/09/2018 11:10 AM EST Great; thank you documented in this encounter Plan of Treatment Not on file documented as of this encounter Visit Diagnoses Not on filedocumented in this encounter Care Teams Dog Groomer Relationship Specialty Start Date End Date Merlene Hyde MD 150 [place] [address] PCP - General 03/14/17 09/26/22 documented as of this encounter
--- OUTSIDE RECORDS SUMMARY | 2024-11-02 17:16 | XMS_ITS | Encounter Summary ---
Author Organization [facility] Address [address] [place] [address] Phone Care Team Providers Care School Cook Name Role Phone Merlene Hyde MD Primary Care Provider [phone] Encounter Details Date Type Department Care Team (Late st Contact Info) Description 01/01/2017 Documentation [facility] Medicine [address] [place] [address] Family Medicine, Physician [address] [place] [address] Social History Tobacco Use Types Packs/Day Years [...] on filedocumented in this encounter Care Teams School Cook Relationship Specialty Start Date End Date Merlene Hyde MD [address] [place] [address] [place] [address] PCP - General 03/14/17 09/26/22 documented as of this encounter
--- OUTSIDE RECORDS SUMMARY | 2024-11-02 17:16 | XMS_ITS | Encounter Summary ---
Author Organization [facility] Address [address] [place] [address] Phone Care Team Providers Care Worship Pastor Name Role Phone Merlene Hyde MD Primary Care Provider [phone] Reason for Visit * Reason Onset Date Comments Appointment Cancelled 10/19/2018 Encounter Details Date Type Department Care Team (Late st Contact Info) Description 10/19/2018 Patient Outreach [facility] [place] 150 [place] [address] Merlene Hyde MD 150 [place] [address] Appointment Cancelled Social History Tobacco Use Types Packs/Day Years [...] Progress Notes * Merlene Hyde MD - 10/19/2018 8:17 AM EDT Noted; thank you documented in this encounter Plan of Treatment Not on file documented as of this encounter Visit Diagnoses Not on filedocumented in this encounter Care Teams Worship Pastor Relationship Specialty Start Date End Date Merlene Hyde MD 150 [facility] CARIE Garcia [address] PCP - General 03/14/17 09/26/22 documented as of this encounter
--- OUTSIDE RECORDS SUMMARY | 2024-11-02 17:16 | XMS_ITS | Encounter Summary ---
Author Organization [facility] Address [address] [place] [address] Phone Care Team Providers Care Irrigation Worker Name Role Phone Merlene Hyde MD Primary Care Provider [phone] Reason for Visit * Reason Onset Date Comments No show appointment 10/27/2018 Encounter Details Date Type Department Care Team (Late st Contact Info) Description 10/27/2018 Patient Outreach [facility] [place] 150 [place] [address] Merlene Hyde MD 150 [place] [address] No show appointment Social History Tobacco Use Types Packs/Day [...] Progress Notes * Merlene Hyde MD - 10/27/2018 12:21 PM EDT Thanks for the update; so frustrating documented in this encounter Plan of Treatment Not on file documented as of this encounter Visit Diagnoses Not on filedocumented in this encounter Care Teams Irrigation Worker Relationship Specialty Start Date End Date Merlene Hyed MD [address] [place] [address] CARIE Garcia [address] PCP - General 03/14/17 09/26/22 documented as of this encounter
--- OUTSIDE RECORDS SUMMARY | 2024-11-02 17:16 | XMS_ITS | Encounter Summary ---
Author Organization [facility] Address [address] [place] [address] Phone Care Team Providers Care Teletypewriter Installer Name Role Phone Merlene Hyde MD Primary Care Provider [phone] Reason for Visit * Reason Onset Date Comments Remind of appointment 10/22/2018 Encounter Details Date Type Department Care Team (Late st Contact Info) Description 10/22/2018 Patient Outreach [facility] [place] 150 [place] [address] Merlene Hyde MD 150 [place] [address] Remind of appointment Social History Tobacco Use [...] Progress Notes * Merlene Hyde MD - 10/22/2018 2:52 PM EDT Noted; thank you; so disappointing documented in this encounter Plan of Treatment Not on file documented as of this encounter Visit Diagnoses Not on filedocumented in this encounter Care Teams Teletypewriter Installer Relationship Specialty Start Date End Date Merlene Hyde MD [address] [place] [address] CARIE Garcia [address] PCP - General 03/14/17 09/26/22 documented as of this encounter
--- OUTSIDE RECORDS SUMMARY | 2024-11-02 17:16 | XMS_ITS | Encounter Summary ---
Author Organization [facility] Address [address] [place] [address] Phone Care Team Providers Care Automotive Service Writer Name Role Phone Merlene Hyde MD Primary Care Provider [phone] Encounter Details Date Type Department Care Team (Late st Contact Info) Description 07/08/2018 Patient Outreach [facility] [place] 150 [place] [address] Merlene Hyde MD 150 [place], [place] [phone] Social History Tobacco Use Types Packs/Day Years [...] Progress Notes * Merlene Hyde MD - 07/08/2018 12:35 PM EST Thanks; noted documented in this encounter Plan of Treatment Not on file documented as of this encounter Visit Diagnoses Not on filedocumented in this encounter Care Teams Automotive Service Writer Relationship Specialty Start Date End Date Merlene Hyde MD 150 [place] [address] PCP - General 03/14/17 09/26/22 documented as of this encounter
--- OUTSIDE RECORDS SUMMARY | 2024-11-02 17:16 | XMS_ITS | Encounter Summary ---
Author Organization [facility] Address [address] [place] [address] Phone Care Team Providers Care Final Inspector And Tester Name Role Phone Merlene Hyde MD Primary Care Provider [phone] Encounter Details Date Type Department Care Team (Late st Contact Info) Description 08/31/2018 Patient Outreach [facility] [place] 150 [place] [address] Merlene Hyde MD 150 [place] [address] Social History Tobacco Use Types Packs/Day Years [...] Progress Notes * Merlene Hyde MD - 08/31/2018 3:27 PM EST Thank you for the update documented in this encounter Plan of Treatment Not on file documented as of this encounter Visit Diagnoses Not on filedocumented in this encounter Care Teams Final Inspector And Tester Relationship Specialty Start Date End Date Merlene Hyde MD 150 [place] [address] PCP - General 03/14/17 09/26/22 documented as of this encounter
--- OUTSIDE RECORDS SUMMARY | 2024-11-02 17:16 | XMS_ITS | Encounter Summary ---
Author Organization [facility] Address [address] [place] [address] Phone Care Team Providers Care Breaker Engineer Name Role Phone Merlene Hyde MD Primary Care Provider [phone] Reason for Visit * Reason Onset Date Comments Follow up appointments 10/08/2018 Encounter Details Date Type Department Care Team (Late st Contact Info) Description 10/08/2018 Patient Outreach [facility] [place] 150 [place] [address] Merlene Hyde MD 150 [place] [address] Follow up appointments Social History Tobacco Use [...] Progress Notes * Merlene Hyde MD - 10/08/2018 1:42 PM EST Noted; thanks; but what is a CHW? * Merlene Hyde MD - 10/08/2018 1:42 PM EST Okay; thanks so much for the info documented in this encounter Plan of Treatment Not on file documented as of this encounter Visit Diagnoses Not on filedocumented in this encounter Care Teams Breaker Engineer Relationship Specialty Start Date End Date Merlene Hyde MD [address] [place] [address] CARIE Garcia [address] PCP - General 03/14/17 09/26/22 documented as of this encounter
--- OUTSIDE RECORDS SUMMARY | 2024-11-02 17:16 | XMS_ITS | Encounter Summary ---
Author Organization [facility] Address [address] [place] [address] Phone Care Team Providers Care Forest Fire Fighter Name Role Phone Merlene Hyde MD Primary Care Provider [phone] Reason for Visit * Reason Onset Date Comments Remind of appointment 11/26/2018 Encounter Details Date Type Department Care Team (Late st Contact Info) Description 11/26/2018 Patient Outreach [facility] 150 [place] [address] Merlene Hyde MD 150 [place] [address] Remind of appointment Social History Tobacco Use [...] on filedocumented in this encounter Care Teams Forest Fire Fighter Relationship Specialty Start Date End Date Merlene Hyde MD 150 [place] [address] PCP - General 03/14/17 09/26/22 documented as of this encounter
--- OUTSIDE RECORDS SUMMARY | 2024-11-02 17:16 | XMS_ITS | Encounter Summary ---
Author Organization [facility] Address [address] [place] [address] Phone Care Team Providers Care Mainspring Strip Inspector Name Role Phone Merlene Hyde MD Primary Care Provider [phone] Reason for Visit * Reason Onset Date Comments [facility] Follow up 09/03/2018 Encounter Details Date Type Department Care Team (Late st Contact Info) Description 09/03/2018 Patient Outreach [facility] 150 [place] [address] Merlene Hyde MD 150 [place] [address] [facility] Follow up Social History Tobacco Use Types Packs/Day Years [...] on filedocumented in this encounter Care Teams Mainspring Strip Inspector Relationship Specialty Start Date End Date Merlene Hyde MD 150 [place] [address] PCP - General 03/14/17 09/26/22 documented as of this encounter
--- OUTSIDE RECORDS SUMMARY | 2024-11-02 17:16 | XMS_ITS | Encounter Summary ---
Author Organization [facility] Address [address] [place] [address] Phone Care Team Providers Care Manager Risk Management Name Role Phone Merlene Hyde MD Primary Care Provider [phone] Reason for Visit * Reason Onset Date Comments Neuropsych 10/08/2018 Encounter Details Date Type Department Care Team (Late st Contact Info) Description 10/08/2018 Patient Out[facility] [place] 150 [place] [address] Merlene Hyde MD 150 [place] [address] Neuropsych Social History Tobacco Use Types Packs/Day Years [...] Notes * Merlene Hyde MD - 10/08/2018 9:17 AM EST Noted; thanks documented in this encounter Plan of Treatment Not on file documented as of this encounter Visit Diagnoses Not on filedocumented in this encounter Care Teams Manager Risk Management Relationship Specialty Start Date End Date Merlene Hyde MD [address] [place] [address] CARIE Garcia [address] PCP - General 03/14/17 09/26/22 documented as of this encounter
--- OUTSIDE RECORDS SUMMARY | 2024-11-02 17:16 | XMS_ITS | Encounter Summary ---
Author Organization [facility] Address [address] [place] [address] Phone Care Team Providers Care Patient Accounts Specialist Name Role Phone Merlene Hyde MD Primary Care Provider [phone] Reason for Visit * Reason Onset Date Comments Cancel Endo appointment 12/02/2018 Encounter Details Date Type Department Care Team (Late st Contact Info) Description 12/02/2018 Patient Outreach [facility] [place] 150 [place] [address] Merlene Hyde MD 150 [place] [address] Cancel Endo appointment Social History Tobacco Use Types Packs/Day [...] Notes * Merlene Hyde MD - 12/02/2018 9:17 AM EDT noted documented in this encounter Plan of Treatment Not on file documented as of this encounter Visit Diagnoses Not on filedocumented in this encounter Care Teams Patient Accounts Specialist Relationship Specialty Start Date End Date Merlene Hyde MD [address] [facility] CARIE Garcia [address] PCP - General 03/14/17 09/26/22 documented as of this encounter
--- OUTSIDE RECORDS SUMMARY | 2024-11-02 17:16 | XMS_ITS | Encounter Summary ---
Author Organization [facility] Address [address] [place] [address] Phone Care Team Providers Care Industrial Aerial Installer Name Role Phone Merlene Hyde MD Primary Care Provider [phone] Reason for Visit * Reason Onset Date Comments Opthamology appoitnemtn 09/03/2018 Encounter Details Date Type Department Care Team (Late st Contact Info) Description 09/03/2018 Patient Outreach [facility] 150 [place] [address] Merlene Hyde MD 150 [place] [address] Opthamology appoitnemtn Social History Tobacco Use Types Packs/Day Years [...] on filedocumented in this encounter Care Teams Industrial Aerial Installer Relationship Specialty Start Date End Date Merlene Hyde MD 150 [place] [address] PCP - General 03/14/17 09/26/22 documented as of this encounter
--- OUTSIDE RECORDS SUMMARY | 2024-11-02 17:16 | XMS_ITS | Encounter Summary ---
Author Organization [facility] Address [address] [place] [address] Phone Care Team Providers Care Eyelet Punch Operator Name Role Phone Merlene Hyde MD Primary Care Provider [phone] Reason for Visit * Reason Onset Date Comments LTSS post anesthesia care unit nurse 10/30/2018 Encounter Details Date Type Department Care Team (Late st Contact Info) Description 10/30/2018 Patient Outreach [facility] 150 [place] [address] Merlene Hyde MD 150 [place] [address] [facility] post anesthesia care unit nursesignal manager History Tobacco Use Types Packs/Day Years Used [...] Progress Notes * Merlene Hyde MD - 10/30/2018 1:52 PM EDT Thank you documented in this encounter Plan of Treatment Not on file documented as of this encounter Visit Diagnoses Not on filedocumented in this encounter Care Teams Eyelet Punch Operator Relationship Specialty Start Date End Date Merlene Hyde MD 150 [facility] CARIE Garcia [address] PCP - General 03/14/17 09/26/22 documented as of this encounter
--- OUTSIDE RECORDS SUMMARY | 2024-11-02 17:16 | XMS_ITS | Encounter Summary ---
Author Organization [facility] Address [address] [place] [address] Phone Care Team Providers Care Produce Manager Name Role Phone Merlene Hyde MD Primary Care Provider [phone] Encounter Details Date Type Department Care Team (Late st Contact Info) Description 07/20/2018 Patient Outreach [facility] 150 [place] [address] Merlene Hyde MD 150 [place] [address] Social History Tobacco Use Types Packs/Day Years [...] on filedocumented in this encounter Care Teams Produce Manager Relationship Specialty Start Date End Date Merlene Hyde MD 150 [place] [address] PCP - General 03/14/17 09/26/22 documented as of this encounter
--- OUTSIDE RECORDS SUMMARY | 2024-11-02 17:16 | XMS_ITS | Encounter Summary ---
Author Organization [facility] Address [address] [place] [address] Phone Care Team Providers Care Real Estate Teacher Name Role Phone Merlene Hyde MD Primary Care Provider [phone] Reason for Visit * Reason Onset Date Comments Follow-up 11/11/2018 Encounter Details Date Type Department Care Team (Late st Contact Info) Description 11/11/2018 Patient Outreach [facility] 150 [place] [address] Merlene Hyde MD 150 [place] [address] Follow-up Social History Tobacco Use Types Packs/Day [...] on filedocumented in this encounter Care Teams Real Estate Teacher Relationship Specialty Start Date End Date Merlene Hyde MD 150 [place] [address] PCP - General 03/14/17 09/26/22 documented as of this encounter
--- OUTSIDE RECORDS SUMMARY | 2024-11-02 17:16 | XMS_ITS | Encounter Summary ---
Author Organization [facility] Address [address] [place] [address] Phone Care Team Providers Care Temper Mill Roller Name Role Phone Merlene Hyde MD Primary Care Provider [phone] Reason for Visit * Reason Onset Date Comments Follow up LTSS 11/02/2018 Encounter Details Date Type Department Care Team (Late st Contact Info) Description 11/02/2018 Patient Outreach [facility] [place] 150 [place] [address] Merlene Hyde MD 150 [place] [address] Follow up LTSS Social History Tobacco Use Types Packs/Day Years [...] Progress Notes * Merlene Hyde MD - 11/02/2018 1:29 PM EDT Good plan; thank you documented in this encounter Plan of Treatment Not on file documented as of this encounter Visit Diagnoses Not on filedocumented in this encounter Care Teams Temper Mill Roller Relationship Specialty Start Date End Date Merlene Hyde MD [address] [place] [address] CARIE Garcia [address] PCP - General 03/14/17 09/26/22 documented as of this encounter
--- OUTSIDE RECORDS SUMMARY | 2024-11-02 17:16 | XMS_ITS | Encounter Summary ---
Author Organization [facility] Address [address] [place] [address] Phone Care Team Providers Care Gaggerman Name Role Phone Merlene Hyde MD Primary Care Provider [phone] Encounter Details Date Type Department Care Team (Late st Contact Info) Description 07/01/2018 Patient Outreach [facility] [place] 150 [place] [address] Merlene Hyde MD 150 [place], [place] [phone] Social History Tobacco Use Types Packs/Day Years [...] Progress Notes * Merlene Hyde MD - 07/01/2018 11:46 AM EST Noted thanks documented in this encounter Plan of Treatment Not on file documented as of this encounter Visit Diagnoses Not on filedocumented in this encounter Care Teams Gaggerman Relationship Specialty Start Date End Date Merlene Hyde MD 150 [place] [address] PCP - General 03/14/17 09/26/22 documented as of this encounter
--- OUTSIDE RECORDS SUMMARY | 2024-11-02 17:16 | XMS_ITS | Encounter Summary ---
Author Organization [facility] Address [address] [place] [address] Phone Care Team Providers Care Food And Nutrition Professor Name Role Phone Merlene Hyde MD Primary Care Provider [phone] Reason for Visit * Reason Onset Date Comments Cancel urology appointment 11/30/2018 Encounter Details Date Type Department Care Team (Late st Contact Info) Description 11/30/2018 Patient Outreach [facility] [address] [place] [address] Merlene Hyde MD 150 [place] [address] Cancel urology appointment Social History Tobacco Use Types Packs/Day [...] on filedocumented in this encounter Care Teams Food And Nutrition Professor Relationship Specialty Start Date End Date Merlene Hyde MD [address] [place] [address] PCP - General 03/14/17 09/26/22 documented as of this encounter
--- OUTSIDE RECORDS SUMMARY | 2024-11-02 17:16 | XMS_ITS | Encounter Summary ---
Author Organization [facility] Address [address] [place] [address] Phone Care Team Providers Care Receiving And Processing Supervisor Name Role Phone Merlene Hyde MD Primary Care Provider [phone] Encounter Details Date Type Department Care Team (Late st Contact Info) Description 07/13/2018 Patient Outreach [facility] 150 [place] [address] Merlene Hyde MD 150 [place] [address] Social History Tobacco Use Types Packs/Day Years [...] on filedocumented in this encounter Care Teams Receiving And Processing Supervisor Relationship Specialty Start Date End Date Merlene Hyde MD 150 [place] [address] PCP - General 03/14/17 09/26/22 documented as of this encounter
--- OUTSIDE RECORDS SUMMARY | 2024-11-02 17:16 | XMS_ITS | Encounter Summary ---
Author Organization [facility] Address [address] [place] [address] Phone Care Team Providers Care Maintenance Worker Swimming Pool Name Role Phone Merlene Hyde MD Primary Care Provider [phone] Reason for Visit * Reason Onset Date Comments Follow up missed appointments 10/29/2018 Encounter Details Date Type Department Care Team (Late st Contact Info) Description 10/29/2018 Patient Outreach [facility] 150 [place] [address] Merlene Hyde MD 150 [place] [address] Follow up missed appointments Social History Tobacco Use Types Packs/Day [...] Progress Notes * Merlene Hyde MD - 10/29/2018 11:59 PM EDT Okay; thank you for the update documented in this encounter Plan of Treatment Not on file documented as of this encounter Visit Diagnoses Not on filedocumented in this encounter Care Teams Maintenance Worker Swimming Pool Relationship Specialty Start Date End Date Merlene Hyde MD [address] [place] [address] CARIE Garcia [address] PCP - General 03/14/17 09/26/22 documented as of this encounter
--- OUTSIDE RECORDS SUMMARY | 2024-11-02 17:16 | XMS_ITS | Encounter Summary ---
Author Organization [facility] Address [address] [place] [address] Phone Care Team Providers Care Waiter/Waitress Second Class Name Role Phone Merlene Hyde MD Primary Care Provider [phone] Encounter Details Date Type Department Care Team (Late st Contact Info) Description 11/20/2016 Documentation [facility] [place] Family Medicine [address] [place] [address] Family Medicine, Physician [address] [place] [address] Social History Tobacco Use Types Packs/Day Years [...] on filedocumented in this encounter Care Teams Waiter/Waitress Second Class Relationship Specialty Start Date End Date Merlene Hyde MD [address] [place] [address] [place] [address] PCP - General 03/14/17 09/26/22 documented as of this encounter
--- OUTSIDE RECORDS SUMMARY | 2024-11-02 17:16 | XMS_ITS | Encounter Summary ---
Author Organization [facility] Address [address] [place] [address] Phone Care Team Providers Care Property Developer Name Role Phone Merlene Hyde MD Primary Care Provider [phone] Encounter Details Date Type Department Care Team (Late st Contact Info) Description 11/25/2016 Documentation [facility] [place] Family Medicine [address] [place] [address] Family Medicine, Physician [address] [place] [address] Social History Tobacco Use Types Packs/Day Years [...] on filedocumented in this encounter Care Teams Property Developer Relationship Specialty Start Date End Date Merlene Hyde MD [address] [place] [address] [place] [address] PCP - General 03/14/17 09/26/22 documented as of this encounter
--- OUTSIDE RECORDS SUMMARY | 2024-11-02 17:16 | XMS_ITS | Encounter Summary ---
Author Organization [facility] Address [address] [place] [address] Phone Care Team Providers Care Heel Cementer Name Role Phone Merlene Hyde MD Primary Care Provider [phone] Encounter Details Date Type Department Care Team (Late st Contact Info) Description 04/24/2015 Documentation [facility] [place] [address] [place] [address] Family Medicine, Physician [address] [place] [address] Social History Tobacco Use Types Packs/Day Years [...] on filedocumented in this encounter Care Teams Heel Cementer Relationship Specialty Start Date End Date Merlene Hyde MD [address] [place] [address] [place] [address] PCP - General 03/14/17 09/26/22 documented as of this encounter
--- OUTSIDE RECORDS SUMMARY | 2024-11-02 17:16 | XMS_ITS | Encounter Summary ---
Author Organization [facility] Address [address] [place] [address] Phone Care Team Providers Care Product Development Intern Name Role Phone Merlene Hyde MD Primary Care Provider [phone] Encounter Details Date Type Department Care Team (Late st Contact Info) Description 05/23/2010 Documentation [facility] [place] Family Medicine [address] [place] [address] Family Medicine, Physician [address] [place] [address] Social History Tobacco Use Types Packs/Day Years [...] on filedocumented in this encounter Care Teams Product Development Intern Relationship Specialty Start Date End Date Merlene Hyde MD [address] [place] [address] [place] [address] PCP - General 03/14/17 09/26/22 documented as of this encounter
--- OUTSIDE RECORDS SUMMARY | 2024-11-02 17:16 | XMS_ITS | Encounter Summary ---
Author Organization [facility] Address [address] [place] [address] Phone Care Team Providers Care Insight Director Name Role Phone Merlene Hyde MD Primary Care Provider Reason for Visit * Reason Onset Date Comments Remind of appointment 11/09/2018 Encounter Details Date Type Department Care Team (Late st Contact Info) Description 11/09/2018 Patient Outreach [facility] [place] 150 [place] [address] Merlene Hyde MD 150 [place] [address] Remind of appointment Social History Tobacco Use [...] Progress Notes * Merlene Hyde MD - 11/09/2018 2:02 PM EDT This situation just becomes more and more discouraging unfortunately- continuously is canceling for all of the appointments that you guys have worked so hard to schedule for him * Merlene Hyde MD - 11/09/2018 2:02 PM EDT I think you've gone way beyond what could be expected for sure; unfortunately he's not ready to re-engage it sounds like; but hopefully he will come on Friday and we can meet when he comes in together documented in this encounter Plan of Treatment Not on file documented as of this encounter Visit Diagnoses Not on filedocumented in this encounter Care Teams Insight Director Relationship Specialty Start Date End Date Merlene Hyde MD [address] [place] [address] CARIE Garcia [address] PCP - General 03/14/17 09/26/22 documented as of this encounter
--- OUTSIDE RECORDS SUMMARY | 2024-11-02 17:16 | XMS_ITS | Encounter Summary ---
Author Organization [facility] Address [address] [place] [address] Phone Care Team Providers Care Air Purifier Servicer Name Role Phone Merlene Hyde MD Primary Care Provider [phone] Reason for Visit * Reason Onset Date Comments Missed appointment 09/02/2018 Encounter Details Date Type Department Care Team (Late st Contact Info) Description 09/02/2018 Patient Outreach [facility] 150 [place] [address] Merlene Hyde MD 150 [place] [address] Missed appointment Social History Tobacco Use Types Packs/Day [...] Progress Notes * Merlene Hyde MD - 09/02/2018 1:38 PM EST noted documented in this encounter Plan of Treatment Not on file documented as of this encounter Visit Diagnoses Not on filedocumented in this encounter Care Teams Air Purifier Servicer Relationship Specialty Start Date End Date Merlene Hyde MD [address] [place] [address] CARIE Garcia [address] PCP - General 03/14/17 09/26/22 documented as of this encounter
--- OUTSIDE RECORDS SUMMARY | 2024-11-02 17:16 | XMS_ITS | Encounter Summary ---
Author Organization [facility] Address [address] [place] [address] Phone Care Team Providers Care Bleach Machine Operator Name Role Phone Merlene Hyde MD Primary Care Provider [phone] Encounter Details Date Type Department Care Team (Late st Contact Info) Description 12/16/2014 Documentation [facility] [place] Family Medicine [address] [place] [address] Family Medicine, Physician [address] [place] [address] Social History Tobacco Use Types Packs/Day Years [...] Start Date End Date Merlene Hyde MD [address] [place] [address] [place] [address] PCP - General 03/14/17 09/26/22 documented as of this encounter
--- OUTSIDE RECORDS SUMMARY | 2024-11-02 17:16 | XMS_ITS | Encounter Summary ---
Author Organization [facility] Address [address] [place] [address] Phone Care Team Providers Care Manufacturing Clerk Name Role Phone Merlene Hyde MD Primary Care Provider Encounter Details Date Type Department Care Team (Late st Contact Info) Description 07/08/2018 Patient Outreach [facility] [place] 150 [place] [address] Merlene Hyde MD 150 [place] [address] Social History Tobacco Use Types Packs/Day Years [...] Notes * Merlene Hyde MD - 07/08/2018 8:51 AM EST Thanks for your persistence and update documented in this encounter Plan of Treatment Not on file documented as of this encounter Visit Diagnoses Not on filedocumented in this encounter Care Teams Manufacturing Clerk Relationship Specialty Start Date End Date Merlene Hyde MD [address] [place] [address] PCP - General 03/14/17 09/26/22 documented as of this encounter
--- OUTSIDE RECORDS SUMMARY | 2024-11-02 17:16 | XMS_ITS | Encounter Summary ---
Author Organization [facility] Address [address] [place] [address] Phone Care Team Providers Care Casino Worker Name Role Phone Merlene Hyde MD Primary Care Provider [phone] Encounter Details Date Type Department Care Team (Late st Contact Info) Description 10/24/2016 Documentation [facility] [address] [place] [address] Family Medicine, Physician [address] [place] [address] Social History Tobacco Use Types Packs/Day Years [...] on filedocumented in this encounter Care Teams Casino Worker Relationship Specialty Start Date End Date Merlene Hyde MD [address] [place] [address] [place] [address] PCP - General 03/14/17 09/26/22 documented as of this encounter
--- OUTSIDE RECORDS SUMMARY | 2024-11-02 17:16 | XMS_ITS | Encounter Summary ---
Author Organization [facility] Address [address] [place] [address] Phone Care Team Providers Care Copy Center Operator Name Role Phone Merlene Hyde MD Primary Care Provider [phone] Encounter Details Date Type Department Care Team (Late st Contact Info) Description 09/09/2018 Patient Outreach [facility] 150 [place] [address] Merlene Hyde MD 150 [place] [address] Social History Tobacco Use Types Packs/Day Years [...] on filedocumented in this encounter Care Teams Copy Center Operator Relationship Specialty Start Date End Date Merlene Hyde MD 150 [place] [address] PCP - General 03/14/17 09/26/22 documented as of this encounter
--- OUTSIDE RECORDS SUMMARY | 2024-11-02 17:16 | XMS_ITS | Encounter Summary ---
Author Organization [facility] Address [address] [place] [address] Phone Care Team Providers Care Sales Architect Name Role Phone Merlene Hyde MD Primary Care Provider [phone] Encounter Details Date Type Department Care Team (Late st Contact Info) Description 06/09/2018 Patient Outreach [facility] 150 [place] [address] Merlene Hyde MD 150 [place], [place] [id number] Social History Tobacco Use Types Packs/Day Years [...] Notes * Merlene Hyde MD - 06/09/2018 12:17 PM EST Thanks for the update documented in this encounter Plan of Treatment Not on file documented as of this encounter Visit Diagnoses Not on filedocumented in this encounter Care Teams Sales Architect Relationship Specialty Start Date End Date Merlene Hyde MD 150 [place] [address] PCP - General 03/14/17 09/26/22 documented as of this encounter
--- OUTSIDE RECORDS SUMMARY | 2024-11-02 17:16 | XMS_ITS | Encounter Summary ---
Author Organization [facility] Address [address] [place] [address] Phone Care Team Providers Care Chief Supply Chain Officer Name Role Phone Merlene Hyde MD Primary Care Provider [phone] Encounter Details Date Type Department Care Team (Late st Contact Info) Description 09/11/2018 Patient Outreach [facility] [place] 150 [place] [address] Merlene Hyde MD 150 [place], [place] [phone] Social History Tobacco Use Types Packs/Day Years [...] Progress Notes * Merlene Hyde MD - 09/11/2018 7:26 AM EST thanks documented in this encounter Plan of Treatment Not on file documented as of this encounter Visit Diagnoses Not on filedocumented in this encounter Care Teams Chief Supply Chain Officer Relationship Specialty Start Date End Date Merlene Hyde MD 150 [place] [address] PCP - General 03/14/17 09/26/22 documented as of this encounter
--- OUTSIDE RECORDS SUMMARY | 2024-11-02 17:16 | XMS_ITS | Encounter Summary ---
Author Organization [facility] Address [address] [place] [address] Phone Care Team Providers Care Guest Room Inspector Name Role Phone Merlene Hyde MD Primary Care Provider [phone] Encounter Details Date Type Department Care Team (Late st Contact Info) Description 10/03/2009 Documentation [facility] [place] [address] [place] [address] Family Medicine, Physician [address] [place] [address] Social History Tobacco Use Types Packs/Day Years [...] on filedocumented in this encounter Care Teams Guest Room Inspector Relationship Specialty Start Date End Date Merlene Hyde MD [address] [place] [address] [place] [address] PCP - General 03/14/17 09/26/22 documented as of this encounter
--- OUTSIDE RECORDS SUMMARY | 2024-11-02 17:16 | XMS_ITS | Encounter Summary ---
Author Organization [facility] Address [address] [place] [address] Phone Care Team Providers Care Nuisance Animal Damage Control Agent Name Role Phone Merlene Hyde MD Primary Care Provider [phone] Encounter Details Date Type Department Care Team (Late st Contact Info) Description 09/30/2014 Documentation [facility] [place] Family Medicine [address] [place] [address] Family Medicine, Physician [address] [place] [address] Social History Tobacco Use Types Packs/Day Years [...] on filedocumented in this encounter Care Teams Nuisance Animal Damage Control Agent Relationship Specialty Start Date End Date Merlene Hyde MD [address] [place] [address] [place] [address] PCP - General 03/14/17 09/26/22 documented as of this encounter
--- OUTSIDE RECORDS SUMMARY | 2024-11-02 17:16 | XMS_ITS | Encounter Summary ---
Author Organization [facility] Address [address] [place] [address] Phone Care Team Providers Care Sulfuric Acid Plant Operator Name Role Phone Merlene Hyde MD Primary Care Provider [phone] Encounter Details Date Type Department Care Team (Late st Contact Info) Description 04/09/2011 Documentation [facility] [place] [address] [place] [address] Family Medicine, Physician [address] [place] [address] Social History Tobacco Use Types Packs/Day Years [...] on filedocumented in this encounter Care Teams Sulfuric Acid Plant Operator Relationship Specialty Start Date End Date Merlene Hyde MD [address] [place] [address] [place] [address] PCP - General 03/14/17 09/26/22 documented as of this encounter
--- OUTSIDE RECORDS SUMMARY | 2024-11-02 17:16 | XMS_ITS | Encounter Summary ---
Author Organization [facility] Address [address] [place] [address] Phone Care Team Providers Care Culture Media Laboratory Assistant Name Role Phone Merlene Hyde MD Primary Care Provider [phone] Encounter Details Date Type Department Care Team (Late st Contact Info) Description 11/26/2016 Documentation [facility] [place] [address] [place] [address] Family Medicine, Physician [address] [place] [address] Social History Tobacco Use Types Packs/Day Years [...] on filedocumented in this encounter Care Teams Culture Media Laboratory Assistant Relationship Specialty Start Date End Date Merlene Hyde MD [address] [place] [address] [place] [address] PCP - General 03/14/17 09/26/22 documented as of this encounter
--- OUTSIDE RECORDS SUMMARY | 2024-11-02 17:16 | XMS_ITS | Encounter Summary ---
Author Organization [facility] Address [address] [place] [address] Phone Care Team Providers Care Assistant Real Estate Manager Name Role Phone Merlene Hyde MD Primary Care Provider [phone] Encounter Details Date Type Department Care Team (Late st Contact Info) Description 07/13/2018 Patient Outreach [facility] [place] 150 [place] [address] Merlene Hyde MD 150 [place] [address] Social History Tobacco Use Types Packs/Day Years [...] Progress Notes * Merlene Hyde MD - 07/13/2018 11:59 PM EST Noted; thank you for the update * Merlene Hyde MD - 07/13/2018 11:59 PM EST Left message on Jeny's voicemail as to when I'd be available to talk * Merlene Hyde MD - 07/13/2018 11:59 PM EST Yes I spoke with Fabiola about this. I will discuss the neuropsych testing with Ervin at his visit with me in August. Thanks documented in this encounter Plan of Treatment Not on file documented as of this encounter Visit Diagnoses Not on filedocumented in this encounter Care Teams Assistant Real Estate Manager Relationship Specialty Start Date End Date Merlene Hyde MD [address] [place] [address] CARIE Garcia [address] PCP - General 03/14/17 09/26/22 documented as of this encounter
--- OUTSIDE RECORDS SUMMARY | 2024-11-02 17:16 | XMS_ITS | Encounter Summary ---
Author Organization [facility] Address [address] [place] [address] Phone Care Team Providers Care Senior Research Manager Name Role Phone Merlene Hyde MD Primary Care Provider [phone] Encounter Details Date Type Department Care Team (Late st Contact Info) Description 02/01/2015 Documentation [facility] [place] [address] [place] [address] Family Medicine, Physician [address] [place] [address] Social History Tobacco Use Types Packs/Day Years [...] on filedocumented in this encounter Care Teams Senior Research Manager Relationship Specialty Start Date End Date Merlene Hyde MD [address] [place] [address] [place] [address] PCP - General 03/14/17 09/26/22 documented as of this encounter
--- OUTSIDE RECORDS SUMMARY | 2024-11-02 17:17 | XMS_ITS | Encounter Summary ---
Author Organization [facility] Address [address] [place] [address] Phone Care Team Providers Care Coal Pipeline Operator Name Role Phone Merlene Hyde MD Primary Care Provider [phone] Encounter Details Date Type Department Care Team (Late st Contact Info) Description 09/02/2018 Patient Outreach [facility] 150 [place] [address] Merlene Hyde MD 150 [place] [address] Social History Tobacco Use Types Packs/Day Years [...] on filedocumented in this encounter Care Teams Coal Pipeline Operator Relationship Specialty Start Date End Date Merlene Hyde MD 150 [place] [address] PCP - General 03/14/17 09/26/22 documented as of this encounter
--- OUTSIDE RECORDS SUMMARY | 2024-11-02 17:17 | XMS_ITS | Encounter Summary ---
Author Organization [facility] Address [address] [place] [address] Phone Care Team Providers Care Saw Repairer Name Role Phone Merlene Hyde MD Primary Care Provider [phone] Encounter Details Date Type Department Care Team (Late st Contact Info) Description 08/13/2018 Patient Outreach [facility] [place] 150 [place] [address] Merlene Hyde MD 150 [place] [address] Social History Tobacco Use Types Packs/Day Years [...] Progress Notes * Merlene Hyde MD - 08/13/2018 8:33 AM EST Thank you for this; met today with Ervin and Jeny Atkins; very helpful and Jeny will be helping him to get specialists out here for adult specialists given his age; discussed neuropsych testing; Ervin on board and agreed verbally and will go sign release to get IEP released from high school documented in this encounter Plan of Treatment Not on file documented as of this encounter Visit Diagnoses Not on filedocumented in this encounter Care Teams Saw Repairer Relationship Specialty Start Date End Date Merlene Hyde MD [address] [place] [address] CARIE Garcia [address] PCP - General 03/14/17 09/26/22 documented as of this encounter
--- OUTSIDE RECORDS SUMMARY | 2024-11-02 17:17 | XMS_ITS | Encounter Summary ---
Author Organization [facility] Address [address] [place] [address] Phone Care Team Providers Care Binder Cutter Name Role Phone Merlene Hyde MD Primary Care Provider Encounter Details Date Type Department Care Team (Late st Contact Info) Description 08/18/2018 Patient Outreach [facility] 150 [place] [address] Merlene Hyde MD 150 [place] [address] Social History Tobacco Use Types Packs/Day Years [...] on filedocumented in this encounter Care Teams Binder Cutter Relationship Specialty Start Date End Date Merlene Hyde MD 150 [place] [address] PCP - General 03/14/17 09/26/22 documented as of this encounter
--- OUTSIDE RECORDS SUMMARY | 2024-11-02 17:17 | XMS_ITS | Encounter Summary ---
Author Organization [facility] Address [address] [place] [address] Phone Care Team Providers Care Speech Pathology Supervisor Name Role Phone Merlene Hyde MD Primary Care Provider [phone] Reason for Visit * Reason Onset Date Comments Remind of Appointment 08/28/2018 Encounter Details Date Type Department Care Team (Late st Contact Info) Description 08/28/2018 Patient Outreach [facility] [place] [address] [place] [address] Merlene Hyde MD 150 [place] [address] Remind of Appointment Social History Tobacco Use Types Packs/Day Years [...] Progress Notes * Merlene Hyde MD - 08/28/2018 12:52 PM EST Great; thank you documented in this encounter Plan of Treatment Not on file documented as of this encounter Visit Diagnoses Not on filedocumented in this encounter Care Teams Speech Pathology Supervisor Relationship Specialty Start Date End Date Merlene Hyde MD [address] [place] [address] CARIE Garcia [address] PCP - General 03/14/17 09/26/22 documented as of this encounter
--- OUTSIDE RECORDS SUMMARY | 2024-11-02 17:17 | XMS_ITS | Encounter Summary ---
Author Organization [facility] Address [address] [place] [address] Phone Care Team Providers Care Geospatial Technician Name Role Phone Mrelene Hyde MD Primary Care Provider [phone] Encounter Details Date Type Department Care Team (Late st Contact Info) Description 08/07/2018 Patient Outreach [facility] 150 [place] [address] Merlene Hyde MD 150 [place] [address] Social History Tobacco Use Types Packs/Day Years [...] on filedocumented in this encounter Care Teams Geospatial Technician Relationship Specialty Start Date End Date Merlene Hyde MD 150 [place] [address] PCP - General 03/14/17 09/26/22 documented as of this encounter
--- OUTSIDE RECORDS SUMMARY | 2024-11-02 17:17 | XMS_ITS | Encounter Summary ---
Author Organization [facility] Address [address] [place] [address] Phone Care Team Providers Care Patient Services Rep Name Role Phone Merlene Hyde MD Primary Care Provider [phone] Encounter Details Date Type Department Care Team (Late st Contact Info) Description 08/17/2018 Patient Outreach [facility] [place] [address] [place] [address] Merlene Hyde MD 150 [place] [address] Social History Tobacco Use Types Packs/Day Years [...] Progress Notes * Merlene Hyde MD - 08/17/2018 3:40 PM EST Claudia-can you talk with Fabiola Duffy and see about scheduling PT-1s for Ervin for these appointments? thanks * Claudia Barcenas MA - 08/17/2018 3:40 PM EST Pt-1's completed and waiting for approval. documented in this encounter Plan of Treatment Not on file documented as of this encounter Visit Diagnoses Not on filedocumented in this encounter Care Teams Patient Services Rep Relationship Specialty Start Date End Date Merlene Hyde MD 150 [facility] CARIE Garcia [address] PCP - General 03/14/17 09/26/22 documented as of this encounter
--- OUTSIDE RECORDS SUMMARY | 2024-11-02 17:17 | XMS_ITS | Encounter Summary ---
Author Organization [facility] Address [address] [place] [address] Phone Care Team Providers Care Brushing Machine Operator Name Role Phone Merlene Hyde MD Primary Care Provider [phone] Encounter Details Date Type Department Care Team (Late st Contact Info) Description 05/25/2014 Documentation [facility] [address] [place] [address] Family Medicine, Physician [address] [place] [address] Social History Tobacco Use Types Packs/Day Years [...] on filedocumented in this encounter Care Teams Brushing Machine Operator Relationship Specialty Start Date End Date Merlene Hyde MD [address] [place] [address] [place] [address] PCP - General 03/14/17 09/26/22 documented as of this encounter
--- OUTSIDE RECORDS SUMMARY | 2024-11-02 17:17 | XMS_ITS | Encounter Summary ---
Author Organization [facility] Address [address] [place] [address] Phone Care Team Providers Care Curtain Stretcher Assembler Name Role Phone Merlene Hyde MD Primary Care Provider [phone] Reason for Visit * Reason Onset Date Comments Endocrinology appointment 09/01/2018 Encounter Details Date Type Department Care Team (Late st Contact Info) Description 09/01/2018 Patient Outreach [facility] [place] [address] [place] [address] Merlene Hyde MD 150 [place] [address] Endocrinology appointment Social History Tobacco Use Types Packs/Day [...] Progress Notes * Merlene Hyde MD - 09/01/2018 7:47 AM EST Jeny-I've printed out multiple endo notes from the past several years--what would you like me to dowith them? * Merlene Hyde MD - 09/01/2018 7:47 AM EST Will do; thanks documented in this encounter Plan of Treatment Not on file documented as of this encounter Visit Diagnoses Not on filedocumented in this encounter Care Teams Curtain Stretcher Assembler Relationship Specialty Start Date End Date Merlene Hyde MD [address] [place] [address] CARIE Garcia [address] PCP - General 03/14/17 09/26/22 documented as of this encounter
--- OUTSIDE RECORDS SUMMARY | 2024-11-02 17:17 | XMS_ITS | Encounter Summary ---
Author Organization [facility] Address [address] [place] [address] Phone Care Team Providers Care General Education Professor Name Role Phone Merlene Hyde MD Primary Care Provider [phone] Reason for Visit * Reason Onset Date Comments Neuropsych Testing 08/28/2018 Encounter Details Date Type Department Care Team (Late st Contact Info) Description 08/28/2018 Patient Outreach [facility] [place] [address] [place] [address] Merlene Hyde MD 150 [place] [address] Neuropsych Testing Social History Tobacco Use Types Packs/Day Years [...] Notes * Merlene Hyde MD - 08/28/2018 3:06 PM EST Great; thank you for doing that documented in this encounter Plan of Treatment Not on file documented as of this encounter Visit Diagnoses Not on filedocumented in this encounter Care Teams General Education Professor Relationship Specialty Start Date End Date Merlene Hyde MD 150 [facility] CARIE Garcia [address] PCP - General 03/14/17 09/26/22 documented as of this encounter
--- OUTSIDE RECORDS SUMMARY | 2024-11-02 17:17 | XMS_ITS | Encounter Summary ---
Author Organization [facility] Address [address] [place] [address] Phone Care Team Providers Care Gold Frame Assembler Name Role Phone Merlene Hyde MD Primary Care Provider Encounter Details Date Type Department Care Team (Late st Contact Info) Description 07/27/2018 Patient Outreach [facility] 150 [place] [address] Merlene Hyde MD 150 [place] [address] Social History Tobacco Use Types Packs/Day Years [...] on filedocumented in this encounter Care Teams Gold Frame Assembler Relationship Specialty Start Date End Date Merlene Hyde MD 150 [place] [address] PCP - General 03/14/17 09/26/22 documented as of this encounter
--- OUTSIDE RECORDS SUMMARY | 2024-11-02 17:17 | XMS_ITS | Encounter Summary ---
Author Organization [facility] Address [address] [place] [address] Phone Care Team Providers Care Agriculture Manager Name Role Phone Merlene Hyde MD Primary Care Provider [phone] Encounter Details Date Type Department Care Team (Late st Contact Info) Description 08/05/2018 Patient Outreach [facility] [place] [address] [place] [address] Merlene Hyde MD 150 [place] [address] Social History Tobacco Use Types Packs/Day Years [...] Progress Notes * Merlene Hyde MD - 08/05/2018 1:19 PM EST Noted; thanks for your follow up and assistance documented in this encounter Plan of Treatment Not on file documented as of this encounter Visit Diagnoses Not on filedocumented in this encounter Care Teams Agriculture Manager Relationship Specialty Start Date End Date Merlene Hyde MD 150 [facility] CARIE Garcia [address] PCP - General 03/14/17 09/26/22 documented as of this encounter
--- OUTSIDE RECORDS SUMMARY | 2024-11-02 17:17 | XMS_ITS | Encounter Summary ---
Author Organization [facility] Address [address] [place] [address] Phone Care Team Providers Care Bridal Stylist Sales Consultant Name Role Phone Merlene Hyde MD Primary Care Provider [phone] Encounter Details Date Type Department Care Team (Late st Contact Info) Description 05/25/2014 Documentation [facility] [place] [address] [place] [address] Family Medicine, Physician [address] [place] [address] Social History Tobacco Use Types Packs/Day Years [...] on filedocumented in this encounter Care Teams Bridal Stylist Sales Consultant Relationship Specialty Start Date End Date Merlene Hyde MD [address] [place] [address] [place] [address] PCP - General 03/14/17 09/26/22 documented as of this encounter
--- OUTSIDE RECORDS SUMMARY | 2024-11-02 17:17 | XMS_ITS | Encounter Summary ---
Author Organization [facility] Address [address] [place] [address] Phone Care Team Providers Care Envelope Press Operator Name Role Phone Merlene Hyde MD Primary Care Provider [phone] Encounter Details Date Type Department Care Team (Late st Contact Info) Description 06/01/2014 Documentation [facility] [place] [address] [place] [address] Family Medicine, Physician [address] [place] [address] Social History Tobacco Use Types Packs/Day Years [...] on filedocumented in this encounter Care Teams Envelope Press Operator Relationship Specialty Start Date End Date Merlene Hyde MD [address] [place] [address] [place] [address] PCP - General 03/14/17 09/26/22 documented as of this encounter
== END 2024-11-02 15:21 | disposition home or self-care (01) ==
LOC: HO.HMCFM 14:26
PROVIDERS: PCP Family Medicine; Visit Provider Family Medicine
DX: Z15.01 Genetic susceptibility to malignant neoplasm of breast (principal); F41.8 Other specified anxiety disorders

== ENCOUNTER → 2024-11-02 14:25 | Outpatient (BNVA) | payer OTHER, SELFPAY | PROVIDERS: PCP Family Medicine; Visit Provider Family Medicine | DX: F41.8 Other specified anxiety disorders (principal); Z15.01 Genetic susceptibility to malignant neoplasm of breast | CPT/HCPCS: 96127; 99212 ==

== ENCOUNTER 2025-02-15 14:48 | Outpatient (AMB) | payer OTHER, SELFPAY ==
--- NOTE | 2025-02-15 14:50 | MHC.OFFVIS ---
Vital Signs 02/15/25 14:52 Height 5 ft 5 in Weight 93 lb BMI 15.5 BP 119/69 Blood Pressure Location Lt brachial Position Sitting Pulse 96 Pulse Oximetry (%) 97 Oxygen Delivery Method Room Air Intake Visit Reasons: colo and endo screening Intake Note: Patient new consult for Colonoscopy and EGD screening Patient cc: N/V in the morning with dizziness and abdominal pain, heartburn, always tired, and Colostomy bag. Denies any other GI issues. 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 Patient was sent to us for colonoscopy screening. Patient states that last screening was done about 3 years ago or so. Patient was going to [facility] in the past, however he wants to stay in [facility] where his primary care doctor is and his oncologist. NOTE FROM DR. ERWIN ONCOLOGY JULY OF 2024: Assessment and plan: This is an unfortunate 23-year-old gentleman with the history of Li-Fraumeni Syndrome. Since the age of 1 he has had multiple malignancies as detailed above. Has had bladder cancer. He had osteosarcoma of the left hip bone x2. He had colon cancer treated with total colectomy and resulting colostomy. He was indulging in alcohol so did not go back for screening studies for 5 years. He has been sober for 12 months. He was then interested in proceeding. He had biopsy of the jaw on 03/[address] Heredia, at maxillofacial surgery in [facility]. He tells me it turned out to be a bone cyst. This is reassuring. We have requested for the pathology. I wanted to proceed with whole body MRI for screening as recommended by NCCN guidelines. However I was not able to schedule it locally. I was actually able to get in touch with Dr. Rashad Barker, his evaporator supervisor at [facility]. She has graciously seen him and has proceeded with the MRI there. These are normal. Except for a renal cyst. Follow-up ultrasound is benign. He had an appointment with [facility] GI on 03/26. He noted a lump in his left testicle. I proceeded with an ultrasound of his scrotum: This came back negative. He had an appointment with Dr. Ramachandran, on 03/24, her note: I have discussed that the lump his is feeling is the left epidydmal cyst. Reassured him that there are no testicular masses palpable or noted on US. Advised to take Motrin and Tylenol if he experiences the discomfort. He was noted to have some atypical cells in the urine cytology. He is now scheduled to have the cystoscopy with sedation in a couple of weeks time. Meanwhile renal ultrasound revealed a benign cyst. As mentioned above unfortunately patient never followed up with GI at [facility] as he would like to stay with our practice is here. He reports epigastric pain and acid reflux. Uses marijuana to help with phantom pain. Currently he is not following any particular diet. Denies any weight loss. Weight has been stable for the last couple years. Denies any melena or hematochezia. Occasional irritation around stoma. Denies any abdominal pain or discomfort. Patient denies dyspepsia, dysphagia or odynophagia. Patient currently is not taking any PPI or H2 mary. Occasionally using Tums for his symptoms. Currently patient is denying drinking alcohol on regular basis. Denies any nausea or vomiting. [facility] Medical History (Updated 02/15/25 @ 20:55 by Alma Rosa Walker, JEAN-BC) Multiple body piercings History of colon cancer History of bone cancer Hx of bladder cancer Anxiety Chronic bronchitis Renal cyst History of chemotherapy PONV (postoperative nausea and vomiting) PTSD (post-traumatic stress disorder) Colostomy in place Nausea and vomiting Abdominal pain ADHD Depression Mandibular bone loss Li-Fraumeni syndrome Surgical History (Updated 02/15/25 @ 20:55 by Alma Rosa Walker, JEAN-BC) Status post total colectomy Hx of cystoscopy Hx of abdominal surgery History of removal of Port-a-Cath History of left lower limb amputation Hx of colectomy History of partial surgical removal of colon Amputated left leg Family History Mother Brain cancer Lung cancer Maternal Grandmother Lung cancer Sister Bone cancer Social History Household Members: None Housing: Other Are you a primary memory care director to a significant other at home: No Do you presently have visiting nurse or other home services: No Alcohol intake: never Comment: aware of trip hazard Patient Tobacco Use Status: Former Tobacco user Tobacco use type: Cigarette Years Smoked: 6 e-Cigarette/Vaping Use: Former Use (stopped 6 months ago.) Second Hand Smoke Exposure: No Substance Use Type: Marijuana service: No Current occupational status: unemployed and disabled Current occupational exposures/hazards: No Cognitive needs: No Hearing needs: No Vision needs: No Review of Systems Const Denies weight gain and Denies weight loss ENT Reports no additional complaints, Denies dysphagia and Denies odynophagia Card Reports no additional complaints Resp Reports no additional complaints GI Denies abdominal pain, Denies belching, Denies melena, Reports bloating, Denies change in bowel habits, Denies dysphagia, Denies excessive flatus, Denies dyspepsia, Reports heartburn, Denies diarrhea, Denies loose stools, Denies nausea, Denies odynophagia and Denies vomiting Reports no additional complaints Musc Reports no additional complaints Neuro Reports no additional complaints Psych Reports no additional complaints Endo Reports no additional complaints Physical Exam Vital Signs: Last Vital Signs Pulse 96 02/15/25 14:52 BP 119/69 02/15/25 14:52 Pulse Ox 97 02/15/25 14:52 Oxygen Delivery Method Room Air 02/15/25 14:52 BMI result Body Mass Index 15.5 Const Other: Ambulating using cane. General: healthy appearing, no acute distress and well developed Nutritional Appearance: well nourished Orientation/consciousness: patient oriented x3 Resp Effort & Inspection: normal respiratory effort, able to speak in complete sentences, no tracheal deviation and symmetric chest movement Auscultation: clear to auscultation bilaterally Cardio Rate: regular rate GI Other: Colonoscopy place. Normal-looking stoma. Brown stool soft in the colostomy bag Inspection: No distended Palpation (GI): Soft to palpation, not firm, nontender and No hepatosplenomegaly present Auscultation: normal bowel sounds General: Yes no CVA tenderness Back/Spine/Pelvis Back: no CVA tenderness Skin General skin exam: elasticity normal, turgor normal and dry skin Neuro General: patient oriented x3 Extrem Other: Left leg amputee Psych Appearance: grossly normal Mental Status: mental status grossly normal Judgement: Good judgement present (Psych) Assessment & Plan Assessment & Plan (1) Epigastric pain: Code(s): R10.13 - Epigastric pain Category: Medical (2) Li-Fraumeni syndrome: Code(s): Z15.01 - Genetic susceptibility to malignant neoplasm of breast Category: Medical (3) Colostomy in place: Code(s): Z93.3 - Colostomy status Category: Medical (4) Status post total colectomy: Code(s): Z90.49 - Acquired absence of other specified parts of digestive tract Category: Surgical (5) GERD (gastroesophageal reflux disease): Code(s): K21.9 - Gastro-esophageal reflux disease without esophagitis Qualifiers: Esophagitis presence: esophagitis presence not specified Qualified Code(s): K21.9 - Gastro-esophageal reflux disease without esophagitis Plan Patient will start taking famotidine daily. Avoid dietary triggers like that snacking. Will check transglutaminase, lipase. Patient had no blood work done for over a year will do CBC, CMP, vitamin B12, folate thyroid study and vitamin-D levels. Patient will return in 2-3 months so we can discuss going for colonoscopy. Message sent to Surgical schedulers to book procedure for patient. Continue colostomy care. Increase fluid intake and activity to promote better bowel motility. Patient is agreeable to current plan of care and verbalizes understanding of instructions. He was given the opportunity to ask questions and all questions answered. Thank you for allowing me to participate in his care Orders: Orders Transglutaminase IgA Today R10.9 - Unspecified abdominal pain Lipase Today R10.9 - Unspecified abdominal pain Complete Blood Count no Diff Today K21.9 - Gastro-esophageal reflux disease without esophagitis Comprehensive Met. Panel Today K21.9 - Gastro-esophageal reflux disease without esophagitis Vitamin B12 and Folate Today R19.7 - Diarrhea, unspecified TSH reflex Free T4 Today K59.00 - Constipation, unspecified Vitamin D 25-OH (D2 and D3) Today E55.9 - Vitamin D deficiency, unspecified Medications: New famotidine (Pepcid) 20 mg PO DAILY 30 tabs 3RF K21.9 - Gastro-esophageal reflux disease without esophagitis Coding Level of Care Code New Pt Level 4 (97658) Diagnoses Epigastric pain R10.13 Li-Fraumeni syndrome Z15.[address] Z93.3 Status post total colectomy Z90.49 Gastroesophageal reflux disease, unspecified whether esophagitis present K21.9 Esophagitis presence: esophagitis presence not specified Time Spent (min) 50 Comment 35 minutes spent with patient and additional 15 minutes spent reviewing his records
[2025-02-15 14:52] VITALS: BP 119/69; PULSE 96; O2SAT 97; BMI 15.5
--- OUTSIDE RECORDS SUMMARY | 2025-02-15 16:10 | XMS_ITS | Encounter Summary ---
Author Organization [facility] Address [address] [place] [address] Phone Care Team Providers Care Clinical Research Nurse Name Role Phone Merlene Hyde MD Primary Care Provider [phone] Encounter Details Date Type Department Care Team (Late st Contact Info) Description 02/15/2014 Documentation [facility] [place] [address] [place] [address] Family Medicine, Physician [address] [place] [address] Social History Tobacco Use Types Packs/Day Years [...] on filedocumented in this encounter Care Teams Clinical Research Nurse Relationship Specialty Start Date End Date Merlene Hyde MD [address] [place] [address] [place] [address] PCP - General 03/14/17 09/26/22 documented as of this encounter
== END 2025-02-15 15:21 | disposition home or self-care (01) ==
LOC: HO.HGI 14:49
PROVIDERS: PCP Family Medicine; Visit Provider Nurse Practitioner Family
DX: R10.13 Epigastric pain (principal); Z15.01 Genetic susceptibility to malignant neoplasm of breast; Z93.3 Colostomy status; Z90.49 Acquired absence of other specified parts of digestive tract; K21.9 Gastro-esophageal reflux disease without esophagitis
CPT/HCPCS: 99204

== ENCOUNTER → 2025-02-15 14:48 | Outpatient (BNVA) | payer OTHER, SELFPAY | PROVIDERS: PCP Family Medicine; Visit Provider Nurse Practitioner Family | DX: R10.13 Epigastric pain (principal); Z93.3 Colostomy status; Z90.49 Acquired absence of other specified parts of digestive tract; K21.9 Gastro-esophageal reflux disease without esophagitis; Z15.01 Genetic susceptibility to malignant neoplasm of breast | CPT/HCPCS: 99202 ==

== ENCOUNTER 2025-04-13 15:25 | Outpatient (AMB) | payer OTHER, SELFPAY ==
[2025-04-13 15:27] VITALS: BP 137/90; PULSE 64; O2SAT 98; BMI 14.6
--- NOTE | 2025-04-13 15:27 | A.OFFVIS_ITS ---
Vital Signs 04/13/25 15:27 Height 5 ft 5 in Weight 88 lb BMI 14.6 BP 137/90 H Blood Pressure Location Lt brachial Position Sitting Pulse 64 Pulse Oximetry (%) 98 Oxygen Delivery Method Room Air Intake Visit Reasons: 2 mo Intake Note: Patient follow up for Colostomy in place Patient denies any GI issues. Material Preparation Worker Required: No Accompanied by: Friend Allergies lorazepam (From Ativan) Allergy (Severe, Verified 04/13/25 15:26) Vomiting, manic shellfish derived Allergy (Mild, Verified 04/13/25 15:26) throat swelling Codeine Phosphate Allergy (Severe, Uncoded 06/14/24 14:20) vomitting HPI HPI 2 mo: Details: LAST VISIT Epigastric pain Li-Fraumeni syndrome Colostomy in place Status post total colectomy GERD (gastroesophageal reflux disease) Plan Patient will start taking famotidine daily. Avoid dietary triggers like that snacking. Will check transglutaminase, lipase. Patient had no blood work done for over a year will do CBC, CMP, vitamin B12, folate thyroid study and vitamin- D levels. Patient will return in 2-3 months so we can discuss going for colonoscopy. Message sent to Surgical schedulers to book procedure for patient. Continue colostomy care. Increase fluid intake and activity to promote better bowel motility. Patient is agreeable to current plan of care and verbalizes understanding of instructions. He was given the opportunity to ask questions and all questions answered. ? Thank you for allowing me to participate in his care Orders Transglutaminase IgA Today R10.9 Lipase Today R10.9 Complete Blood Count no Diff Today K21.9 Comprehensive Met. Panel Today K21.9 Vitamin B12 and Folate Today R19.7 TSH reflex Free T4 Today K59.00 Vitamin D 25-OH (D2 and D3) Today E55.9 New famotidine (Pepcid) 20 mg PO DAILY 30 tabs 3RF K21.9 TODAY'S VISIT Patient is here today for follow-up. Patient reports that he has been doing fairly well. He has to postpone his colonoscopy as he does not have anyone to give him right to the procedure and back. 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 Patient will call surgical schedules to change that. Patient reports that he is feeling fairly well. Couple weeks ago patient states that he drank alcohol and was vomiting. No nausea or vomiting since. Patient reports that he has been doing fairly well. Eating healthier and avoiding trigger foods. Patient denies melena, hematochezia, unintentional weight loss. [facility] Medical History (Updated 04/13/25 @ 19:59 by Alma Rosa Walker [facility]) Multiple body piercings History of colon cancer History of bone cancer Hx of bladder cancer Anxiety Chronic bronchitis Renal cyst History of chemotherapy PONV (postoperative nausea and vomiting) PTSD (post-traumatic stress disorder) Colostomy in place Nausea and vomiting Abdominal pain ADHD Depression Mandibular bone loss Li-Fraumeni syndrome Surgical History Status post total colectomy Hx of cystoscopy Hx of abdominal surgery History of removal of Port-a-Cath History of left lower limb amputation Hx of colectomy History of partial surgical removal of colon Amputated left leg Family History Mother Brain cancer Lung cancer Maternal Grandmother Lung cancer Sister Bone cancer Social History Household Members: None Housing: Other Are you a primary home care physical therapist to a significant other at home: No Do you presently have visiting nurse or other home services: No Alcohol intake: never Comment: aware of trip hazard Patient Tobacco Use Status: Former Tobacco user Tobacco use type: Cigarette Years Smoked: 6 e-Cigarette/Vaping Use: Former Use (stopped 6 months ago.) Second Hand Smoke Exposure: No Substance Use Type: Marijuana service: No Current occupational status: unemployed and disabled Current occupational exposures/hazards: No Cognitive needs: No Hearing needs: No Vision needs: No Review of Systems Const Denies weight gain and Denies weight loss ENT Reports no additional complaints, Denies dysphagia and Denies odynophagia Card Reports no additional complaints Resp Reports no additional complaints GI Denies abdominal pain, Denies belching, Denies melena, Reports bloating, Denies change in bowel habits, Denies dysphagia, Denies excessive flatus, Denies dyspepsia, Denies heartburn, Denies diarrhea, Denies loose stools, Reports nausea (Episode of nausea couple weeks ago), Denies odynophagia and Denies vomiting Reports no additional complaints Musc Reports no additional complaints Neuro Reports no additional complaints Psych Reports no additional complaints Endo Reports no additional complaints Physical Exam Vital Signs: Last Vital Signs Pulse 64 04/13/25 15:27 BP 137/90 H 04/13/25 15:27 Pulse Ox 98 04/13/25 15:27 Oxygen Delivery Method Room Air 04/13/25 15:27 BMI result Body Mass Index 14.6 Const Other: Ambulating using cane. General: healthy appearing, no acute distress and well developed Nutritional Appearance: well nourished Orientation/consciousness: patient oriented x3 Resp Effort & Inspection: normal respiratory effort, able to speak in complete sentences, no tracheal deviation and symmetric chest movement Auscultation: clear to auscultation bilaterally Cardio Rate: regular rate GI Other: Colonoscopy place. Normal-looking stoma. Brown stool soft in the colostomy bag Inspection: No distended Palpation (GI): Soft to palpation, not firm, nontender and No hepatosplenomegaly present Auscultation: normal bowel sounds General: Yes no CVA tenderness Back/Spine/Pelvis Back: no CVA tenderness Skin General skin exam: elasticity normal, turgor normal and dry skin Neuro General: patient oriented x3 Extrem Other: Left leg amputee Psych Appearance: grossly normal Mental Status: mental status grossly normal Judgement: Good judgement present (Psych) Assessment & Plan Assessment & Plan (1) Colostomy in place: Code(s): Z93.3 - Colostomy status Category: Medical (2) Abdominal pain: Code(s): R10.9 - Unspecified abdominal pain Category: Medical Qualifiers: Abdominal location: generalized Qualified Code(s): R10.84 - Generalized abdominal pain (3) Epigastric pain: Code(s): R10.13 - Epigastric pain Category: Medical Plan Patient will call to change today for his colonoscopy. Prep at home. Patient verbalizes understanding of instructions. No change since last visit. Patient was encouraged to avoid dietary triggers in late night snacking. Patient was encouraged to avoid alcohol. Continue famotidine as needed. He is agreeable to current plan of care and verbalizes understanding of instructions. He was given the opportunity to ask questions and all questions answered. Thank you for allowing me to participate in his care Coding Level of Care Code Est Pt Level 3 (33642) Diagnoses Colostomy in place Z93.3 Generalized abdominal pain R10.84 Abdominal location: generalized Epigastric pain R10.13 Time Spent (min) 30 Comment 20 minutes spent with patient and additional 10 minutes spent reviewing his records
--- OUTSIDE RECORDS SUMMARY | 2025-04-13 18:21 | XMS_ITS | Encounter Summary ---
Author Organization [facility] Address [address] [place] [address] Phone Care Team Providers Care Microsoft Dynamics Manager Architect Name Role Phone Merlene Hyde MD Primary Care Provider [phone] Encounter Details Date Type Department Care Team (Late st Contact Info) Description 02/19/2010 Documentation [facility] Family Medicine [address] [place] [address] Family Medicine, Physician [address] [place] [address] Social History Tobacco Use Types Packs/Day Years [...] on filedocumented in this encounter Care Teams Microsoft Dynamics Manager Architect Relationship Specialty Start Date End Date Merlene Hyde MD [address] [place] [address] [place] [address] PCP - General 03/14/17 09/26/22 documented as of this encounter
--- OUTSIDE RECORDS SUMMARY | 2025-04-13 18:21 | XMS_ITS | Encounter Summary ---
Author Organization [facility] Address [address] [place] [address] Phone Care Team Providers Care Foreign Food Cook Specialty Name Role Phone Merlene Hyde MD Primary Care Provider [phone] Encounter Details Date Type Department Care Team (Late st Contact Info) Description 02/18/2018 Patient Outreach [facility] [address] [place] [address] Merlene Hyde MD 150 [place] [address] Social History Tobacco Use Types Packs/Day Years [...] on filedocumented in this encounter Care Teams Foreign Food Cook Specialty Relationship Specialty Start Date End Date Merlene Hyde MD [address] [place] [address] CARIE Garcia [address] PCP - General 03/14/17 09/26/22 documented as of this encounter
--- OUTSIDE RECORDS SUMMARY | 2025-04-13 18:21 | XMS_ITS | Encounter Summary ---
Author Organization [facility] Address [address] [place] [address] Phone Care Team Providers Care Flexographic Printing Machinist Name Role Phone Merlene Hyde MD Primary Care Provider [phone] Encounter Details Date Type Department Care Team (Late st Contact Info) Description 05/14/2018 Patient Outreach [facility] [place] 150 [place] [address] Merlene Hyde MD 150 [place] [address] Social History Tobacco Use Types Packs/Day Years [...] on filedocumented in this encounter Care Teams Flexographic Printing Machinist Relationship Specialty Start Date End Date Merlene Hyde MD [address] [place] [address] PCP - General 03/14/17 09/26/22 documented as of this encounter
--- OUTSIDE RECORDS SUMMARY | 2025-04-13 18:21 | XMS_ITS | Encounter Summary ---
Author Organization [facility] Address [address] [place] [address] Phone Care Team Providers Care Green Lumber Grader Name Role Phone Merlene Hyde MD Primary Care Provider [phone] Encounter Details Date Type Department Care Team (Late st Contact Info) Description 03/18/2018 Patient Outreach [facility] [place] [address] [place] [address] Merlene Hyde MD 150 [place] [address] Social History Tobacco Use Types Packs/Day Years [...] on filedocumented in this encounter Care Teams Green Lumber Grader Relationship Specialty Start Date End Date Merlene Hyde MD [address] [place] [address] PCP - General 03/14/17 09/26/22 documented as of this encounter
--- OUTSIDE RECORDS SUMMARY | 2025-04-13 18:21 | XMS_ITS | Encounter Summary ---
Author Organization [facility] Address [address] [place] [address] Phone Care Team Providers Care Heddle Machine Operator Name Role Phone Merlene Hyde MD Primary Care Provider [phone] Reason for Visit * Reason Onset Date Comments Dentist appointment 10/05/2018 Encounter Details Date Type Department Care Team (Late st Contact Info) Description 10/05/2018 Patient Outreach [facility] [place] [address] [place] [address] Merlene Hyde MD 150 [place] [address] Dentist appointment Social History Tobacco Use Types [...] of this encounter Progress Notes * Merlene Hdye MD - 10/05/2018 9:12 AM EST Okay; [...] on filedocumented in this encounter Care Teams Heddle Machine Operator Relationship Specialty Start Date End Date Merlene Hyde MD [address] [place] [address] CARIE Garcia [address] PCP - General 03/14/17 09/26/22 documented as of this encounter
--- OUTSIDE RECORDS SUMMARY | 2025-04-13 18:21 | XMS_ITS | Encounter Summary ---
Author Organization [facility] Address [address] [place] [address] Phone Care Team Providers Care Signal Intelligence/Electronic Warfare Name Role Phone Merlene Hyde MD Primary Care Provider [phone] Reason for Visit * Reason Onset Date Comments Follow-up 10/02/2018 Encounter Details Date Type Department Care Team (Late st Contact Info) Description 10/02/2018 Patient Outreach [facility] [place] [address] [place] [address] Merlene Hyde MD [address] [place] [address] Follow-up Social History Tobacco Use Types Packs/Day [...] on filedocumented in this encounter Care Teams Signal Intelligence/Electronic Warfare Relationship Specialty Start Date End Date Merlene Hyde MD [address] [place] [address] CARIE Garcia [address] PCP - General 03/14/17 09/26/22 documented as of this encounter
--- OUTSIDE RECORDS SUMMARY | 2025-04-13 18:21 | XMS_ITS | Encounter Summary ---
Author Organization [facility] Address [address] [place] [address] Phone Care Team Providers Care Story Writer Name Role Phone Merlene Hyde MD Primary Care Provider [phone] Encounter Details Date Type Department Care Team (Late st Contact Info) Description 05/27/2018 Patient Outreach [facility] 150 [place] [address] Merlene Hyde MD 150 [place] [address] Social History Tobacco Use Types Packs/Day Years [...] on filedocumented in this encounter Care Teams Story Writer Relationship Specialty Start Date End Date Merlene Hyde MD 150 [place] [address] PCP - General 03/14/17 09/26/22 documented as of this encounter
--- OUTSIDE RECORDS SUMMARY | 2025-04-13 18:21 | XMS_ITS | Encounter Summary ---
Author Organization [facility] Address [address] [place] [address] Phone Care Team Providers Care Marine Drafter Name Role Phone Merlene Hyde MD Primary Care Provider Encounter Details Date Type Department Care Team (Late st Contact Info) Description 12/18/2017 Patient Outreach [facility] [place] 150 [place] [address] Merlene Hyde MD 150 [place], [place] [phone] Social History Tobacco Use Types Packs/Day Years [...] on filedocumented in this encounter Care Teams Marine Drafter Relationship Specialty Start Date End Date Merlene Hyde MD 150 [place] [address] PCP - General 03/14/17 09/26/22 documented as of this encounter
--- OUTSIDE RECORDS SUMMARY | 2025-04-13 18:21 | XMS_ITS | Encounter Summary ---
Author Organization [facility] Address [address] [place] [address] Phone Care Team Providers Care Medical I D Sales Name Role Phone Merlene Hyde MD Primary Care Provider Encounter Details Date Type Department Care Team (Late st Contact Info) Description 10/15/2013 Documentation [facility] [place] [facility] Family Medicine [address] [place] [address] Family Medicine, Physician [address] [place] [address] Social History Tobacco Use Types Packs/Day Years [...] filedocumented in this encounter Care Teams Medical I D Sales Relationship Specialty Start Date End Date Merlene Hyde MD [address] [place] [address] [place] [address] PCP - General 03/14/17 09/26/22 documented as of this encounter
--- OUTSIDE RECORDS SUMMARY | 2025-04-13 18:21 | XMS_ITS | Encounter Summary ---
Author Organization [facility] Address [address] [place] [address] Phone Care Team Providers Care Cdl Instructor Name Role Phone Merlene Hyde MD Primary Care Provider [phone] Reason for Visit * Reason Onset Date Comments Cancel appointment tomorrow 10/06/2018 Encounter Details Date Type Department Care Team (Late st Contact Info) Description 10/06/2018 Patient Outreach [facility] 150 [place] [address] Merlene Hyde MD 150 [place] [address] Cancel appointment tomorrow Social History Tobacco Use [...] on filedocumented in this encounter Care Teams Cdl Instructor Relationship Specialty Start Date End Date Merlene Hyde MD 150 [place] [address] PCP - General 03/14/17 09/26/22 documented as of this encounter
--- OUTSIDE RECORDS SUMMARY | 2025-04-13 18:21 | XMS_ITS | Encounter Summary ---
Author Organization [facility] Address [address] [place] [address] Phone Care Team Providers Care Oil Prospecting Observer Name Role Phone Merlene Hyde MD Primary Care Provider [phone] Encounter Details Date Type Department Care Team (Late st Contact Info) Description 05/20/2018 Patient Outreach [facility] 150 [place] [address] Merlene Hyde MD 150 [place] [address] Social History Tobacco Use Types Packs/Day Years [...] on filedocumented in this encounter Care Teams Oil Prospecting Observer Relationship Specialty Start Date End Date Merlene Hyde MD [address] [place] [address] PCP - General 03/14/17 09/26/22 documented as of this encounter
--- OUTSIDE RECORDS SUMMARY | 2025-04-13 18:21 | XMS_ITS | Encounter Summary ---
Author Organization [facility] Address [address] [place] [address] Phone Care Team Providers Care Fagot Maker Name Role Phone Merlene Hyde MD Primary Care Provider [phone] Encounter Details Date Type Department Care Team (Late st Contact Info) Description 01/02/2018 Patient Outreach [facility] 150 [place] [address] Merlene Hyde MD 150 [place] [address] Social History Tobacco Use Types Packs/Day Years [...] on filedocumented in this encounter Care Teams Fagot Maker Relationship Specialty Start Date End Date Merlene Hyde MD 150 [place] [address] PCP - General 03/14/17 09/26/22 documented as of this encounter
--- OUTSIDE RECORDS SUMMARY | 2025-04-13 18:21 | XMS_ITS | Clinical Summary ---
Author Organization [facility] Address [address] [place] [address] Phone Care Team Providers Care Marketing Operations Manager Name Role Phone Carmita Johnson RN Unavailable [phone] Rashad Barker MD, PhD Unavailable [phone] Magdalene La MD Unavailable Un available Eddie Lopez MD Primary Care Provider Allergies Active Allergy Reactions Criticality Noted Date Comments Lorazepam 01/08/2020 Codeine 01/08/2020 Medications ketoconazole (NIZORAL) 2 % shampoo Apply topically 2 (two) times a week. Apply to damp skin, lather, leave on 5 minutes, and rinse 120 mL 5 7 Active ketoconazole 2 % cream Apply topically daily. 60 g 5 7 Active tretinoin (RETIN-A) 0.025 % cream Apply topically nightly. Pea-sized amount to face. Start every 3rd night and increase as tolerated to nightly dosing. Do not take when . 45 g 11 7 Active Social History Tobacco Use Types Packs/Day Years Used Date Smoking Tobacco: Every Day Cigarettes Smokeless Tobacco: Never Alcohol Use Standard Drinks/Week Comments Yes 0 (1 standard drink = 0.6 oz pur e alcohol) vodka Education Answer Date Recorded Are you interested in more education? Not on mirna e 12/08/2022 Are you concerned about learning? Not on file 12/08/2022 No 12/08/2022 No 12/08/2022 Digital Access Answer Date Recorded No 12/29/2022 No 12/29/2022 No 12/29/2022 Reliable internet access at home? Not on file 12/29/2022 Device with a working camera? Not on file Sex and Gender Information Value Date Recorded Sex Assigned at Male 01/08/2020 8:05 PM EDT Legal Sex Male 6:17 PM EST Gender Identity Male 01/08/2020 8:05 PM EDT Sexual Orientation Straight 01/08/2020 8: 05 PM EDT Last Filed Vital Signs Vital Sign Reading Time Taken Comments Blood Pressure 128/96 01/08/2020 8:07 PM EDT Pulse 69 01/08/2020 8:07 PM EDT Temperature 36.7 C (98.1 F) 01/08/2020 8:07 PM EDT Respiratory Rate 20 01/08/2020 8:07 PM EDT Oxygen Saturation 98% 01/08/2020 8:07 PM EDT Inhaled Oxygen Concentration - - Weight 43.1 kg (95 lb) 01/08/2020 8:07 PM EDT Height 162.6 cm (5' 4 ) 01/08/2020 8:07 PM EDT Body Mass Index 16.31 01/08/2020 8:07 PM EDT Plan of Treatment Upcoming Encounters Date Type Department Care Team (Late st Contact Info) Description 07/15/2025 2:00 PM EST Office Visit Pediatric Genetics and Prevention, [facility] [address] [facility], 3rd [place] [address] Rashad Barker MD, PhD [address] [place] [phone] [email or web address] Mary Steiner, [address] [address] [email or web address] 07/15/2025 2:30 PM EST Office Visit Pediatric Genetics and Prevention, [facility] [place] [address] [place] [address] Rashad Barker MD, PhD [address] [place] [phone] [email or web address] 07/15/2025 2:30 PM EST Office Visit Pediatric Genetics and Prevention, [facility] [address] [place] [address], [address] [place] [address] Rashad Barker MD, PhD [address] [place] [phone] [email or web address] Chuy Villatoro, CARTOON DESIGNER [address] [place] [phone] [email or web address] 07/15/2025 3:00 PM EST Blood Draw Pediatric Phlebotomy, [facility] [address] [place] [address], [address] [place] [phone] Rashad Barker MD, PhD [address] [place] [phone] [email or web address] Health Maintenance Due Date Last Done Comments DEPRESSION SCREENING 2010 SMOKING Hx and SMOKELESS TOBACCO SCREENING 2011 HEPATITIS A VACCINES (2 of 2 - 2-dose series) 09/09/2015 03/09/2015 HEPATITIS C SCREENING 02/23/2016 HIV ONE-TIME SCREENING (18-65 YEARS) 02/23/2016 PNEUMOCOCCAL VACCINES (0-49 years) (1 of 2 - PCV) 2017 COVID-19 VACCINE ( - season) 2024 INFLUENZA VACCINE (#1) 2025 9, 08/06/2016, 06/10/2015, Additional history exists Adult Td,Tdap Booster 08/30/2029 08/30/2019, 010 MENINGOCOCCAL VACCINES (ACWY) Completed 03/09/2015 HIB VACCINES Aged Out No longer eligi ble based on patient's age to complete this topic MENINGOCOCCAL VACCINES (B) Aged Out N o longer eligible based on patient's age to complete this topic Medical Devices Not on file Insurance [facility] MEDICARE REPLACEMENT [facility] MEDICARE REPLACEMENT [facility] MEDICARE REPLACEMENT [facility] CARE MEDICARE REPLACEMENT [facility] CARE MEDICARE REPLACEMENT [facility] CARE MEDICARE REPLACEMENT [place]ITO DUDLEY [id number] Care Teams Marketing Operations Manager Relationship Specialty Start Date End Date Eddie Lopez MD [address] [place] [phone] PCP - General 06/04/21 Carmita Johnson RN [address] [place] [phone] [email or web address] Registered Nurse 04/04/15 Rashad Barker MD, PhD [address] [place] [phone] [email or web address] Primary Oncologist Pediatric Hematology and Oncology 06/06/15 Magdalene La MD [address] [place] [phone] Referring Physician Pediatrics 12/21/15 Additional Source Comments The information contained in this document represents components of the legal health record. It is not the complete legal health record.[facility]
--- OUTSIDE RECORDS SUMMARY | 2025-04-13 18:21 | XMS_ITS | Encounter Summary ---
Author Organization [facility] Address [address] [place] [address] Phone Care Team Providers Care Ergonomist Name Role Phone Merlene Hyde MD Primary Care Provider [phone] Encounter Details Date Type Department Care Team (Late st Contact Info) Description 03/03/2018 Patient Outreach [facility] [place] 150 [place] [address] Merlene Hyde MD 150 [place] [address] Social History Tobacco Use Types Packs/Day Years [...] on filedocumented in this encounter Care Teams Ergonomist Relationship Specialty Start Date End Date Merlene Hyde MD [address] [place] [address] CARIE Garcia [address] PCP - General 03/14/17 09/26/22 documented as of this encounter
--- OUTSIDE RECORDS SUMMARY | 2025-04-13 18:21 | XMS_ITS | Clinical Summary ---
Author Organization [facility] Address [address] [place] [address] Phone Care Team Providers Care Sanitation Laborer Name Role Phone Unavailable Primary Care Provider Unavailabl e Allergies Active Allergy Reactions Criticality Noted Date Comments Codeine Other reaction(s): Medications No known medications Active Problems Problem Noted Date Diagnosed Date Self-injurious behavior 08/19/2018 Assessment & Plan (08/19/2018 9:07 PM EST): Denies SI but clearly having difficulties; connected him with therapist here from [facility] who will make appt with him and [...] a therapist; he met with Ayanna from [facility] today who will make a referral for [facility] --intensive care coordination and hopefully for a storekeeper engineering as well S/P AKA (above knee amputation), 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 Assessment & Plan (03/04/2018 2:18 PM EDT): Needs new supports/crutches given he has had left hemipelvectomy; advised appointment with ortho and likely OT Counseling and coordination of care 12/30/2017 Assessment & Plan (03/04/2018 2:19 PM EDT): marriage and family social worker Jeny Atkins present for exam and [...] process of getting back hooked up with [facility]--has gone once; will be having MRI and multiple other appointments; see CC message from Jeny Atkins about all of the appointments she's setting up for him Assessment & Plan (03/04/2018 2:14 PM EDT): Needs to follow up with [facility] because they do surveillance MRI's on a [...] 89 09/10/2018 2:34 PM EST Temperature 36.9 C (98.4 F) 09/10/2018 2:34 PM EST Respiratory Rate - - Oxygen Saturation - [...] 07/12/1999, Additional history exists Influenza Vaccines (#1) 2025 08/14/19 19, 06/10/2015, 05/20/2013, Additional history exists COVID-19 Vaccine ( season) 2025 Hepatitis B Vaccines Completed 1998, 1998, 1998 [...] patient's age to complete this topic Insurance [facility] NON PCC
--- OUTSIDE RECORDS SUMMARY | 2025-04-13 18:21 | XMS_ITS | Encounter Summary ---
Author Organization [facility] Address [address] [place] [address] Phone Care Team Providers Care Funnel Setter Name Role Phone Merlene Hyde MD Primary Care Provider [phone] Encounter Details Date Type Department Care Team (Late st Contact Info) Description 09/03/2013 Documentation [facility] [place] [address] [place] [address] Family Medicine, Physician [address] [place] [address] Social History Tobacco Use Types Packs/Day Years [...] on filedocumented in this encounter Care Teams Funnel Setter Relationship Specialty Start Date End Date Merlene Hyde MD [address] [place] [address] [place] [address] PCP - General 03/14/17 09/26/22 documented as of this encounter
--- OUTSIDE RECORDS SUMMARY | 2025-04-13 18:21 | XMS_ITS | Encounter Summary ---
Author Organization [facility] Address [address] [place] [address] Phone Care Team Providers Care Assistant Quality Manager Name Role Phone Merlene Hyde MD Primary Care Provider [phone] Encounter Details Date Type Department Care Team (Late st Contact Info) Description 04/16/2013 Documentation [facility] [place] Family Medicine [address] [place] [address] Family Medicine, Physician [address] [place] [address] Social History Tobacco Use Types Packs/Day Years [...] filedocumented in this encounter Care Teams Assistant Quality Manager Relationship Specialty Start Date End Date Merlene Hyde MD [address] [place] [address] [place] [address] PCP - General 03/14/17 09/26/22 documented as of this encounter
--- OUTSIDE RECORDS SUMMARY | 2025-04-13 18:21 | XMS_ITS | Encounter Summary ---
Author Organization [facility] Address [address] [place] [address] Phone Care Team Providers Care Ceiling Cleaner Name Role Phone Merlene Hyde MD Primary Care Provider Encounter Details Date Type Department Care Team (Late st Contact Info) Description 04/23/2018 Patient Outreach [facility] [place] [address] [place] [address] Merlene Hyde MD [address] [place], [place] [id number] Social History Tobacco Use Types Packs/Day Years [...] on filedocumented in this encounter Care Teams Ceiling Cleaner Relationship Specialty Start Date End Date Merlene Hyde MD [address] [place] [address] PCP - General 03/14/17 09/26/22 documented as of this encounter
--- OUTSIDE RECORDS SUMMARY | 2025-04-13 18:21 | XMS_ITS | Encounter Summary ---
Author Organization [facility] Address [address] [place] [address] Phone Care Team Providers Care Low Heel Builder Name Role Phone Merlene Hyde MD Primary Care Provider [phone] Encounter Details Date Type Department Care Team (Late st Contact Info) Description 10/21/2013 Documentation [facility] [place] Family Medicine [address] [place] [address] Family Medicine, Physician [address] [place] [address] Social History Tobacco Use Types Packs/Day Years [...] on filedocumented in this encounter Care Teams Low Heel Builder Relationship Specialty Start Date End Date Merlene Hyde MD [address] [place] [address] [place] [address] PCP - General 03/14/17 09/26/22 documented as of this encounter
--- OUTSIDE RECORDS SUMMARY | 2025-04-13 18:21 | XMS_ITS | Encounter Summary ---
Author Organization [facility] Address [address] [place] [address] Phone Care Team Providers Care Lead Sprinkler Name Role Phone Merlene Hyde MD Primary Care Provider [phone] Encounter Details Date Type Department Care Team (Late st Contact Info) Description 02/15/2014 Documentation [facility] [place] [address] [place] [address] Family Medicine, Physician [address] [place] [address] Social History Tobacco Use Types Packs/Day Years [...] on filedocumented in this encounter Care Teams Lead Sprinkler Relationship Specialty Start Date End Date Merlene Hyde MD [address] [place] [address] [place] [address] PCP - General 03/14/17 09/26/22 documented as of this encounter
--- OUTSIDE RECORDS SUMMARY | 2025-04-13 18:21 | XMS_ITS | Encounter Summary ---
Author Organization [facility] Address [address] [place] [address] Phone Care Team Providers Care Gear Lapper Name Role Phone Merlene Hyde MD Primary Care Provider [phone] Encounter Details Date Type Department Care Team (Late st Contact Info) Description 03/11/2018 Patient Outreach [facility] [place] 150 [place] [address] Merlene Hyde MD 150 [place] [address] Social History Tobacco Use Types Packs/Day Years [...] on filedocumented in this encounter Care Teams Gear Lapper Relationship Specialty Start Date End Date Merlene Hyde MD 150 [place] [address] PCP - General 03/14/17 09/26/22 documented as of this encounter
--- OUTSIDE RECORDS SUMMARY | 2025-04-13 18:21 | XMS_ITS | Encounter Summary ---
Author Organization [facility] Address [address] [place] [address] Phone Care Team Providers Care Principal Database Developer Name Role Phone Merlene Hyde MD Primary Care Provider Encounter Details Date Type Department Care Team (Late st Contact Info) Description 05/07/2018 Patient Outreach [facility] 150 [place] [address] Merlene Hyde MD 150 [place] [address] Social History Tobacco Use Types Packs/Day Years [...] on filedocumented in this encounter Care Teams Principal Database Developer Relationship Specialty Start Date End Date Merlene Hyde MD 150 [place] [address] PCP - General 03/14/17 09/26/22 documented as of this encounter
--- OUTSIDE RECORDS SUMMARY | 2025-04-13 18:21 | XMS_ITS | Encounter Summary ---
Author Organization [facility] Address [address] [place] [address] Phone Care Team Providers Care Open Hearth Helper Name Role Phone Merlene Hyde MD Primary Care Provider [phone] Encounter Details Date Type Department Care Team (Late st Contact Info) Description 05/27/2018 Patient Outreach [facility] [place] 150 [place] [address] Merlene Hyde MD 150 [place] [address] Social History Tobacco Use Types Packs/Day Years [...] on filedocumented in this encounter Care Teams Open Hearth Helper Relationship Specialty Start Date End Date Merlene Hyde MD [address] [place] [address] CARIE Garcia [address] PCP - General 03/14/17 09/26/22 documented as of this encounter
--- OUTSIDE RECORDS SUMMARY | 2025-04-13 18:21 | XMS_ITS | Encounter Summary ---
Author Organization [facility] Address [address] [place] [address] Phone Care Team Providers Care Kennel Manager Name Role Phone Merlene Hyde MD Primary Care Provider [phone] Encounter Details Date Type Department Care Team (Late st Contact Info) Description 04/24/2018 Patient Outreach [facility] 150 [place] [address] Merlene Hyde MD 150 [place] [address] Social History Tobacco Use Types Packs/Day Years [...] on filedocumented in this encounter Care Teams Kennel Manager Relationship Specialty Start Date End Date Merlene Hyde MD 150 [place] [address] PCP - General 03/14/17 09/26/22 documented as of this encounter
--- OUTSIDE RECORDS SUMMARY | 2025-04-13 18:21 | XMS_ITS | Encounter Summary ---
Author Organization [facility] Address [address] [place] [address] Phone Care Team Providers Care Stripping Machine Operator Name Role Phone Merlene Hyde MD Primary Care Provider [phone] Encounter Details Date Type Department Care Team (Late st Contact Info) Description 03/11/2018 Patient Outreach [facility] 150 [place] [address] Merlene Hyde MD 150 [place] [address] Social History Tobacco Use Types Packs/Day Years [...] on filedocumented in this encounter Care Teams Stripping Machine Operator Relationship Specialty Start Date End Date Merlene Hyde MD 150 [place] [address] PCP - General 03/14/17 09/26/22 documented as of this encounter
--- OUTSIDE RECORDS SUMMARY | 2025-04-13 18:21 | XMS_ITS | Encounter Summary ---
Author Organization [facility] Address [address] [place] [address] Phone Care Team Providers Care Depilatory Painter Name Role Phone Merlene Hyde MD Primary Care Provider [phone] Encounter Details Date Type Department Care Team (Late st Contact Info) Description 06/01/2013 Documentation [facility] Family Medicine [address] [place] [address] Family Medicine, Physician [address] [place] [address] Social History Tobacco Use Types Packs/Day Years [...] on filedocumented in this encounter Care Teams Depilatory Painter Relationship Specialty Start Date End Date Merlene Hyde MD [address] [place] [address] [place] [address] PCP - General 03/14/17 09/26/22 documented as of this encounter
--- OUTSIDE RECORDS SUMMARY | 2025-04-13 18:21 | XMS_ITS | Encounter Summary ---
Author Organization [facility] Address [address] [place] [address] Phone Care Team Providers Care Block Layer Name Role Phone Merlene Hyde MD Primary Care Provider [phone] Encounter Details Date Type Department Care Team (Late st Contact Info) Description 12/22/2015 Documentation [facility] [place] Family Medicine [address] [place] [address] Family Medicine, Physician [address] [place] [address] Social History Tobacco Use Types Packs/Day Years [...] on filedocumented in this encounter Care Teams Block Layer Relationship Specialty Start Date End Date Merlene Hyde MD [address] [place] [address] [place] [address] PCP - General 03/14/17 09/26/22 documented as of this encounter
--- OUTSIDE RECORDS SUMMARY | 2025-04-13 18:21 | XMS_ITS | Encounter Summary ---
Author Organization [facility] Address [address] [place] [address] Phone Care Team Providers Care Registered Nurse Supervisor Name Role Phone Merlene Hyde MD Primary Care Provider [phone] Encounter Details Date Type Department Care Team (Late st Contact Info) Description 05/24/2013 Documentation [facility] [place] [address] [place] [address] Family Medicine, Physician [address] [place] [address] Social History Tobacco Use Types Packs/Day Years [...] on filedocumented in this encounter Care Teams Registered Nurse Supervisor Relationship Specialty Start Date End Date Merlene Hyde MD [address] [place] [address] [place] [address] PCP - General 03/14/17 09/26/22 documented as of this encounter
--- OUTSIDE RECORDS SUMMARY | 2025-04-13 18:21 | XMS_ITS | Encounter Summary ---
Author Organization [facility] Address [address] [place] [address] Phone Care Team Providers Care Tick Eradicator Name Role Phone Merlene Hyde MD Primary Care Provider [phone] Encounter Details Date Type Department Care Team (Late st Contact Info) Description 12/18/2017 Patient Outreach [facility] [place] 150 [place] [address] Merlene Hyde MD 150 [place], [place] [phone] Social History Tobacco Use Types Packs/Day Years [...] on filedocumented in this encounter Care Teams Tick Eradicator Relationship Specialty Start Date End Date Merlene Hyde MD 150 [place], [place] [phone] PCP - General 03/14/17 09/26/22 documented as of this encounter
--- OUTSIDE RECORDS SUMMARY | 2025-04-13 18:21 | XMS_ITS | Encounter Summary ---
Author Organization [facility] Address [address] [place] [address] Phone Care Team Providers Care Computer Meteorologist Name Role Phone Merlene Hyde MD Primary Care Provider [phone] Encounter Details Date Type Department Care Team (Late st Contact Info) Description 10/13/2013 [place]ation [facility] [place] [address] [place] [address] Family Medicine, Physician [address] [place] [address] Social History Tobacco Use Types Packs/Day Years [...] on filedocumented in this encounter Care Teams Computer Meteorologist Relationship Specialty Start Date End Date Merlene Hyde MD [address] [place] [address] [place] [address] PCP - General 03/14/17 09/26/22 documented as of this encounter
--- OUTSIDE RECORDS SUMMARY | 2025-04-13 18:21 | XMS_ITS | Encounter Summary ---
Author Organization [facility] Address [address] [place] [address] Phone Care Team Providers Care Bench Loom Weaver Name Role Phone Merlene Hyde MD Primary Care Provider [phone] Encounter Details Date Type Department Care Team (Late st Contact Info) Description 12/31/2017 Patient Outreach [facility] [place] 150 [place] [address] Merlene Hyde MD [address] [place], [place] [phone] Social History Tobacco Use Types Packs/Day Years [...] on filedocumented in this encounter Care Teams Bench Loom Weaver Relationship Specialty Start Date End Date Merlene Hyde MD 150 [place] [address] PCP - General 03/14/17 09/26/22 documented as of this encounter
--- OUTSIDE RECORDS SUMMARY | 2025-04-13 18:21 | XMS_ITS | Encounter Summary ---
Author Organization [facility] Address [address] [place] [address] Phone Care Team Providers Care Senior Financial Accountant Name Role Phone Merlene Hyde MD Primary Care Provider [phone] Encounter Details Date Type Department Care Team (Late st Contact Info) Description 04/23/2018 Patient Outreach [facility] 150 [place] [address] Merlene Hyde MD 150 [place] [address] Social History Tobacco Use Types Packs/Day Years [...] filedocumented in this encounter Care Teams Senior Financial Accountant Relationship Specialty Start Date End Date Merlene Hyde MD 150 [place] [address] PCP - General 03/14/17 09/26/22 documented as of this encounter
--- OUTSIDE RECORDS SUMMARY | 2025-04-13 18:21 | XMS_ITS | Encounter Summary ---
Author Organization [facility] Address [address] [place] [address] Phone Care Team Providers Care Spinner Box Name Role Phone Merlene Hyde MD Primary Care Provider [phone] Encounter Details Date Type Department Care Team (Late st Contact Info) Description 02/06/2018 Patient Outreach [facility] [address] [place] [address] Merlene Hyde MD 150 [place] [address] Social History Tobacco Use Types Packs/Day Years [...] on filedocumented in this encounter Care Teams Spinner Box Relationship Specialty Start Date End Date Merlene Hyde MD [address] [place] [address] PCP - General 03/14/17 09/26/22 documented as of this encounter
--- OUTSIDE RECORDS SUMMARY | 2025-04-13 18:21 | XMS_ITS | Encounter Summary ---
Author Organization [facility] Address [address] [place] [address] Phone Care Team Providers Care Helicopter Utility Aircrewman Name Role Phone Merlene Hyde MD Primary Care Provider [phone] Encounter Details Date Type Department Care Team (Late st Contact Info) Description 05/26/[address] [facility] [place] Family [place] [address] [place] [address] Family Medicine, Physician [address] [place] [address] Social History Tobacco Use Types Packs/Day Years [...] on filedocumented in this encounter Care Teams Helicopter Utility Aircrewman Relationship Specialty Start Date End Date Merlene Hyde MD [address] [place] [address] [place] [address] PCP - General 03/14/17 09/26/22 documented as of this encounter
--- OUTSIDE RECORDS SUMMARY | 2025-04-13 18:21 | XMS_ITS | Encounter Summary ---
Author Organization [facility] spital Address [address] [place] [address] Phone Care Team Providers Care Anchor Tack Puller Name Role Phone Rashad Barker MD Unavailable [phone] Chuy Villatoro [employer] Unavailable [phone] Merlene Hyde MD Unavailable Eddie Lopez Unavailable [phone] Merlene Hyde MD Primary Care Provider Rashad Barker MD Unavailable Merlene Hyde MD Unavailable Casie London MD Unavailable Mary Davenport [facility] Unavailable [phone] Katelin Collins PhD Unavailable [phone] Reason for Referral * Imaging (Routine) - Closed Specialty Diagnoses / Procedures Referred By Joaquín waller Referred To Contact Pediatric Radiology Diagnoses Monoallelic mutation of TP53 gene Procedures MR Whole Body Screen WO Contrast Chuy Villatoro, [employer] [address] [place] [address] Phone: tel: fax: Referral ID Status Reason Start Date Expiration Date Visits Re quested Visits Authorized [id number] Closed 03/29/2024 03/29/2025 1 1 Encounter Details Date Type Department Care Team (Late st Contact Info) Description 03/29/2024 Orders Only [facility] Cancer and Blood Disorders [address] [address] Chuy Villatoro, [employer] [address] [place] [address] Monoallelic mutation of TP53 gene (Primary Dx) Social History Tobacco Use Types Packs/Day Years Used Date Smoking Tobacco: Never Assessed Sex and Gender Information Value Date Recorded Sex Assigned at Not on file Legal Sex Male 6:43 PM EDT Gender Identity Not on file Sexual Orientation Not on file documented as of this encounter Plan of Treatment Upcoming Encounters Date Type Department Care Team (Late st Contact Info) Description 07/15/2025 2:00 PM EST Office Visit [facility] Cancer and Blood Disorders [address] [address] Rashad Barker MD [address] [place] [phone] Mary Davenport [address] [address] 07/15/2025 2:30 PM EST Office Visit [facility] Cancer and Blood Disorders [address] [address] Rashad Barker MD [address] [place] [phone] 07/15/2025 2:30 PM EST Office Visit [facility] Genetics and Prevention, [facility] Cancer and Blood Disorders [address] [place] [phone] Rashad Barker MD [address] [place] [phone] Chuy Villatoro, PRAMOD [address] [place] [address] 07/15/2025 3:00 PM EST Clinical Support [facility] Lab Services, [facility] and Blood Disorders [address] [place] [phone] Rashad Barker MD [address] [place] [phone] documented as of this encounter Results * MR Whole Body Screen WO Contrast (07/09/2024 10:59 AM EST) Anatomical Region Laterality Modality Body Magnetic Resonan ce 07/09/2024 11:1 5 AM EST Impressions 07/09/2024 1:23 PM EST IMPRESSION: 1. No new or enlarging solid organ, soft tissue, or osseous lesions. 2. Similar appearance of lesions involving the left posterior chest, liver, and bones as described. The previously demonstrated left renal lesion is not discretely visualized on this examination, possibly representing fluid within a calyceal diverticulum on the prior. Attention to these areas on follow-up surveillance. 3. Please see the accompanying neuroradiologic report for complete description of the findings in the brain. 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 [facility] for surveillance, please compare to prior COMPARISON: Whole body MRI 05/26/2023 and 08/15/2018. TECHNIQUE: Multiplanar multisequence MR imaging was performed from the top of the skull to the feet without intravenous contrast. This large field of view technique is inherently low resolution with limited anatomic detail. FINDINGS: Brain/Spine/Head/Neck: Please see the accompanying neuroradiologic report for complete description of the findings in the brain. Chest: Similar 7 mm ovoid T2 hyperintensity within the intercostal space between the posterior left fifth and sixth ribs (series 8 image 33 and series 23 image 1). No axillary, mediastinal, or hilar lymphadenopathy. No pericardial or pleural effusion. No gross lung parenchymal abnormalities, although limited evaluation on this study. Normal vascular flow voids. Abdomen/Pelvis: Similar 10 mm ovoid T2 hyperintensity within the posterior liver dome (series 3 image 23 and series 8 image 32). The previously demonstrated T2 hyperintensity within the superior pole of the left kidney is not discretely visualized on the current examination, possibly representing fluid within a calyceal diverticulum on the prior examination. Otherwise normal liver, spleen, kidneys, adrenal glands, and gallbladder. No gross pancreatic abnormalities, although the assessment of this region was somewhat limited by motion artifact. No gross abnormalities of the bowel. No mesenteric or retroperitoneal adenopathy. No pelvic masses or inguinal lymphadenopathy. Skeleton/Extremities: Note that the periphery of the upper extremities is incompletely visualized within the [id number]. No new osseous or soft tissue abnormalities are seen. Postsurgical changes are again noted status post left hemipelvectomy and lower extremity amputation. The following osseous lesions are not substantially changed: -Mildly T2 hyperintense signal focus within the left humeral head, series 8 image 18. -Ovoid T2 hyperintense focus within the left proximal humeral diaphysis, 10 mm in coronal CC dimension, series 8 image 22. -Heterogeneously T2 hyperintense focus along the right iliac crest, 13 mm in coronal CC dimension, series 9 image 25. -Ovoid T2 hyperintense focus within the posterior right ilium, 7 mm in coronal CC dimension, series 10 image 29. -Ovoid T2 hyperintense focus within the right greater trochanter, 9 mm in coronal CC dimension, series 10 image 25. -Cortically based T1 hypointense foci within the right proximal tibia, series 21 images 15-17. Procedure Note Guido, Ehsan P, MD - 07/09/2024 PROCEDURE: MR WHOLE BODY SCREEN WO CONTRAST ACTIONABLE FINDINGS: None INDICATION: 24yo M with TP53 pathogenic variant who has been treated for apelvic rhabdomyosarcoma, left femur osteosarcoma x2 and adenocarcinoma ofthe colon. [facility] for surveillance, please compare to prior COMPARISON: Whole body MRI 05/26/2023 and 08/15/2018. TECHNIQUE: Multiplanar multisequence MR imaging was performed from thetop of the skull to the feet without intravenous contrast. This largefield of view technique is inherently low resolution with limited anatomicdetail. FINDINGS: Brain/Spine/Head/Neck: Please see the accompanying neuroradiologic reportfor complete description of the findings in the brain. Chest: Similar 7 mm ovoid T2 hyperintensity within the intercostal spacebetween the posterior left fifth and sixth ribs (series 8 image 33 andseries 23 image 1). No axillary, mediastinal, or hilar lymphadenopathy. Nopericardial or pleural effusion. No gross lung parenchymal abnormalities,although limited evaluation on this study. Normal vascular flow voids. Abdomen/Pelvis: Similar 10 mm ovoid T2 hyperintensity within the posteriorliver dome (series 3 image 23 and series 8 image 32). The previouslydemonstrated T2 hyperintensity within the superior pole of the left kidneyis not discretely visualized on the current examination, possiblyrepresenting fluid within a calyceal diverticulum on the priorexamination. Otherwise normal liver, spleen, kidneys, adrenal glands, andgallbladder. No gross pancreatic abnormalities, although the assessment ofthis region was somewhat limited by motion artifact. No gross abnormalities of the bowel. No mesenteric or retroperitonealadenopathy. No pelvic masses or inguinal lymphadenopathy. Skeleton/Extremities: Note that the periphery of the upper extremities isincompletely visualized within the [id number]. No new osseous or softtissue abnormalities are seen. Postsurgical changes are again noted statuspost left hemipelvectomy and lower extremity amputation. The followingosseous lesions are not substantially changed: -Mildly T2 hyperintense signal focus within the left humeral head, series8 image 18. -Ovoid T2 hyperintense focus within the left proximal humeral diaphysis,10 mm in coronal CC dimension, series 8 image 22. -Heterogeneously T2 hyperintense focus along the right iliac crest, 13 mmin coronal CC dimension, series 9 image 25. -Ovoid T2 hyperintense focus within the posterior right ilium, 7 mm incoronal CC dimension, series 10 image 29. -Ovoid T2 hyperintense focus within the right greater trochanter, 9 mm incoronal CC dimension, series 10 image 25. -Cortically based T1 hypointense foci within the right proximal tibia,series 21 images 15-17. IMPRESSION IMPRESSION: 1. No new or enlarging solid organ, soft tissue, or osseous lesions. 2. Similar appearance of lesions involving the left posterior chest,liver, and bones as described. The previously demonstrated left renallesion is not discretely visualized on this examination, possiblyrepresenting fluid within a calyceal diverticulum on the prior. Attentionto these areas on follow-up surveillance. 3. Please see the accompanying neuroradiologic report for completedescription of the findings in the brain. END OF IMPRESSION Chuy Villatoro [facility] IM MRI PROCEDURES Final Result documented in this encounter Visit Diagnoses Diagnosis Monoallelic mutation of TP53 gene- Primary Monoallelic mutation of TP53 gene documented in this encounter Care Teams Anchor Tack Puller Relationship Specialty Start Date End Date Merlene Hyde MD [address] [place] [address] PCP - Insurance PCP 04/23/18 Eddie Lopez [address] [place] [address] PCP - DFCIPCP 05/26/23 Merlene Hyde MD [address] [place] [address] PCP - General 04/13/18 Merlene Hyde MD [address] [place] [address] PCP - Clinical PCP 04/13/18 Rashad Barker MD Oncologist Pediatric Hematology/Oncology 12/15/23 Chuy Villatoro CNP [address] [place] [phone] Nurse Practitioner Pediatric Hematology/Oncology 12/15/23 Rashad Barker MD [address] [place] [phone] Associate Attending Oncology 06/06/15 Casie London MD [address] [place] [address] HC Outside Warrant Clerk 01/03/24 Mary Davenport, [facility] [address] [place] [address] Genetic Counselor Pediatric Hematology and Oncology 02/25/24 Katelin Collins, PhD [address] [place] [address] Psychologist Psychology 05/19/24 documented as of this encounter
--- OUTSIDE RECORDS SUMMARY | 2025-04-13 18:21 | XMS_ITS | Encounter Summary ---
Author Organization [facility] Address [address] [place] [address] Phone Care Team Providers Care Gas Examiner Name Role Phone Merlene Hyde MD Primary Care Provider [phone] Reason for Visit * Reason Onset Date Comments Case closed 12/02/2018 Encounter Details Date Type Department Care Team (Late st Contact Info) Description 12/02/2018 Patient Outreach [facility] [address] [place] [address] Merlene Hyde MD [address] [place] [address] Case closed Social History Tobacco Use Types [...] on filedocumented in this encounter Care Teams Gas Examiner Relationship Specialty Start Date End Date Merlene Hyde MD [address] [place] [address] CARIE Garcia [phone] PCP - General 03/14/17 09/26/22 documented as of this encounter
--- OUTSIDE RECORDS SUMMARY | 2025-04-13 18:21 | XMS_ITS | Encounter Summary ---
Author Organization [facility] Address [address] [place] [address] Phone Care Team Providers Care Fruit Harvester Machine Operator Name Role Phone Merlene Hyde MD Primary Care Provider [phone] Reason for Visit * Reason Onset Date Comments Cancel appointment 10/06/2018 Encounter Details Date Type Department Care Team (Late st Contact Info) Description 10/06/2018 Patient Outreach [facility] [address] [place] [address] Merlene Hyde MD [address] [place] [address] Cancel appointment Social History Tobacco Use Types [...] on filedocumented in this encounter Care Teams Fruit Harvester Machine Operator Relationship Specialty Start Date End Date Merlene Hyde MD [address] [place] [address] CARIE Garcia [phone] PCP - General 03/14/17 09/26/22 documented as of this encounter
--- OUTSIDE RECORDS SUMMARY | 2025-04-13 18:21 | XMS_ITS | Encounter Summary ---
Author Organization [facility] Address [address] [place] [address] Phone Care Team Providers Care Program Medical Director Name Role Phone Merlene Hyde MD Primary Care Provider [phone] Encounter Details Date Type Department Care Team (Late st Contact Info) Description 03/02/2018 Patient Outreach [facility] [address] [place] [address] Merlene Hyde MD [address] [place] [address] Social History Tobacco Use Types Packs/Day Years [...] on filedocumented in this encounter Care Teams Program Medical Director Relationship Specialty Start Date End Date Merlene Hyde MD [address] [place] [address] PCP - General 03/14/17 09/26/22 documented as of this encounter
--- OUTSIDE RECORDS SUMMARY | 2025-04-13 18:21 | XMS_ITS | Encounter Summary ---
Author Organization [facility] Address [address] [place] [address] Phone Care Team Providers Care Circuitry Negative Inspector Name Role Phone Merlene Hyde MD Primary Care Provider [phone] Encounter Details Date Type Department Care Team (Late st Contact Info) Description 05/25/2018 Patient Outreach [facility] [address] [place] [address] Merlene Hyde MD [address] [place] [address] Social History Tobacco Use Types Packs/Day Years [...] on filedocumented in this encounter Care Teams Circuitry Negative Inspector Relationship Specialty Start Date End Date Merlene Hyde MD [address] [place] [address] CARIE Garcia [address] PCP - General 03/14/17 09/26/22 documented as of this encounter
--- OUTSIDE RECORDS SUMMARY | 2025-04-13 18:21 | XMS_ITS | Clinical Summary ---
Author Organization [facility] spital Address [address] [place] [address] Phone Care Team Providers Care Aviation Electronics Technician Name Role Phone Rashad Barker MD Unavailable [phone] Chuy Villatoro [facility] Unavailable Merlene Hyde MD Unavailable Eddie Lopez Unavailable [phone] Merlene Hyde MD Primary Care Provider Rashad Barker MD Unavailable [phone] Merlene Hyde MD Unavailable [phone] Casie London MD Unavailable Mary Davenport [facility] Unavailable [phone] Katelin Collins PhD Unavailable [phone] Allergies Active Allergy Reactions Criticality Noted Date Comments Acetaminophen-Codeine Rash 08/05/2006 Reaction Type from PowerChart: Allergy; 08/05/2006 14:16 - mother not sure if allergic but reports rash with use Codeine Vomiting 09/05/2011 Other Reaction(s): Codeine allergy Reaction Type from PowerChart: Allergy; Other reaction(s): errortylenol with codeine Lorazepam Agitation 04/21/2012 Other Reaction(s): Anxiety Reaction Type from PowerChart: Allergy; Medications AndroGeL 20.25 mg/1.25 gram (1.62 %) gel in metered-dose pump See Instructions, 3 pumps daily . apply 2 pump one one and 1 pump on other upper arm (40.5 mg )Daily in AM apply to clean, dry, intact skin wash hands thoroughly after application, # 125 Gm, 5 Refills, Maintenance, 05/26/24 3:09:00 AM EDT, [facility]/pharmacy #[id number], Partial fill upon patient request if the prescription is for a schedule II opioid drug., 165, cm, 05/13/24 11:36:00 EDT, Height, 42, kg, 05/29/23 2:31:00 EDT, Dry Weight Active Active Problems Problem Noted Date Diagnosed Date Multiple malignancies 07/16/2024 Monoallelic mutation of TP53 gene 07/16/2024 Immunizations Immunization Administration Dates Next Due Influenza, Unspecified 05/13/2017,07/12/2014,,05/30/2011 Social History Tobacco Use Types Packs/Day Years Used Date Smoking Tobacco: Never Assessed Sex and Gender Information Value Date Recorded Sex Assigned at Not on file Legal Sex Male 6:43 PM EDT Gender Identity Not on file Sexual Orientation Not on file Last Filed Vital Signs Vital Sign Reading Time Taken Comments Blood Pressure 128/67 07/09/2024 11:18 AM EST Pulse 68 07/09/2024 11:18 AM EST Temperature 36.7 C (98.1 F) 07/09/2024 11:18 AM EST Respiratory Rate 20 07/09/2024 11:18 AM EST Oxygen Saturation 98% 07/09/2024 11:18 AM EST Inhaled Oxygen Concentration - - Weight 42.2 kg (93 lb 0.6 oz) 07/09/2024 11:18 A M EST Height 168 cm (5' 6.14 ) 07/09/2024 11:18 AM EST Body Mass Index 14.95 07/09/2024 11:18 AM EST Plan of Treatment Upcoming Encounters Date Type Department Care Team (Late st Contact Info) Description 07/15/2025 2:00 PM EST Office Visit [facility] Genetics and Prevention, [facility] Cancer and Blood Disorders [address] [place] [address] [phone] Rashad Barker MD [address] [place] [phone] Mary Davenport [facility] [address] [place] [address] 07/15/2025 2:30 PM EST Office Visit [facility] Genetics and [facility], [facility] and Blood Disorders [address] [place] [address] [phone] Rashad Barker MD [address] [place] [phone] 07/15/2025 2:30 PM EST Office Visit [facility] Genetics and Prevention, [facility] Cancer and Blood Disorders [address] [phone] Rashad Barker MD [address] [place] [phone] Chuy Villatoro, TRIBAL JUDGE [address] [place] [address] 07/15/2025 3:00 PM EST Clinical Support [facility] Lab Services, [facility] Blood Disorders [address] [phone] Rashad Barker MD [address] [place] [phone] Health Maintenance Due Date Last Done Comments HIV Screening 1998 Hepatitis C Screening 02/23/2016 Influenza Vaccine (#1) 2025 9, 05/13/2017, 08/06/2016, Additional history exists DTaP/Tdap/Td Vaccines (8 - Td or Tdap) 08/30/2029 08/30/2019, 11/07/2009, 08/27/2002, Additional history exists Hepatitis B Vaccines Completed 1998, 1998, 1998 HIB Vaccines Completed 07/09/1999, 09/1998, 1998, Additional history exists IPV Vaccines Completed 08/27/2002, 08/05, 02/23/1999, Additional history exists MMR Vaccines Completed 04/26/2004, 02/23/1999 Pneumococcal Vaccine: Pediatrics (0 to 5 Years) and At-Risk Patients (6 to 49 Years) Aged Out 07/08/2008 No longer eligible based on patient's age to complete this topic Varicella Vaccines Completed 01/09/2009, 02/23/1999 HPV Vaccines Completed 09/24/2013, 05/04, 02/12/2013 Hepatitis A Vaccines Completed 03/09/2015, 02/13/20 13 Meningococcal Vaccine Completed 03/09/2015 , 03/09/2015, 11/07/2009 Meningococcal B Vaccine Aged Out No l onger eligible based on patient's age to complete this topic Rotavirus Vaccines Aged Out No longer eligible based on patient's age to complete this topic Insurance [facility] Care Teams Aviation Electronics Technician Relationship Specialty Start Date End Date Merlene Hyde MD [address] [place] [address] PCP - Insurance PCP 04/23/18 Eddie Lopez [address] [place] [address] PCP - DFCIPCP 05/26/23 Merlene Hyde MD [address] [place] [address] PCP - General 04/13/18 Merlene Hyde MD [address] [place] [address] PCP - Clinical PCP 04/13/18 Rashad Barker MD Oncologist Pediatric Hematology/Oncology 12/15/23 Chuy Villatoro, TRIBAL JUDGE [address] [place] [address] Nurse Practitioner Pediatric Hematology/Oncology 12/15/23 Rashad Barker MD [address] [place] [address] Associate Attending Oncology 06/06/15 Casie Lodnon MD [address] [place] [address] HC Outside Senior Manager 01/03/24 Mary Davenport, [facility] [address] [place] [address] Genetic Counselor Pediatric Hematology and Oncology 02/25/24 Katelin Collins, PhD [address] [place] [address] Psychologist Psychology 05/19/24
--- OUTSIDE RECORDS SUMMARY | 2025-04-13 18:21 | XMS_ITS | Encounter Summary ---
Author Organization [facility] Address [address] [place] [address] Phone Care Team Providers Care Flight Line Mechanic Name Role Phone Merlene Hyde MD Primary Care Provider [phone] Encounter Details Date Type Department Care Team (Late st Contact Info) Description 04/20/2018 Patient Outreach [facility] [place] [address] [place] [address] Merlene Hyde MD [address] [place] [address] Social History Tobacco Use Types Packs/Day Years [...] on filedocumented in this encounter Care Teams Flight Line Mechanic Relationship Specialty Start Date End Date Merlene Hyde MD [address] [place] [address] PCP - General 03/14/17 09/26/22 documented as of this encounter
--- OUTSIDE RECORDS SUMMARY | 2025-04-13 18:21 | XMS_ITS | Encounter Summary ---
Author Organization [facility] Address [address] [place] [address] Phone Care Team Providers Care Heading Repairer Name Role Phone Merlene Hyde MD Primary Care Provider [phone] Encounter Details Date Type Department Care Team (Late st Contact Info) Description 04/14/2018 Patient Outreach [facility] [address] [place] [address] Merlene Hyde MD [address] [place] [address] Social History Tobacco Use Types Packs/Day Years [...] on filedocumented in this encounter Care Teams Heading Repairer Relationship Specialty Start Date End Date Merlene Hyde MD [address] [place] [address] PCP - General 03/14/17 09/26/22 documented as of this encounter
--- OUTSIDE RECORDS SUMMARY | 2025-04-13 18:21 | XMS_ITS | Encounter Summary ---
Author Organization [facility] Address [address] [place] [address] Phone Care Team Providers Care Top Lift Scourer Name Role Phone Merlene Hyde MD Primary Care Provider [phone] Encounter Details Date Type Department Care Team (Late st Contact Info) Description 05/22/2018 Patient Outreach [facility] [place] [address] [place] [address] Merlene Hyde MD [address] [place] [address] Social History Tobacco Use Types Packs/Day Years [...] on filedocumented in this encounter Care Teams Top Lift Scourer Relationship Specialty Start Date End Date Merlene Hyde MD [address] [place] [address] PCP - General 03/14/17 09/26/22 documented as of this encounter
--- OUTSIDE RECORDS SUMMARY | 2025-04-13 18:22 | XMS_ITS | Encounter Summary ---
Author Organization [facility] Address [address] [place] [address] Phone Care Team Providers Care Cereal Supervisor Name Role Phone Merlene Hyde MD Primary Care Provider [phone] Reason for Visit * Reason Onset Date Comments neuropsych testing 09/08/2018 Encounter Details Date Type Department Care Team (Late st Contact Info) Description 09/08/2018 Patient Outreach [facility] [place] [address] [place] [address] Merlene Hyde MD [address] [place] [address] neuropsych testing Social History Tobacco Use Types [...] on filedocumented in this encounter Care Teams Cereal Supervisor Relationship Specialty Start Date End Date Merlene Hyde MD [address] [place] [address] CARIE Garcia [address] PCP - General 03/14/17 09/26/22 documented as of this encounter
--- OUTSIDE RECORDS SUMMARY | 2025-04-13 18:22 | XMS_ITS | Encounter Summary ---
Author Organization [facility] Address [address] [place] [address] Phone Care Team Providers Care Registered Radiographer Name Role Phone Merlene Hyde MD Primary Care Provider [phone] Reason for Visit * Reason Onset Date Comments Cancel urology appointment 11/30/2018 Encounter Details Date Type Department Care Team (Late st Contact Info) Description 11/30/2018 Patient Outreach [facility] 150 [place] [address] Merlene Hyde MD 150 [place] [address] Cancel urology appointment Social History Tobacco Use [...] filedocumented in this encounter Care Teams Registered Radiographer Relationship Specialty Start Date End Date Merlene Hyde MD 150 [place] [address] PCP - General 03/14/17 09/26/22 documented as of this encounter
--- OUTSIDE RECORDS SUMMARY | 2025-04-13 18:22 | XMS_ITS | Encounter Summary ---
Author Organization [facility] Address [address] [place] [address] Phone Care Team Providers Care Computer Clerk Name Role Phone Merlene Hyde MD Primary Care Provider [phone] Encounter Details Date Type Department Care Team (Late st Contact Info) Description 09/29/2018 Patient Outreach [facility] 150 [place] [address] Merlene Hyde MD 150 [place] [address] Social History Tobacco Use Types Packs/Day Years [...] filedocumented in this encounter Care Teams Computer Clerk Relationship Specialty Start Date End Date Merlene Hyde MD 150 [facility] CARIE Garcia [address] PCP - General 03/14/17 09/26/22 documented as of this encounter
--- OUTSIDE RECORDS SUMMARY | 2025-04-13 18:22 | XMS_ITS | Encounter Summary ---
Author Organization [facility] Address [address] [place] [address] Phone Care Team Providers Care Vice President Network Development Name Role Phone Merlene Hyde MD Primary Care Provider [phone] Encounter Details Date Type Department Care Team (Late st Contact Info) Description 11/22/2015 Documentation [facility] [place] Family Medicine [address] [place] [address] Family Medicine, Physician [address] [place] [address] Social History Tobacco Use Types Packs/Day Years [...] on filedocumented in this encounter Care Teams Vice President Network Development Relationship Specialty Start Date End Date Merlene Hyde MD [address] [place] [address] [place] [address] PCP - General 03/14/17 09/26/22 documented as of this encounter
--- OUTSIDE RECORDS SUMMARY | 2025-04-13 18:22 | XMS_ITS | Encounter Summary ---
Author Organization [facility] Address [address] [place] [address] Phone Care Team Providers Care Lawn Mower Operator Name Role Phone Merlene Hyde MD Primary Care Provider [phone] Encounter Details Date Type Department Care Team (Late st Contact Info) Description 10/24/2016 Documentation [facility] [place] [facility] Family Medicine [address] [place] [address] Family Medicine, Physician [address] [place] [address] Social History Tobacco Use Types Packs/Day Years [...] on filedocumented in this encounter Care Teams Lawn Mower Operator Relationship Specialty Start Date End Date Merlene Hyde MD [address] [place] [address] [place] [address] PCP - General 03/14/17 09/26/22 documented as of this encounter
--- OUTSIDE RECORDS SUMMARY | 2025-04-13 18:22 | XMS_ITS | Encounter Summary ---
Author Organization [facility] Address [address] [place] [address] Phone Care Team Providers Care Poem Writer Name Role Phone Melrene Hyde MD Primary Care Provider [phone] Encounter Details Date Type Department Care Team (Late st Contact Info) Description 04/24/2015 Documentation [facility] [place] [address] [place] [address] Family Medicine, Physician [address] [place] [address] Social History Tobacco Use Types Packs/Day Years [...] on filedocumented in this encounter Care Teams Poem Writer Relationship Specialty Start Date End Date Merlene Hyde MD [address] [place] [address] [place] [address] PCP - General 03/14/17 09/26/22 documented as of this encounter
--- OUTSIDE RECORDS SUMMARY | 2025-04-13 18:22 | XMS_ITS | Encounter Summary ---
Author Organization [facility] Address [address] [place] [address] Phone Care Team Providers Care Car Repairer Pullman Name Role Phone Merlene Hyde MD Primary Care Provider [phone] Reason for Visit * Reason Onset Date Comments Remind of appointment 10/26/2018 Encounter Details Date Type Department Care Team (Late st Contact Info) Description 10/26/2018 Patient Outreach [facility] 150 [place] [address] Merlene Hyde MD [address] [place] [address] Remind of appointment Social History Tobacco Use [...] on filedocumented in this encounter Care Teams Car Repairer Pullman Relationship Specialty Start Date End Date Merlene Hyde MD 150 [facility] CAR[place] Garcia [address] PCP - General 03/14/17 09/26/22 documented as of this encounter
--- OUTSIDE RECORDS SUMMARY | 2025-04-13 18:22 | XMS_ITS | Encounter Summary ---
Author Organization [facility] Address [address] [place] [address] Phone Care Team Providers Care Wine Cellar Stock Clerk Name Role Phone Merlene Hyde MD Primary Care Provider [phone] Encounter Details Date Type Department Care Team (Late st Contact Info) Description 07/01/2018 Patient Outreach [facility] 150 [place] [address] Merlene Hyde MD 150 [place], [place] [phone] Social History Tobacco Use Types Packs/Day Years [...] on filedocumented in this encounter Care Teams Wine Cellar Stock Clerk Relationship Specialty Start Date End Date Merlene Hyde MD 150 [place] [address] PCP - General 03/14/17 09/26/22 documented as of this encounter
--- OUTSIDE RECORDS SUMMARY | 2025-04-13 18:22 | XMS_ITS | Encounter Summary ---
Author Organization [facility] Address [address] [place] [address] Phone Care Team Providers Care Police Patrol Officer Name Role Phone Merlene Hyde MD Primary Care Provider Encounter Details Date Type Department Care Team (Late st Contact Info) Description 02/01/2015 Documentation [facility] [place] [address] [place] [address] Family Medicine, Physician [address] [place] [address] Social History Tobacco Use Types Packs/Day Years [...] on filedocumented in this encounter Care Teams Police Patrol Officer Relationship Specialty Start Date End Date Melrene Hyed MD [address] [place] [address] [place] [address] PCP - General 03/14/17 09/26/22 documented as of this encounter
--- OUTSIDE RECORDS SUMMARY | 2025-04-13 18:22 | XMS_ITS | Encounter Summary ---
Author Organization [facility] Address [address] [place] [address] Phone Care Team Providers Care Accounts Payable Manager Name Role Phone Merlene Hyde MD Primary Care Provider [phone] Reason for Visit * Reason Onset Date Comments Follow up appointments 10/08/2018 Encounter Details Date Type Department Care Team (Late st Contact Info) Description 10/08/2018 Patient Outreach [facility] 150 [place] [address] Merlene Hyde MD 150 [place] [address] Follow up appointments Social History Tobacco Use [...] but what is a CHW? * Merlene Hyed MD - 10/08/2018 1:42 PM EST Okay; thanks so much for the info documented in this encounter Plan of Treatment Not on file documented as of this encounter Visit Diagnoses Not on filedocumented in this encounter Care Teams Accounts Payable Manager Relationship Specialty Start Date End Date Merlene Hyde MD [address] [place] [address] [place] Garcia [address] PCP - General 03/14/17 09/26/22 documented as of this encounter
--- OUTSIDE RECORDS SUMMARY | 2025-04-13 18:22 | XMS_ITS | Encounter Summary ---
Author Organization [facility] Address [address] [place] [address] Phone Care Team Providers Care Energy Derivatives Trader Name Role Phone Merlene Hyde MD Primary Care Provider [phone] Reason for Visit * Reason Onset Date Comments Unable to make contact with pt 11/10/2018 Encounter Details Date Type Department Care Team (Late st Contact Info) Description 11/10/2018 Patient Outreach [facility] [place] 150 [place] [address] Merlene Hyde MD 150 [place] [address] Unable to make contact with pt Social [...] on filedocumented in this encounter Care Teams Energy Derivatives Trader Relationship Specialty Start Date End Date Merlene Hyde MD [address] [place] [address] CAR[place] Garcia [address] PCP - General 03/14/17 09/26/22 documented as of this encounter
--- OUTSIDE RECORDS SUMMARY | 2025-04-13 18:22 | XMS_ITS | Encounter Summary ---
Author Organization [facility] Address [address] [place] [address] Phone Care Team Providers Care Store Mgr Name Role Phone Merlene Hyde MD Primary Care Provider [phone] Reason for Visit * Reason Onset Date Comments No show appointment 10/27/2018 Encounter Details Date Type Department Care Team (Late st Contact Info) Description 10/27/2018 Patient Outreach [facility] [place] 150 [place] [address] Merlene Hyde MD 150 [place] [address] No show appointment Social History Tobacco Use [...] on filedocumented in this encounter Care Teams Store Mgr Relationship Specialty Start Date End Date Merlene Hyde MD [address] [place] [address] CAR[place] Garcia [address] PCP - General 03/14/17 09/26/22 documented as of this encounter
--- OUTSIDE RECORDS SUMMARY | 2025-04-13 18:22 | XMS_ITS | Encounter Summary ---
Author Organization [facility] Address [address] [place] [address] Phone Care Team Providers Care Keeler Polygraph Operator Name Role Phone Merlene Hyde MD Primary Care Provider [phone] Encounter Details Date Type Department Care Team (Late st Contact Info) Description 01/07/[address] [facility] [place] Family Medicine [address] [place] [address] Family Medicine, Physician [address] [place] [address] Social History Tobacco Use Types Packs/Day Years [...] on filedocumented in this encounter Care Teams Keeler Polygraph Operator Relationship Specialty Start Date End Date Merlene Hyde MD [address] [place] [address] [place] [address] PCP - General 03/14/17 09/26/22 documented as of this encounter
--- OUTSIDE RECORDS SUMMARY | 2025-04-13 18:22 | XMS_ITS | Encounter Summary ---
Author Organization [facility] Address [address] [place] [address] Phone Care Team Providers Care Central Control Room Operator Name Role Phone Merlene Hyde MD Primary Care Provider [phone] Encounter Details Date Type Department Care Team (Late st Contact Info) Description 04/18/2015 Documentation [facility] [place] Family Medicine [address] [place] [address] Family Medicine, Physician [address] [place] [address] Social History Tobacco Use Types Packs/Day Years [...] on filedocumented in this encounter Care Teams Central Control Room Operator Relationship Specialty Start Date End Date Merlene Hyde MD [address] [place] [address] [place] [address] PCP - General 03/14/17 09/26/22 documented as of this encounter
--- OUTSIDE RECORDS SUMMARY | 2025-04-13 18:22 | XMS_ITS | Encounter Summary ---
Author Organization [facility] Address [address] [place] [address] Phone Care Team Providers Care Printer Maintainer Name Role Phone Merlene Hyde MD Primary Care Provider [phone] Encounter Details Date Type Department Care Team (Late st Contact Info) Description 07/08/2018 Patient Outreach [facility] [place] 150 [place] [address] Merlene Hyde MD 150 [place] [address] Social History Tobacco Use Types Packs/Day Years [...] on filedocumented in this encounter Care Teams Printer Maintainer Relationship Specialty Start Date End Date Merlene Hyde MD [address] [place] [address] PCP - General 03/14/17 09/26/22 documented as of this encounter
--- OUTSIDE RECORDS SUMMARY | 2025-04-13 18:22 | XMS_ITS | Encounter Summary ---
Author Organization [facility] Address [address] [place] [address] Phone Care Team Providers Care Chief I Dispatcher Name Role Phone Merlene Hyde MD Primary Care Provider [phone] Reason for Visit * Reason Onset Date Comments Cancel Endo appointment 12/02/2018 Encounter Details Date Type Department Care Team (Late st Contact Info) Description 12/02/2018 Patient Outreach [facility] 150 [place] [address] Merlene Hyde MD 150 [place] [address] Cancel Endo appointment Social History Tobacco Use [...] filedocumented in this encounter Care Teams Chief I Dispatcher Relationship Specialty Start Date End Date Merlene Hyde MD 150 [facility] CARIE Garcia [address] PCP - General 03/14/17 09/26/22 documented as of this encounter
--- OUTSIDE RECORDS SUMMARY | 2025-04-13 18:22 | XMS_ITS | Encounter Summary ---
Author Organization [facility] Address [address] [place] [address] Phone Care Team Providers Care Rvda Master Certified Rv Technician Name Role Phone Merlene Hyde MD Primary Care Provider [phone] Encounter Details Date Type Department Care Team (Late st Contact Info) Description 01/01/2017 Documentation [facility] [place] Family Medicine [address] [place] [address] Family Medicine, Physician [address] [place] [address] Social History Tobacco Use Types Packs/Day Years [...] on filedocumented in this encounter Care Teams Rvda Master Certified Rv Technician Relationship Specialty Start Date End Date Merlene Hyde MD [address] [place] [address] [place] [address] PCP - General 03/14/17 09/26/22 documented as of this encounter
--- OUTSIDE RECORDS SUMMARY | 2025-04-13 18:22 | XMS_ITS | Encounter Summary ---
Author Organization [facility] Address [address] [place] [address] Phone Care Team Providers Care Tooth Cutter Contact Wheel Name Role Phone Merlene Hyde MD Primary Care Provider [phone] Encounter Details Date Type Department Care Team (Late st Contact Info) Description 11/18/2015 Documentation [facility] [place] Family Medicine [address] [place] [address] Family Medicine, Physician [address] [place] [address] Social History Tobacco Use Types Packs/Day Years [...] on filedocumented in this encounter Care Teams Tooth Cutter Contact Wheel Relationship Specialty Start Date End Date Merlene Hyde MD [address] [place] [address] [place] [address] PCP - General 03/14/17 09/26/22 documented as of this encounter
--- OUTSIDE RECORDS SUMMARY | 2025-04-13 18:22 | XMS_ITS | Encounter Summary ---
Author Organization [facility] Address [address] [place] [address] Phone Care Team Providers Care Scaffolder Name Role Phone Merlene Hyde MD Primary Care Provider [phone] Reason for Visit * Reason Onset Date Comments Follow up appointments 11/17/2018 Encounter Details Date Type Department Care Team (Late st Contact Info) Description 11/17/2018 Patient Outreach [facility] 150 [place] [address] Merlene Hyde MD 150 [place] [address] Follow up appointments Social History Tobacco Use [...] on filedocumented in this encounter Care Teams Scaffolder Relationship Specialty Start Date End Date Merlene Hyde MD 150 [place] [address] PCP - General 03/14/17 09/26/22 documented as of this encounter
--- OUTSIDE RECORDS SUMMARY | 2025-04-13 18:22 | XMS_ITS | Encounter Summary ---
Author Organization [facility] Address [address] [place] [address] Phone Care Team Providers Care Printing Machine Operator Tape Rules Name Role Phone Merlene Hyde MD Primary Care Provider [phone] Reason for Visit * Reason Onset Date Comments Follow up missed appointments 10/29/2018 Encounter Details Date Type Department Care Team (Late st Contact Info) Description 10/29/2018 Patient Outreach [facility] 150 [place] [address] Merlene Hyde MD 150 [place] [address] Follow up missed appointments Social History Tobacco [...] on filedocumented in this encounter Care Teams Printing Machine Operator Tape Rules Relationship Specialty Start Date End Date Merlene Hyde MD [address] [place] [address] CAR[place] Garcia [address] PCP - General 03/14/17 09/26/22 documented as of this encounter
--- OUTSIDE RECORDS SUMMARY | 2025-04-13 18:22 | XMS_ITS | Encounter Summary ---
Author Organization [facility] Address [address] [place] [address] Phone Care Team Providers Care Project Production Engineer Name Role Phone Merlene Hyde MD Primary Care Provider [phone] Encounter Details Date Type Department Care Team (Late st Contact Info) Description 07/16/2018 Patient Outreach [facility] 150 [place] [address] Merlene Hyde MD 150 [place] [address] Social History Tobacco Use Types Packs/Day Years [...] on filedocumented in this encounter Care Teams Project Production Engineer Relationship Specialty Start Date End Date Merlene Hyde MD 150 [place] [address] PCP - General 03/14/17 09/26/22 documented as of this encounter
--- OUTSIDE RECORDS SUMMARY | 2025-04-13 18:22 | XMS_ITS | Encounter Summary ---
Author Organization [facility] Address [address] [place] [address] Phone Care Team Providers Care Basting Machine Operator Name Role Phone Merlene Hyde MD Primary Care Provider [phone] Encounter Details Date Type Department Care Team (Late st Contact Info) Description 11/25/2016 Documentation [facility] [place] [address] [place] [address] Family Medicine, Physician [address] [place] [address] Social History Tobacco Use Types Packs/Day Years [...] on filedocumented in this encounter Care Teams Basting Machine Operator Relationship Specialty Start Date End Date Merlene Hyde MD [address] [place] [address] [place] [address] PCP - General 03/14/17 09/26/22 documented as of this encounter
--- OUTSIDE RECORDS SUMMARY | 2025-04-13 18:22 | XMS_ITS | Encounter Summary ---
Author Organization [facility] Address [address] [place] [address] Phone Care Team Providers Care Advertising Sales Executive Name Role Phone Merlene Hyde MD Primary Care Provider [phone] Encounter Details Date Type Department Care Team (Late st Contact Info) Description 11/03/2018 Patient Outreach [facility] [place] 150 [place] [address] Merlene Hyde MD 150 [place] [address] Social History Tobacco Use Types Packs/Day Years [...] on filedocumented in this encounter Care Teams Advertising Sales Executive Relationship Specialty Start Date End Date Merlene Hyde MD 150 [place] [address] PCP - General 03/14/17 09/26/22 documented as of this encounter
--- OUTSIDE RECORDS SUMMARY | 2025-04-13 18:22 | XMS_ITS | Encounter Summary ---
Author Organization [facility] Address [address] [place] [address] Phone Care Team Providers Care Bi Data Modeler Name Role Phone Merlene Hyde MD Primary Care Provider [phone] Encounter Details Date Type Department Care Team (Late st Contact Info) Description 06/09/2018 Patient Outreach [facility] [place] 150 [place] [address] Merlene Hyde MD 150 [place], [place] [phone] Social History Tobacco Use Types Packs/Day Years [...] on filedocumented in this encounter Care Teams Bi Data Modeler Relationship Specialty Start Date End Date Merlene Hyde MD 150 [place] [address] PCP - General 03/14/17 09/26/22 documented as of this encounter
--- OUTSIDE RECORDS SUMMARY | 2025-04-13 18:22 | XMS_ITS | Encounter Summary ---
Author Organization [facility] Address [address] [place] [address] Phone Care Team Providers Care Sole Cementer Name Role Phone Merlene Hyde MD Primary Care Provider [phone] Encounter Details Date Type Department Care Team (Late st Contact Info) Description 04/09/2011 Documentation [facility] [place] Family Medicine [address] [place] [address] Family Medicine, Physician [address] [place] [address] Social History Tobacco Use Types Packs/Day Years [...] on filedocumented in this encounter Care Teams Sole Cementer Relationship Specialty Start Date End Date Merlene Hyde MD [address] [place] [address] [place] [address] PCP - General 03/14/17 09/26/22 documented as of this encounter
--- OUTSIDE RECORDS SUMMARY | 2025-04-13 18:22 | XMS_ITS | Encounter Summary ---
Author Organization [facility] Address [address] [place] [address] Phone Care Team Providers Care Munitions Handler Supervisor Name Role Phone Merlene Hyde MD Primary Care Provider [phone] Reason for Visit * Reason Onset Date Comments Opthamology [email or web address] 09/03/2018 Encounter Details Date Type Department Care Team (Late st Contact Info) Description 09/03/2018 Patient Outreach [facility] 150 [place] [address] Merlene Hyde MD 150 [place] [address] Opthamology [email or web address] Social History Tobacco Use Types [...] on filedocumented in this encounter Care Teams Munitions Handler Supervisor Relationship Specialty Start Date End Date Merlene Hyde MD 150 [place] [address] PCP - General 03/14/17 09/26/22 documented as of this encounter
--- OUTSIDE RECORDS SUMMARY | 2025-04-13 18:22 | XMS_ITS | Encounter Summary ---
Author Organization [facility] Address [address] [place] [address] Phone Care Team Providers Care Campaign Associate Name Role Phone Merlene Hyde MD Primary Care Provider [phone] Reason for Visit * Reason Onset Date Comments LTSS manager of care 10/30/2018 Encounter Details Date Type Department Care Team (Late st Contact Info) Description 10/30/2018 Patient Outreach [facility] 150 [place] [address] Merlene Hyde MD 150 [place] [address] [facility] manager of caregeneral merchandise manager History Tobacco Use Types Packs/Day Years [...] on filedocumented in this encounter Care Teams Campaign Associate Relationship Specialty Start Date End Date Merlene Hyde MD 150 [facility] CARIE Garcia [address] PCP - General 03/14/17 09/26/22 documented as of this encounter
--- OUTSIDE RECORDS SUMMARY | 2025-04-13 18:22 | XMS_ITS | Encounter Summary ---
Author Organization [facility] Address [address] [place] [address] Phone Care Team Providers Care Ballast Cleaning Operator Name Role Phone Merlene Hyde MD Primary Care Provider [phone] Reason for Visit * Reason Onset Date Comments Neuropsych 10/08/2018 Encounter Details Date Type Department Care Team (Late st Contact Info) Description 10/08/2018 Patient Outreach [facility] 150 [place] [address] Merlene Hyde MD 150 [place] [address] Neuropsych Social History Tobacco Use Types Packs/Day [...] on filedocumented in this encounter Care Teams Ballast Cleaning Operator Relationship Specialty Start Date End Date Merlene Hyde MD [address] [place] [address] CARIE Garcia [address] PCP - General 03/14/17 09/26/22 documented as of this encounter
--- OUTSIDE RECORDS SUMMARY | 2025-04-13 18:22 | XMS_ITS | Encounter Summary ---
Author Organization [facility] Address [address] [place] [address] Phone Care Team Providers Care Laboratory Animal Caretaker Name Role Phone Merlene Hyde MD Primary Care Provider [phone] Reason for Visit * Reason Onset Date Comments cancel appointment 10/16/2018 Encounter Details Date Type Department Care Team (Late st Contact Info) Description 10/16/2018 Patient Outreach [facility] 150 [place] [address] Merlene Hyde MD 150 [place] [address] cancel appointment Social History Tobacco Use Types [...] on filedocumented in this encounter Care Teams Laboratory Animal Caretaker Relationship Specialty Start Date End Date Merlene Hyde MD [address] [place] [address] CARIE Garcia [address] PCP - General 03/14/17 09/26/22 documented as of this encounter
--- OUTSIDE RECORDS SUMMARY | 2025-04-13 18:22 | XMS_ITS | Encounter Summary ---
Author Organization [facility] Address [address] [place] [address] Phone Care Team Providers Care Sports Physician Name Role Phone Merlene Hyde MD Primary Care Provider [phone] Reason for Visit * Reason Onset Date Comments MRI and Xray 09/24/2018 Encounter Details Date Type Department Care Team (Late st Contact Info) Description 09/24/2018 Patient Outreach [facility] 150 [place] [address] Merlene Hyde MD 150 [place] [address] MRI and Xray Social History Tobacco Use [...] on filedocumented in this encounter Care Teams Sports Physician Relationship Specialty Start Date End Date Merlene Hyde MD 150 [facility] CARIE Garcia [address] PCP - General 03/14/17 09/26/22 documented as of this encounter
--- OUTSIDE RECORDS SUMMARY | 2025-04-13 18:22 | XMS_ITS | Encounter Summary ---
Author Organization [facility] Address [address] [place] [address] Phone Care Team Providers Care Manufacturing Machine Operator Name Role Phone Merlene Hyde MD Primary Care Provider [phone] Reason for Visit * Reason Onset Date Comments Remind of appointment 11/26/2018 Encounter Details Date Type Department Care Team (Late st Contact Info) Description 11/26/2018 Patient Outreach [facility] 150 [place] [address] Merlene Hyde MD 150 [place] [address] Remind of appointment Social History Tobacco Use [...] filedocumented in this encounter Care Teams Manufacturing Machine Operator Relationship Specialty Start Date End Date Merlene Hyde MD 150 [place] [address] PCP - General 03/14/17 09/26/22 documented as of this encounter
--- OUTSIDE RECORDS SUMMARY | 2025-04-13 18:22 | XMS_ITS | Encounter Summary ---
Author Organization [facility] Address [address] [place] [address] Phone Care Team Providers Care Customer Experience Specialist Name Role Phone Merlene Hyde MD Primary Care Provider [phone] Encounter Details Date Type Department Care Team (Late st Contact Info) Description 07/20/2018 Patient Outreach [facility] 150 [place] [address] Merlene Hyde MD 150 [place] [address] Social History Tobacco Use Types Packs/Day Years [...] filedocumented in this encounter Care Teams Customer Experience Specialist Relationship Specialty Start Date End Date Merlene Hyde MD 150 [place] [address] PCP - General 03/14/17 09/26/22 documented as of this encounter
--- OUTSIDE RECORDS SUMMARY | 2025-04-13 18:22 | XMS_ITS | Encounter Summary ---
Author Organization [facility] Address [address] [place] [address] Phone Care Team Providers Care Mobile Tester Name Role Phone Merlene Hyde MD Primary Care Provider [phone] Encounter Details Date Type Department Care Team (Late st Contact Info) Description 07/13/2018 Patient Outreach [facility] 150 [place] [address] Merlene Hyde MD 150 [place] [address] Social History Tobacco Use Types Packs/Day Years [...] on filedocumented in this encounter Care Teams Mobile Tester Relationship Specialty Start Date End Date Merlene Hyde MD 150 [place] [address] PCP - General 03/14/17 09/26/22 documented as of this encounter
--- OUTSIDE RECORDS SUMMARY | 2025-04-13 18:22 | XMS_ITS | Encounter Summary ---
Author Organization [facility] Address [address] [place] [address] Phone Care Team Providers Care Supervisor Transcribing Operators Name Role Phone Merlene Hyde MD Primary Care Provider [phone] Reason for Visit * Reason Onset Date Comments Meet at appointment 09/09/2018 Encounter Details Date Type Department Care Team (Late st Contact Info) Description 09/09/2018 Patient Outreach [facility] 150 [place] [address] Merlene Hyde MD 150 [place] [address] Meet at appointment Social History Tobacco Use [...] filedocumented in this encounter Care Teams Supervisor Transcribing Operators Relationship Specialty Start Date End Date Merlene Hyde MD [address] [place] [address] CARIE Garcia [address] PCP - General 03/14/17 09/26/22 documented as of this encounter
--- OUTSIDE RECORDS SUMMARY | 2025-04-13 18:22 | XMS_ITS | Encounter Summary ---
Author Organization [facility] Address [address] [place] [address] Phone Care Team Providers Care Procedure Manager Name Role Phone Merlene Hyde MD Primary Care Provider [phone] Encounter Details Date Type Department Care Team (Late st Contact Info) Description 11/13/2016 Documentation [facility] [address] [place] [address] Family Medicine, Physician [address] [place] [address] Social History Tobacco Use Types Packs/Day Years [...] on filedocumented in this encounter Care Teams Procedure Manager Relationship Specialty Start Date End Date Merlene Hyde MD [address] [place] [address] [place] [address] PCP - General 03/14/17 09/26/22 documented as of this encounter
--- OUTSIDE RECORDS SUMMARY | 2025-04-13 18:22 | XMS_ITS | Encounter Summary ---
Author Organization [facility] Address [address] [place] [address] Phone Care Team Providers Care Diet Aid Name Role Phone Merlene Hyde MD Primary Care Provider [phone] Encounter Details Date Type Department Care Team (Late st Contact Info) Description 06/09/2018 Patient Outreach [facility] 150 [place] [address] Merlene Hyde MD 150 [place], [place] [id number] Social History Tobacco Use Types Packs/Day Years [...] on filedocumented in this encounter Care Teams Diet Aid Relationship Specialty Start Date End Date Merlene Hyde MD 150 [place] [address] PCP - General 03/14/17 09/26/22 documented as of this encounter
--- OUTSIDE RECORDS SUMMARY | 2025-04-13 18:22 | XMS_ITS | Encounter Summary ---
Author Organization [facility] Address [address] [place] [address] Phone Care Team Providers Care Claim Analyst Name Role Phone Merlene Hyde MD Primary Care Provider [phone] Encounter Details Date Type Department Care Team (Late st Contact Info) Description 07/20/2018 Patient Outreach [facility] 150 [place] [address] Merlene Hyde MD 150 [place] [address] Social History Tobacco Use Types Packs/Day Years [...] on filedocumented in this encounter Care Teams Claim Analyst Relationship Specialty Start Date End Date Merlene Hyde MD 150 [place] [address] PCP - General 03/14/17 09/26/22 documented as of this encounter
--- OUTSIDE RECORDS SUMMARY | 2025-04-13 18:22 | XMS_ITS | Encounter Summary ---
Author Organization [facility] Address [address] [place] [address] Phone Care Team Providers Care Financial Processing Clerk Name Role Phone Merlene Hyde MD Primary Care Provider [phone] Encounter Details Date Type Department Care Team (Late st Contact Info) Description 11/26/2016 Documentation [facility] Family Medicine [address] [place] [address] Family Medicine, Physician [address] [place] [address] Social History Tobacco Use Types Packs/Day Years [...] on filedocumented in this encounter Care Teams Financial Processing Clerk Relationship Specialty Start Date End Date Merlene Hyde MD [address] [place] [address] [place] [address] PCP - General 03/14/17 09/26/22 documented as of this encounter
--- OUTSIDE RECORDS SUMMARY | 2025-04-13 18:22 | XMS_ITS | Encounter Summary ---
Author Organization [facility] Address [address] [place] [address] Phone Care Team Providers Care Assisted Living Nursing Director Name Role Phone Merlene Hyde MD Primary Care Provider [phone] Encounter Details Date Type Department Care Team (Late st Contact Info) Description 03/20/2017 Conversion Encounter [facility] - [address] [address] Social History Tobacco Use Types Packs/Day Years [...] on filedocumented in this encounter Care Teams Assisted Living Nursing Director Relationship Specialty Start Date End Date Merlene Hyde MD [address] [place] [address] PCP - General 03/14/17 09/26/22 documented as of this encounter
--- OUTSIDE RECORDS SUMMARY | 2025-04-13 18:22 | XMS_ITS | Encounter Summary ---
Author Organization [facility] Address [address] [place] [address] Phone Care Team Providers Care Grated Cheese Maker Name Role Phone Merlene Hyde MD Primary Care Provider [phone] Encounter Details Date Type Department Care Team (Late st Contact Info) Description 05/01/2011 Documentation [facility] [place] [address] [place] [address] Family Medicine, Physician [address] [place] [address] Social History Tobacco Use Types Packs/Day Years [...] on filedocumented in this encounter Care Teams Grated Cheese Maker Relationship Specialty Start Date End Date Merlene Hyde MD [address] [place] [address] [place] [address] PCP - General 03/14/17 09/26/22 documented as of this encounter
--- OUTSIDE RECORDS SUMMARY | 2025-04-13 18:22 | XMS_ITS | Encounter Summary ---
Author Organization [facility] Address [address] [place] [address] Phone Care Team Providers Care Boom Supervisor Name Role Phone Merlene Hyde MD Primary Care Provider [phone] Reason for Visit * Reason Onset Date Comments Follow-up 11/11/2018 Encounter Details Date Type Department Care Team (Late st Contact Info) Description 11/11/2018 Patient Outreach [facility] 150 [place] [address] Merlene Hyde MD 150 [place] [address] Follow-up Social History Tobacco Use Types Packs/Day [...] on filedocumented in this encounter Care Teams Boom Supervisor Relationship Specialty Start Date End Date Merlene Hyde MD 150 [place] [address] PCP - General 03/14/17 09/26/22 documented as of this encounter
--- OUTSIDE RECORDS SUMMARY | 2025-04-13 18:22 | XMS_ITS | Encounter Summary ---
Author Organization [facility] Address [address] [place] [address] Phone Care Team Providers Care Legal Operations Manager Name Role Phone Merlene Hyde MD Primary Care Provider [phone] Reason for Visit * Reason Onset Date Comments Remind of appointment 11/09/2018 Encounter Details Date Type Department Care Team (Late st Contact Info) Description 11/09/2018 Patient Outreach [facility] 150 [place] [address] Merlene Hyde MD 150 [place] [address] Remind of appointment Social History Tobacco Use [...] on filedocumented in this encounter Care Teams Legal Operations Manager Relationship Specialty Start Date End Date Merlene Hyde MD [address] [place] [address] CARIE Garcia [address] PCP - General 03/14/17 09/26/22 documented as of this encounter
--- OUTSIDE RECORDS SUMMARY | 2025-04-13 18:22 | XMS_ITS | Encounter Summary ---
Author Organization [facility] Address [address] [place] [address] Phone Care Team Providers Care Sand Tester Name Role Phone Merlene Hyde MD Primary Care Provider [phone] Encounter Details Date Type Department Care Team (Late st Contact Info) Description 11/10/2015 Documentation [facility] [place] [address] [place] [address] Family Medicine, Physician [address] [place] [address] Social History Tobacco Use Types Packs/Day Years [...] on filedocumented in this encounter Care Teams Sand Tester Relationship Specialty Start Date End Date Merlene Hyde MD [address] [place] [address] [place] [address] PCP - General 03/14/17 09/26/22 documented as of this encounter
--- OUTSIDE RECORDS SUMMARY | 2025-04-13 18:22 | XMS_ITS | Encounter Summary ---
Author Organization [facility] Address [address] [place] [address] Phone Care Team Providers Care Zipper Setter Name Role Phone Merlene Hyde MD Primary Care Provider [phone] Reason for Visit * Reason Onset Date Comments Services for pt 09/28/2018 Encounter Details Date Type Department Care Team (Late st Contact Info) Description 09/28/2018 Patient Outreach [facility] 150 [place] [address] Merlene Hyde MD 150 [place] [address] Services for pt Social History Tobacco Use [...] on filedocumented in this encounter Care Teams Zipper Setter Relationship Specialty Start Date End Date Merlene Hyde MD 150 [place] [address] PCP - General 03/14/17 09/26/22 documented as of this encounter
--- OUTSIDE RECORDS SUMMARY | 2025-04-13 18:22 | XMS_ITS | Encounter Summary ---
Author Organization [facility] Address [address] [place] [address] Phone Care Team Providers Care Mine Wirer Name Role Phone Merlene Hyde MD Primary Care Provider [phone] Encounter Details Date Type Department Care Team (Late st Contact Info) Description 10/03/2009 Documentation [facility] [address] [place] [address] Family Medicine, Physician [address] [place] [address] Social History Tobacco Use Types Packs/Day Years [...] on filedocumented in this encounter Care Teams Mine Wirer Relationship Specialty Start Date End Date Merlene Hyde MD [address] [place] [address] [place] [address] PCP - General 03/14/17 09/26/22 documented as of this encounter
--- OUTSIDE RECORDS SUMMARY | 2025-04-13 18:22 | XMS_ITS | Encounter Summary ---
Author Organization [facility] Address [address] [place] [address] Phone Care Team Providers Care Power Plant Supervisor Name Role Phone Merlene Hyde MD Primary Care Provider [phone] Encounter Details Date Type Department Care Team (Late st Contact Info) Description 09/09/2018 Patient Outreach [facility] 150 [place] [address] Merlene Hyde MD 150 [place] [address] Social History Tobacco Use Types Packs/Day Years [...] filedocumented in this encounter Care Teams Power Plant Supervisor Relationship Specialty Start Date End Date Merlene Hyde MD 150 [place] [address] PCP - General 03/14/17 09/26/22 documented as of this encounter
--- OUTSIDE RECORDS SUMMARY | 2025-04-13 18:22 | XMS_ITS | Encounter Summary ---
Author Organization [facility] Address [address] [place] [address] Phone Care Team Providers Care Rail Car Welder Name Role Phone Merlene Hyde MD Primary Care Provider [phone] Encounter Details Date Type Department Care Team (Late st Contact Info) Description 07/13/2018 Patient Outreach [facility] 150 [place] [address] Merlene Hyde MD 150 [place] [address] Social History Tobacco Use Types Packs/Day Years [...] on filedocumented in this encounter Care Teams Rail Car Welder Relationship Specialty Start Date End Date Merlene Hyde MD [address] [place] [address] CARIE Garcia [address] PCP - General 03/14/17 09/26/22 documented as of this encounter
--- OUTSIDE RECORDS SUMMARY | 2025-04-13 18:22 | XMS_ITS | Encounter Summary ---
Author Organization [facility] Address [address] [place] [address] Phone Care Team Providers Care Grief Counsellor Name Role Phone Merlene Hyde MD Primary Care Provider [phone] Encounter Details Date Type Department Care Team (Late st Contact Info) Description 11/20/2016 Documentation [facility] Family Medicine [address] [place] [address] Family Medicine, Physician [address] [place] [address] Social History Tobacco Use Types Packs/Day Years [...] on filedocumented in this encounter Care Teams Grief Counsellor Relationship Specialty Start Date End Date Merlene Hyde MD [address] [place] [address] [place] [address] PCP - General 03/14/17 09/26/22 documented as of this encounter
--- OUTSIDE RECORDS SUMMARY | 2025-04-13 18:22 | XMS_ITS | Encounter Summary ---
Author Organization [facility] Address [address] [place] [address] Phone Care Team Providers Care Commercial Engineer Name Role Phone Merlene Hyde MD Primary Care Provider [phone] Encounter Details Date Type Department Care Team (Late st Contact Info) Description 07/26/2015 Documentation [facility] [place] [address] [place] [address] Family Medicine, Physician [address] [place] [address] Social History Tobacco Use Types Packs/Day Years [...] on filedocumented in this encounter Care Teams Commercial Engineer Relationship Specialty Start Date End Date Merlene Hyde MD [address] [place] [address] [place] [address] PCP - General 03/14/17 09/26/22 documented as of this encounter
--- OUTSIDE RECORDS SUMMARY | 2025-04-13 18:22 | XMS_ITS | Encounter Summary ---
Author Organization [facility] Address [address] [place] [address] Phone Care Team Providers Care Chief Operator Synthesis Name Role Phone Merlene Hyde MD Primary Care Provider [phone] Reason for Visit * Reason Onset Date Comments Remind of appointment 10/22/2018 Encounter Details Date Type Department Care Team (Late st Contact Info) Description 10/22/2018 Patient Outreach [facility] [place] 150 [place] [address] Merlene Hyde MD 150 [place] [address] Remind of appointment Social History Tobacco Use [...] filedocumented in this encounter Care Teams Chief Operator Synthesis Relationship Specialty Start Date End Date Merlene Hyde MD [address] [place] [address] CARIE Garcia [address] PCP - General 03/14/17 09/26/22 documented as of this encounter
--- OUTSIDE RECORDS SUMMARY | 2025-04-13 18:22 | XMS_ITS | Encounter Summary ---
Author Organization [facility] Address [address] [place] [address] Phone Care Team Providers Care Senior Technologist Name Role Phone Merlene Hyde MD Primary Care Provider [phone] Reason for Visit * Reason Onset Date Comments Missed appointment 09/02/2018 Encounter Details Date Type Department Care Team (Late st Contact Info) Description 09/02/2018 Patient Outreach [facility] 150 [place] [address] Merlene Hyde MD 150 [place] [address] Missed appointment Social History Tobacco Use Types [...] filedocumented in this encounter Care Teams Senior Technologist Relationship Specialty Start Date End Date Merlene Hyde MD [address] [place] [address] CARIE Garcia [address] PCP - General 03/14/17 09/26/22 documented as of this encounter
--- OUTSIDE RECORDS SUMMARY | 2025-04-13 18:22 | XMS_ITS | Encounter Summary ---
Author Organization [facility] Address [address] [place] [address] Phone Care Team Providers Care Senior Project Coordinator Name Role Phone Merlene Hyde MD Primary Care Provider [phone] Encounter Details Date Type Department Care Team (Late st Contact Info) Description 05/23/[address] [facility] Family Medicine [address] [place] [address] Family Medicine, Physician [address] [place] [address] Social History Tobacco Use Types Packs/Day Years [...] filedocumented in this encounter Care Teams Senior Project Coordinator Relationship Specialty Start Date End Date Merlene Hyde MD [address] [place] [address] [place] [address] PCP - General 03/14/17 09/26/22 documented as of this encounter
--- OUTSIDE RECORDS SUMMARY | 2025-04-13 18:22 | XMS_ITS | Encounter Summary ---
Author Organization [facility] Address [address] [place] [address] Phone Care Team Providers Care Orthotist/Prosthetist Name Role Phone Merlene Hyde MD Primary Care Provider [phone] Reason for Visit * Reason Onset Date Comments Follow up LTSS 11/02/2018 Encounter Details Date Type Department Care Team (Late st Contact Info) Description 11/02/2018 Patient Outreach [facility] 150 [place] [address] Merlene Hyde MD 150 [place] [address] Follow up LTSS Social History Tobacco Use [...] on filedocumented in this encounter Care Teams Orthotist/Prosthetist Relationship Specialty Start Date End Date Merlene Hyde MD [address] [place] [address] CARIE Garcia [address] PCP - General 03/14/17 09/26/22 documented as of this encounter
--- OUTSIDE RECORDS SUMMARY | 2025-04-13 18:22 | XMS_ITS | Encounter Summary ---
Author Organization [facility] Address [address] [place] [address] Phone Care Team Providers Care Scrap Charger Name Role Phone Merlene Hyde MD Primary Care Provider [phone] Encounter Details Date Type Department Care Team (Late st Contact Info) Description 06/16/2018 Patient Outreach [facility] 150 [place] [address] Merlene Hyde MD 150 [place] [address] Social History Tobacco Use Types Packs/Day Years [...] on filedocumented in this encounter Care Teams Scrap Charger Relationship Specialty Start Date End Date Merlene Hyde MD [address] [place] [address] CARIE Garcia [address] PCP - General 03/14/17 09/26/22 documented as of this encounter
--- OUTSIDE RECORDS SUMMARY | 2025-04-13 18:22 | XMS_ITS | Encounter Summary ---
Author Organization [facility] Address [address] [place] [address] Phone Care Team Providers Care Forest Ecology Professor Name Role Phone Merlene Hyde MD Primary Care Provider [phone] Encounter Details Date Type Department Care Team (Late st Contact Info) Description 09/11/2018 Patient Outreach [facility] 150 [place] [address] Merlene Hyde MD 150 [place], [place] [phone] Social History Tobacco Use Types Packs/Day Years [...] filedocumented in this encounter Care Teams Forest Ecology Professor Relationship Specialty Start Date End Date Merlene Hyde MD 150 [place] [address] PCP - General 03/14/17 09/26/22 documented as of this encounter
--- OUTSIDE RECORDS SUMMARY | 2025-04-13 18:22 | XMS_ITS | Encounter Summary ---
Author Organization [facility] Address [address] [place] [address] Phone Care Team Providers Care Retail Sales Merchandiser Development Name Role Phone Merlene Hyde MD Primary Care Provider [phone] Encounter Details Date Type Department Care Team (Late st Contact Info) Description 07/08/2018 Patient Outreach [facility] [place] [address] [place] [address] Merlene Hyde MD 150 [place], [place] [id number] Social History Tobacco Use Types Packs/Day Years [...] on filedocumented in this encounter Care Teams Retail Sales Merchandiser Development Relationship Specialty Start Date End Date Merlene Hyde MD 150 [place] [address] PCP - General 03/14/17 09/26/22 documented as of this encounter
--- OUTSIDE RECORDS SUMMARY | 2025-04-13 18:22 | XMS_ITS | Encounter Summary ---
Author Organization [facility] Address [address] [place] [address] Phone Care Team Providers Care Car Servicer Name Role Phone Merlene Hyde MD Primary Care Provider [phone] Reason for Visit * Reason Onset Date Comments Remind of appointment 11/25/2018 Encounter Details Date Type Department Care Team (Late st Contact Info) Description 11/25/2018 Patient Outreach [facility] [place] 150 [place] [address] Merlene Hyde MD [address] [place] [address] Remind of appointment Social History Tobacco Use [...] filedocumented in this encounter Care Teams Car Servicer Relationship Specialty Start Date End Date Merlene Hyde MD 150 [facility] CAREI Garcia [address] PCP - General 03/14/17 09/26/22 documented as of this encounter
--- OUTSIDE RECORDS SUMMARY | 2025-04-13 18:22 | XMS_ITS | Encounter Summary ---
Author Organization [facility] Address [address] [place] [address] Phone Care Team Providers Care Property Claims Adjuster Name Role Phone Merlene Hyde MD Primary Care Provider [phone] Reason for Visit * Reason Onset Date Comments Appointment Cancelled 10/19/2018 Encounter Details Date Type Department Care Team (Late st Contact Info) Description 10/19/2018 Patient Outreach [facility] [place] 150 [place] [address] Merlene Hyde MD 150 [place] [address] Appointment Cancelled Social History Tobacco Use Types [...] filedocumented in this encounter Care Teams Property Claims Adjuster Relationship Specialty Start Date End Date Merlene Hyde MD 150 [facility] CARIE Garcia [address] PCP - General 03/14/17 09/26/22 documented as of this encounter
--- OUTSIDE RECORDS SUMMARY | 2025-04-13 18:22 | XMS_ITS | Encounter Summary ---
Author Organization [facility] Address [address] [place] [address] Phone Care Team Providers Care Baseball Glove Shaper Name Role Phone Merlene Hyde MD Primary Care Provider [phone] Reason for Visit * Reason Onset Date Comments Follow-up 10/01/2018 Encounter Details Date Type Department Care Team (Late st Contact Info) Description 10/01/2018 Patient Outreach [facility] [place] 150 [place] [address] Merlene Hyde MD [address] [place] [address] Follow-up Social History Tobacco Use Types Packs/Day [...] on filedocumented in this encounter Care Teams Baseball Glove Shaper Relationship Specialty Start Date End Date Merlene Hyde MD [address] [place] [address] CARIE Garcia [address] PCP - General 03/14/17 09/26/22 documented as of this encounter
--- OUTSIDE RECORDS SUMMARY | 2025-04-13 18:22 | XMS_ITS | Encounter Summary ---
Author Organization [facility] Address [address] [place] [address] Phone Care Team Providers Care Safety Sitter Name Role Phone Merlene Hyde MD Primary Care Provider [phone] Reason for Visit * Reason Onset Date Comments Missed appointments 09/22/2018 Encounter Details Date Type Department Care Team (Late st Contact Info) Description 09/22/2018 Patient Outreach [facility] [place] 150 [place] [address] Merlene Hyde MD 150 [place] [address] Missed appointments Social History Tobacco Use Types [...] on filedocumented in this encounter Care Teams Safety Sitter Relationship Specialty Start Date End Date Merlene Hyde MD [address] [place] [address] CARIE Garcia [address] PCP - General 03/14/17 09/26/22 documented as of this encounter
--- OUTSIDE RECORDS SUMMARY | 2025-04-13 18:22 | XMS_ITS | Encounter Summary ---
Author Organization [facility] Address [address] [place] [address] Phone Care Team Providers Care Soil Engineer Name Role Phone Merlene Hyde MD Primary Care Provider [phone] Encounter Details Date Type Department Care Team (Late st Contact Info) Description 09/09/2018 Patient Outreach [facility] 150 [place] [address] Merlene Hyde MD 150 [place] [address] Social History Tobacco Use Types Packs/Day Years [...] on filedocumented in this encounter Care Teams Soil Engineer Relationship Specialty Start Date End Date Merlene Hyde MD 150 [place] [address] PCP - General 03/14/17 09/26/22 documented as of this encounter
--- OUTSIDE RECORDS SUMMARY | 2025-04-13 18:23 | XMS_ITS | Encounter Summary ---
Author Organization [facility] Address [address] [place] [address] Phone Care Team Providers Care Package Designer Name Role Phone Merlene Hyde MD Primary Care Provider [phone] Encounter Details Date Type Department Care Team (Late st Contact Info) Description 05/25/2014 Documentation [facility] [place] Family Medicine [address] [place] [address] Family Medicine, Physician [address] [place] [address] Social History Tobacco Use Types Packs/Day Years [...] on filedocumented in this encounter Care Teams Package Designer Relationship Specialty Start Date End Date Merlene Hyde MD [address] [place] [address] [place] [address] PCP - General 03/14/17 09/26/22 documented as of this encounter
--- OUTSIDE RECORDS SUMMARY | 2025-04-13 18:23 | XMS_ITS | Encounter Summary ---
Author Organization [facility] Address [address] [place] [address] Phone Care Team Providers Care Licensed Occupational Therapist Name Role Phone Merlene Hyde MD Primary Care Provider [phone] Encounter Details Date Type Department Care Team (Late st Contact Info) Description 08/05/2018 Patient Outreach [facility] [place] 150 [place] [address] Merlene Hyde MD 150 [place] [address] Social History Tobacco Use Types Packs/Day Years [...] on filedocumented in this encounter Care Teams Licensed Occupational Therapist Relationship Specialty Start Date End Date Merlene Hyde MD 150 [facility] CARIE Garcia [address] PCP - General 03/14/17 09/26/22 documented as of this encounter
--- OUTSIDE RECORDS SUMMARY | 2025-04-13 18:23 | XMS_ITS | Encounter Summary ---
Author Organization [facility] Address [address] [place] [address] Phone Care Team Providers Care Tenant Coordinator Name Role Phone Merlene Hyde MD Primary Care Provider [phone] Encounter Details Date Type Department Care Team (Late st Contact Info) Description 08/18/2018 Patient Outreach [facility] 150 [place] [address] Merlene Hyde MD 150 [place] [address] Social History Tobacco Use Types Packs/Day Years [...] on filedocumented in this encounter Care Teams Tenant Coordinator Relationship Specialty Start Date End Date Merlene Hyde MD 150 [place] [address] PCP - General 03/14/17 09/26/22 documented as of this encounter
--- OUTSIDE RECORDS SUMMARY | 2025-04-13 18:23 | XMS_ITS | Encounter Summary ---
Author Organization [facility] Address [address] [place] [address] Phone Care Team Providers Care Sergeant Missile Crewman Name Role Phone Merlene Hyde MD Primary Care Provider [phone] Encounter Details Date Type Department Care Team (Late st Contact Info) Description 08/17/2018 Patient Out[facility] [place] 150 [place] [address] Merlene Hyde MD 150 [place] [address] Social History Tobacco Use Types Packs/Day Years [...] on filedocumented in this encounter Care Teams Sergeant Missile Crewman Relationship Specialty Start Date End Date Merlene Hyde MD 150 [facility] CARIE Garcia [address] PCP - General 03/14/17 09/26/22 documented as of this encounter
--- OUTSIDE RECORDS SUMMARY | 2025-04-13 18:23 | XMS_ITS | Encounter Summary ---
Author Organization [facility] Address [address] [place] [address] Phone Care Team Providers Care Radio Communications Superintendent Name Role Phone Merlene Hyde MD Primary Care Provider [phone] Encounter Details Date Type Department Care Team (Late st Contact Info) Description 06/01/2014 Documentation [facility] [place] Medicine [address] [place] [address] Family Medicine, Physician [address] [place] [address] Social History Tobacco Use Types Packs/Day Years [...] on filedocumented in this encounter Care Teams Radio Communications Superintendent Relationship Specialty Start Date End Date Merlene Hyde MD [address] [place] [address] [place] [address] PCP - General 03/14/17 09/26/22 documented as of this encounter
--- OUTSIDE RECORDS SUMMARY | 2025-04-13 18:23 | XMS_ITS | Encounter Summary ---
Author Organization [facility] Address [address] [place] [address] Phone Care Team Providers Care Outboard Technician Name Role Phone Merlene Hyde MD Primary Care Provider [phone] Encounter Details Date Type Department Care Team (Late st Contact Info) Description 09/03/2018 Patient Outreach [facility] [place] 150 [place] [address] Merlene Hyde MD 150 [place] [address] Social History Tobacco Use Types Packs/Day Years [...] on filedocumented in this encounter Care Teams Outboard Technician Relationship Specialty Start Date End Date eMrlene Hyde MD 150 [facility] CARIE Garcia [address] PCP - General 03/14/17 09/26/22 documented as of this encounter
--- OUTSIDE RECORDS SUMMARY | 2025-04-13 18:23 | XMS_ITS | Encounter Summary ---
Author Organization [facility] Address [address] [place] [address] Phone Care Team Providers Care Shift Commander Name Role Phone Merlene Hyde MD Primary Care Provider [phone] Encounter Details Date Type Department Care Team (Late st Contact Info) Description 09/30/[address] [facility] [place] Family Medicine [address] [place] [address] Family Medicine, Physician [address] [place] [address] Social History Tobacco Use Types Packs/Day Years [...] on filedocumented in this encounter Care Teams Shift Commander Relationship Specialty Start Date End Date Merlene Hyde MD [address] [place] [address] [place] [address] PCP - General 03/14/17 09/26/22 documented as of this encounter
--- OUTSIDE RECORDS SUMMARY | 2025-04-13 18:23 | XMS_ITS | Encounter Summary ---
Author Organization [facility] Address [address] [place] [address] Phone Care Team Providers Care Space Operations Officer Name Role Phone Merlene Hyde MD Primary Care Provider [phone] Reason for Visit * Reason Onset Date Comments [facility] Follow up 09/03/2018 Encounter Details Date Type Department Care Team (Late st Contact Info) Description 09/03/2018 Patient Outreach [facility] 150 [place] [address] Merlene Hyde MD 150 [place] [address] [facility] Follow up Social History Tobacco Use Types [...] on filedocumented in this encounter Care Teams Space Operations Officer Relationship Specialty Start Date End Date Merlene Hyde MD 150 [place] [address] PCP - General 03/14/17 09/26/22 documented as of this encounter
--- OUTSIDE RECORDS SUMMARY | 2025-04-13 18:23 | XMS_ITS | Encounter Summary ---
Author Organization [facility] Address [address] [place] [address] Phone Care Team Providers Care Psychologist Research Assistant Name Role Phone Merlene Hyde MD Primary Care Provider [phone] Encounter Details Date Type Department Care Team (Late st Contact Info) Description 12/16/2014 Documentation [facility] [place] Family Medicine [address] [place] [address] Family Medicine, Physician [address] [place] [address] Social History Tobacco Use Types Packs/Day Years [...] on filedocumented in this encounter Care Teams Psychologist Research Assistant Relationship Specialty Start Date End Date Merlene Hyde MD [address] [place] [address] [place] [address] PCP - General 03/14/17 09/26/22 documented as of this encounter
--- OUTSIDE RECORDS SUMMARY | 2025-04-13 18:23 | XMS_ITS | Encounter Summary ---
Author Organization [facility] Address [address] [place] [address] Phone Care Team Providers Care General Machine Operator Name Role Phone Merlene Hyde MD Primary Care Provider [phone] Encounter Details Date Type Department Care Team (Late st Contact Info) Description 09/02/2018 Patient Outreach [facility] 150 [place] [address] Merlene Hyde MD 150 [place] [address] Social History Tobacco Use Types Packs/Day Years [...] filedocumented in this encounter Care Teams General Machine Operator Relationship Specialty Start Date End Date Merlene Hyde MD 150 [place] [address] PCP - General 03/14/17 09/26/22 documented as of this encounter
--- OUTSIDE RECORDS SUMMARY | 2025-04-13 18:23 | XMS_ITS | Encounter Summary ---
Author Organization [facility] Address [address] [place] [address] Phone Care Team Providers Care Power Builder Developer Name Role Phone Merlene Hyde MD Primary Care Provider [phone] Encounter Details Date Type Department Care Team (Late st Contact Info) Description 08/07/2018 Patient Outreach [facility] 150 [place] [address] Merlene Hyde MD 150 [place] [address] Social History Tobacco Use Types Packs/Day Years [...] filedocumented in this encounter Care Teams Power Builder Developer Relationship Specialty Start Date End Date Merlene Hyde MD 150 [place] [address] PCP - General 03/14/17 09/26/22 documented as of this encounter
--- OUTSIDE RECORDS SUMMARY | 2025-04-13 18:23 | XMS_ITS | Encounter Summary ---
Author Organization [facility] Address [address] [place] [address] Phone Care Team Providers Care Technical System Analyst Name Role Phone Merlene Hyde MD Primary Care Provider [phone] Encounter Details Date Type Department Care Team (Late st Contact Info) Description 08/31/2018 Patient Outreach [facility] [place] 150 [place] [address] Merlene Hyde MD 150 [place] [address] Social History Tobacco Use Types Packs/Day Years [...] on filedocumented in this encounter Care Teams Technical System Analyst Relationship Specialty Start Date End Date Merlene Hyde MD 150 [place] [address] PCP - General 03/14/17 09/26/22 documented as of this encounter
--- OUTSIDE RECORDS SUMMARY | 2025-04-13 18:23 | XMS_ITS | Encounter Summary ---
Author Organization [facility] Address [address] [place] [address] Phone Care Team Providers Care Securities And Real Estate Director Name Role Phone Merlene Hyde MD Primary Care Provider [phone] Encounter Details Date Type Department Care Team (Late st Contact Info) Description 07/27/2018 Patient Outreach [facility] 150 [place] [address] Merlene Hyde MD 150 [place] [address] Social History Tobacco Use Types Packs/Day Years [...] on filedocumented in this encounter Care Teams Securities And Real Estate Director Relationship Specialty Start Date End Date Merlene Hyde MD 150 [place] [address] PCP - General 03/14/17 09/26/22 documented as of this encounter
--- OUTSIDE RECORDS SUMMARY | 2025-04-13 18:23 | XMS_ITS | Encounter Summary ---
Author Organization [facility] Address [address] [place] [address] Phone Care Team Providers Care Care Aid Name Role Phone Merlene Hyde MD Primary Care Provider [phone] Reason for Visit * Reason Onset Date Comments Neuropsych Testing 08/28/2018 Encounter Details Date Type Department Care Team (Late st Contact Info) Description 08/28/2018 Patient Outreach [facility] [place] 150 [place] [address] Merlene Hyde MD 150 [place] [address] Neuropsych Testing Social History Tobacco Use Types [...] on filedocumented in this encounter Care Teams Care Aid Relationship Specialty Start Date End Date Merlene Hyde MD 150 [facility] CARIE Garcia [address] PCP - General 03/14/17 09/26/22 documented as of this encounter
--- OUTSIDE RECORDS SUMMARY | 2025-04-13 18:23 | XMS_ITS | Encounter Summary ---
Author Organization [facility] Address [address] [place] [address] Phone Care Team Providers Care Box Folding Machine Operator Name Role Phone Merlene Hyde MD Primary Care Provider [phone] Encounter Details Date Type Department Care Team (Late st Contact Info) Description 05/25/2014 Documentation [facility] [place] Family Medicine [address] [place] [address] Family Medicine, Physician [address] [place] [address] Social History Tobacco Use Types Packs/Day Years [...] on filedocumented in this encounter Care Teams Box Folding Machine Operator Relationship Specialty Start Date End Date Merlene Hyde MD [address] [place] [address] [place] [address] PCP - General 03/14/17 09/26/22 documented as of this encounter
--- OUTSIDE RECORDS SUMMARY | 2025-04-13 18:23 | XMS_ITS | Encounter Summary ---
Author Organization [facility] Address [address] [place] [address] Phone Care Team Providers Care Respite Coordinator Name Role Phone Merlene Hyde MD Primary Care Provider [phone] Reason for Visit * Reason Onset Date Comments Endocrinology appointment 09/01/2018 Encounter Details Date Type Department Care Team (Late st Contact Info) Description 09/01/2018 Patient Outreach [facility] [place] 150 [place] [address] Merlene Hyde MD 150 [place] [address] Endocrinology appointment Social History Tobacco Use Types [...] on filedocumented in this encounter Care Teams Respite Coordinator Relationship Specialty Start Date End Date Merlene Hyde MD [address] [place] [address] CARIE Garcia [address] PCP - General 03/14/17 09/26/22 documented as of this encounter
--- OUTSIDE RECORDS SUMMARY | 2025-04-13 18:23 | XMS_ITS | Encounter Summary ---
Author Organization [facility] Address [address] [place] [address] Phone Care Team Providers Care Multi Skilled Operator Name Role Phone Merlene Hyde MD Primary Care Provider [phone] Encounter Details Date Type Department Care Team (Late st Contact Info) Description 08/13/2018 Patient Outreach [facility] [place] 150 [place] [address] Merlene Hyde MD 150 [place] [address] Social History Tobacco Use Types Packs/Day Years [...] on filedocumented in this encounter Care Teams Multi Skilled Operator Relationship Specialty Start Date End Date Merlene Hyde MD [address] [place] [address] CARIE Garcia [address] PCP - General 03/14/17 09/26/22 documented as of this encounter
--- OUTSIDE RECORDS SUMMARY | 2025-04-13 18:23 | XMS_ITS | Encounter Summary ---
Author Organization [facility] Address [address] [place] [address] Phone Care Team Providers Care Careers Counsellor Name Role Phone Merlene Hyde MD Primary Care Provider [phone] Reason for Visit * Reason Onset Date Comments Remind of Appointment 08/28/2018 Encounter Details Date Type Department Care Team (Late st Contact Info) Description 08/28/2018 Patient Outreach [facility] [place] 150 [place] [address] Merlene Hyde MD 150 [place] [address] Remind of Appointment Social History Tobacco Use [...] on filedocumented in this encounter Care Teams Careers Counsellor Relationship Specialty Start Date End Date Merlene Hyde MD [address] [place] [address] CARIE Garcia [address] PCP - General 03/14/17 09/26/22 documented as of this encounter
== END 2025-04-13 15:55 | disposition home or self-care (01) ==
PROVIDERS: PCP Family Medicine; Visit Provider Nurse Practitioner Family
DX: Z93.3 Colostomy status (principal); R10.84 Generalized abdominal pain; R10.13 Epigastric pain
CPT/HCPCS: 99213

== ENCOUNTER → 2025-04-13 15:25 | Outpatient (BNVA) | payer OTHER, SELFPAY | PROVIDERS: PCP Family Medicine; Visit Provider Nurse Practitioner Family | DX: R10.84 Generalized abdominal pain (principal); R10.13 Epigastric pain; Z93.3 Colostomy status | CPT/HCPCS: 99212 ==